=== PATIENT | male | born 1970 | race African-American/Black ===

== ENCOUNTER 2017-12-22 08:41 | Inpatient (IN) | payer MEDICARE, MEDICAID ==
[2017-12-22] MEDS: ONDANSETRON 4 MG INJ IV (09:40)
[2017-12-22 09:53] LABS: ADD MAN DIFF? NO
[2017-12-22 10:01] LABS: WHITE BLOOD COUNT 11.7 10^3/ul (4.8-10.8)
[2017-12-22 10:01] LABS: ABNORMAL IP MESSAGE 1; BASOPHILS % 0.2 % (0.0-2.0); EOSINOPHILS % 0.1 % (0.0-7.0); HEMOGLOBIN 15.7 g/dl (14.0-18.0); LYMPHOCYTES # 0.2 10^3/ul (0.8-2.9); LYMPHOCYTES % 1.6 % (15.0-51.0); MEAN CORPUSCULAR HEMOGLOBIN 27.6 pg (29.0-33.0); MEAN CORPUSCULAR HGB CONC 34.1 g/dl (32.0-37.0); MONOCYTE # 0.7 10^3/ul (0.3-0.9); MONOCYTES % 6.2 % (0.0-11.0); NEUTROPHIL # 10.7 10^3/ul (1.6-7.5); PLATELET COUNT 172 10^3/UL (140-415); POSITIVE DIFF @See below; RED BLOOD COUNT 5.68 10^6/ul (4.70-6.10); RED CELL DISTRIBUTION WIDTH 13.9 % (11.5-14.5)
[2017-12-22 10:14] LABS: ALANINE AMINOTRANSFERASE 78 IU/L (13-69); ALBUMIN 4.6 g/dl (3.3-4.9); ALBUMIN/GLOBULIN RATIO 0.97; ALKALINE PHOSPHATASE 169 IU/L (42-121); ANION GAP 23 (8-16); ASPARTATE AMINO TRANSFERASE 55 IU/L (15-46); BILIRUBIN,INDIRECT 1.4 mg/dl (0-1.1); BILIRUBIN,TOTAL 1.4 mg/dl (0.2-1.3); BLOOD UREA NITROGEN 14 mg/dl (7-20); CALCIUM 9.6 mg/dl (8.4-10.2); CARBON DIOXIDE 19 mmol/L (21-31); CHLORIDE 87 mmol/L (97-110); CREATININE 0.66 mg/dl (0.61-1.24); GLUCOSE 111 mg/dl (70-220); LIPASE 64 U/L (23-300); POTASSIUM 5.1 mmol/L (3.5-5.1); SODIUM 124 mmol/L (135-144); TOTAL PROTEIN 9.3 g/dl (6.1-8.1)
[2017-12-22 10:26] LABS: TROPONIN-I < 0.012 ng/ml (0.000-0.120)
[2017-12-22 10:35] LABS: ADD UMIC YES; UR ASCORBIC ACID 40 mg/dL (NEGATIVE); UR BACTERIA FEW /HPF (NONE SEEN); UR BILIRUBIN (Dip) NEGATIVE (NEGATIVE); UR BLOOD (Dip) 1+ mg/dL (NEGATIVE); UR CLARITY SLIGHTLY CLOUDY (CLEAR); UR COLOR AMBER (YELLOW); UR GLUCOSE (Dip) NEGATIVE (NEGATIVE); UR KETONES (Dip) NEGATIVE (NEGATIVE); UR LEUKOCYTE ESTERASE (Dip) 1+ Leu/ul (NEGATIVE); UR MUCUS FEW /HPF (NONE SEEN); UR NITRITE (Dip) NEGATIVE (NEGATIVE); UR RBC 46 /HPF (0-5); UR SPECIFIC GRAVITY (Dip) 1.029 (1.003-1.030); UR SQUAMOUS EPITHELIAL CELL FEW /HPF (FEW); UR TOTAL PROTEIN (Dip) 3+ mg/dl (NEGATIVE); UR UROBILINOGEN (Dip) 1+ mg/dL (NEGATIVE); UR WBC 142 /HPF (0-5)
[2017-12-22] MEDS: METOCLOPRAMIDE 10 MG INJ IV (10:51)
[2017-12-22] MEDS: FAMOTIDINE 20 MG INJ IV (10:51)
[2017-12-22 11:08] LABS: ANISOCYTOSIS 1+ (0-0); BAND NEUTROPHILS #M 2.8 10^3/ul (0.0-0.6); BAND NEUTROPHILS % (M) 24 % (0-4); LYMPHOCYTES #M 0.2 10^3/ul (0.8-2.9); LYMPHOCYTES % (M) 2 % (15-51); MONOCYTE #M 0.7 10^3/ul (0.3-0.9); MONOCYTES % (M) 6 % (0-11); PLATELET ESTIMATE NORMAL; POIKILOCYTOSIS 2+ (0-0); SEG NEUT #M 8.3 10^3/ul (1.6-7.5); SEGMENTED NEUTROPHILS (M) % 68 % (39-77); SMUDGE%M 3 % (0-0)
[2017-12-22] MEDS: PIPER-TAZO 3.375 GM IV (PMX) 100 ML IVPB ×2 (11:23→18:23)
[2017-12-22] MEDS: SODIUM CHLORIDE 0.9% 1L BAG IV* (11:23)
[2017-12-22] MEDS ORDERED: NEOSTIGMINE 10 MG INJ IV (12:00)
[2017-12-22] MEDS ORDERED: MAGNESIUM HYDROXIDE 30ML CUP PO (12:30)
[2017-12-22] MEDS ORDERED: DOCUSATE SODIUM 100 MG CAP PO (12:30)
[2017-12-22] MEDS ORDERED: NACL 0.9% 3 ML SYG IV (12:30)
[2017-12-22] MEDS: NEOSTIGMINE 3 MG/3 ML SYRINGE IV (12:45)
[2017-12-22] MEDS: SOD CHLORIDE 0.9% 1,000 ML IV ×3 (12:45→17:10)
[2017-12-22] MEDS ORDERED: hydrALAzine 20 MG INJ (13:17)
[2017-12-22 15:06] LABS: LACTIC ACID 3.4 mmol/L (0.5-2.0)
[2017-12-22 17:32] LABS: LACTIC ACID 2.2 mmol/L (0.5-2.0)
[2017-12-22] MEDS: DIAZEPAM 5 MG/ML SYG IV (20:22)
[2017-12-23] MEDS: DIAZEPAM 5 MG/ML SYG IV ×4 (00:28→18:40)
[2017-12-23] MEDS: PIPER-TAZO 3.375 GM IV (PMX) 100 ML IVPB ×4 (00:28→18:39)
[2017-12-23] MEDS: SOD CHLORIDE 0.9% 1,000 ML IV ×4 (00:29→21:41)
[2017-12-23 06:17] LABS: ADD MAN DIFF? NO
[2017-12-23 06:26] LABS: ABNORMAL IP MESSAGE 1; BASOPHILS % 0.2 % (0.0-2.0); EOSINOPHILS % 0.1 % (0.0-7.0); HEMATOCRIT 37.6 % (42.0-52.0); LYMPHOCYTES # 0.4 10^3/ul (0.8-2.9); MEAN CORPUSCULAR HEMOGLOBIN 27.5 pg (29.0-33.0); MEAN CORPUSCULAR HGB CONC 34.6 g/dl (32.0-37.0); MEAN CORPUSCULAR VOLUME 79.5 fl (82.0-101.0); MEAN PLATELET VOLUME 11.4 fl (7.4-10.4); MONOCYTES % 11.7 % (0.0-11.0); NEUTROPHILS % 82.3 % (39.0-77.0); PLATELET COUNT 211 10^3/UL (140-415); POSITIVE DIFF @See below; RED BLOOD COUNT 4.73 10^6/ul (4.70-6.10); RED CELL DISTRIBUTION WIDTH 14.1 % (11.5-14.5)
[2017-12-23 06:26] LABS: WHITE BLOOD COUNT 8.6 10^3/ul (4.8-10.8)
[2017-12-23 07:11] LABS: ALANINE AMINOTRANSFERASE 58 IU/L (13-69); ALBUMIN/GLOBULIN RATIO 0.88; ALKALINE PHOSPHATASE 121 IU/L (42-121); ANION GAP 18 (8-16); ASPARTATE AMINO TRANSFERASE 26 IU/L (15-46); BLOOD UREA NITROGEN 15 mg/dl (7-20); CALCIUM 8.6 mg/dl (8.4-10.2); CARBON DIOXIDE 20 mmol/L (21-31); CHLORIDE 98 mmol/L (97-110); CREATININE 0.68 mg/dl (0.61-1.24); GLUCOSE 90 mg/dl (70-220); PHOSPHORUS 3.1 mg/dl (2.5-4.9); POTASSIUM 3.7 mmol/L (3.5-5.1); SODIUM 132 mmol/L (135-144); TOTAL PROTEIN 6.4 g/dl (6.1-8.1)
[2017-12-23 08:01] LABS: HEMOGLOBIN A1C 5.4 % (0-5.9)
[2017-12-23] MEDS: hydrALAzine 20 MG INJ IV (12:05)
[2017-12-24] MEDS: DIAZEPAM 5 MG/ML SYG IV ×3 (00:37→11:35)
[2017-12-24] MEDS: hydrALAzine 20 MG INJ IV (01:14)
[2017-12-24] MEDS: PIPER-TAZO 3.375 GM IV (PMX) 100 ML IVPB ×5 (05:33→23:33)
[2017-12-24] MEDS: SOD CHLORIDE 0.9% 1,000 ML IV ×3 (05:41→23:37)
[2017-12-24 06:07] LABS: ADD MAN DIFF? NO
[2017-12-24 06:11] LABS: BASOPHILS % 0.2 % (0.0-2.0); EOSINOPHILS % 0.2 % (0.0-7.0); HEMATOCRIT 36.4 % (42.0-52.0); HEMOGLOBIN 12.6 g/dl (14.0-18.0); LYMPHOCYTES % 6.3 % (15.0-51.0); MEAN CORPUSCULAR HEMOGLOBIN 28.2 pg (29.0-33.0); MEAN CORPUSCULAR HGB CONC 34.6 g/dl (32.0-37.0); MEAN CORPUSCULAR VOLUME 81.4 fl (82.0-101.0); MEAN PLATELET VOLUME 10.6 fl (7.4-10.4); MONOCYTES % 11.1 % (0.0-11.0); PLATELET COUNT 188 10^3/UL (140-415); RED BLOOD COUNT 4.47 10^6/ul (4.70-6.10)
[2017-12-24 06:11] LABS: WHITE BLOOD COUNT 8.1 10^3/ul (4.8-10.8)
[2017-12-24 06:12] LABS: ABNORMAL IP MESSAGE 1; LYMPHOCYTES # 0.5 10^3/ul (0.8-2.9); MONOCYTE # 0.9 10^3/ul (0.3-0.9); NEUTROPHIL # 6.6 10^3/ul (1.6-7.5); POSITIVE DIFF @See below
[2017-12-24 06:34] LABS: ANION GAP 17 (8-16); BLOOD UREA NITROGEN 16 mg/dl (7-20); CALCIUM 8.2 mg/dl (8.4-10.2); CARBON DIOXIDE 21 mmol/L (21-31); CHLORIDE 105 mmol/L (97-110); CREATININE 0.57 mg/dl (0.61-1.24); GLUCOSE 73 mg/dl (70-220); MAGNESIUM 2.1 mg/dl (1.7-2.5); SODIUM 140 mmol/L (135-144)
[2017-12-24 06:42] LABS: POTASSIUM 2.9 mmol/L (3.5-5.1)
[2017-12-24] MEDS: POTASSIUM CHLORIDE 100 ML IVPB ×3 (07:32→11:35)
[2017-12-24] MEDS: BISACODYL 10 MG SUPP PR (16:17)
[2017-12-24] MEDS: KETOROLAC 30 MG INJ IV (22:15)
[2017-12-25] MEDS: hydrALAzine 20 MG INJ IV ×2 (01:29→16:08)
[2017-12-25] MEDS: morphine 2 MG INJ IV (02:35)
[2017-12-25 05:42] LABS: ADD MAN DIFF? NO
[2017-12-25 05:51] LABS: WHITE BLOOD COUNT 9.1 10^3/ul (4.8-10.8)
[2017-12-25 05:51] LABS: BASOPHILS % 0.4 % (0.0-2.0); EOSINOPHILS % 0.3 % (0.0-7.0); HEMATOCRIT 37.1 % (42.0-52.0); HEMOGLOBIN 12.3 g/dl (14.0-18.0); LYMPHOCYTES # 0.6 10^3/ul (0.8-2.9); LYMPHOCYTES % 6.9 % (15.0-51.0); MEAN CORPUSCULAR HEMOGLOBIN 27.3 pg (29.0-33.0); MEAN CORPUSCULAR HGB CONC 33.2 g/dl (32.0-37.0); MEAN CORPUSCULAR VOLUME 82.3 fl (82.0-101.0); MEAN PLATELET VOLUME 10.1 fl (7.4-10.4); MONOCYTE # 0.9 10^3/ul (0.3-0.9); MONOCYTES % 9.6 % (0.0-11.0); NEUTROPHIL # 7.2 10^3/ul (1.6-7.5); PLATELET COUNT 197 10^3/UL (140-415); RED BLOOD COUNT 4.51 10^6/ul (4.70-6.10); RED CELL DISTRIBUTION WIDTH 14.5 % (11.5-14.5)
[2017-12-25] MEDS: PIPER-TAZO 3.375 GM IV (PMX) 100 ML IVPB ×3 (06:03→16:52)
[2017-12-25 06:10] LABS: ANION GAP 16 (8-16); BLOOD UREA NITROGEN 15 mg/dl (7-20); CALCIUM 8.4 mg/dl (8.4-10.2); CARBON DIOXIDE 19 mmol/L (21-31); CHLORIDE 106 mmol/L (97-110); CREATININE 0.58 mg/dl (0.61-1.24); GLUCOSE 64 mg/dl (70-220); PHOSPHORUS 2.8 mg/dl (2.5-4.9); POTASSIUM 3.2 mmol/L (3.5-5.1); SODIUM 138 mmol/L (135-144)
[2017-12-25] MEDS: SOD CHLORIDE 0.9% 1,000 ML IV ×3 (09:32→22:22)
[2017-12-25] MEDS: POTASSIUM CHLORIDE 100 ML IVPB ×2 (09:33→11:00)
[2017-12-26] MEDS: PIPER-TAZO 3.375 GM IV (PMX) 100 ML IVPB ×5 (01:02→23:33)
[2017-12-26] MEDS: hydrALAzine 20 MG INJ IV ×3 (01:04→20:18)
[2017-12-26 07:19] LABS: ALBUMIN 3.3 g/dl (3.3-4.9); ANION GAP 15 (8-16); BLOOD UREA NITROGEN 12 mg/dl (7-20); CALCIUM 8.5 mg/dl (8.4-10.2); CARBON DIOXIDE 21 mmol/L (21-31); CHLORIDE 107 mmol/L (97-110); CREATININE 0.48 mg/dl (0.61-1.24); GLUCOSE 83 mg/dl (70-220); MAGNESIUM 1.8 mg/dl (1.7-2.5); PHOSPHORUS 2.6 mg/dl (2.5-4.9); POTASSIUM 3.3 mmol/L (3.5-5.1); SODIUM 140 mmol/L (135-144)
[2017-12-26] MEDS: BISACODYL 10 MG SUPP PR (09:11)
[2017-12-26] MEDS: SOD CHLORIDE 0.9% 1,000 ML IV ×3 (09:11→23:33)
[2017-12-26] MEDS: POTASSIUM CHLORIDE 100 ML IVPB ×2 (10:57→14:01)
[2017-12-26 11:25] LABS: AADO2 Arterial 56.6 mmHg (7.0-24.0); Allen Test ACCEPTAB; Arterial Base Excess -3.5 mmol/L (-3.0-3); Arterial Blood Gas Oxygen Sat 98.2 mmHG (95.0-98.0); Arterial COHb 0.6 % (0.0-3.0); Arterial Fraction of Oxyhgb 97.1 % (93.0-99.0); Arterial HCO3 21.7 mmol/L (22.0-26.0); Arterial MetHb 0.5 % (0.0-1.5); Arterial Total Hemglobin 14.2 g/dl (12.0-18.0); Arterial pCO2 39.8 mmhg (35-45); MODE VENT - PC; Site Left Radial
[2017-12-27] MEDS: hydrALAzine 20 MG INJ IV ×2 (04:22→11:43)
[2017-12-27] MEDS: PIPER-TAZO 3.375 GM IV (PMX) 100 ML IVPB ×4 (05:25→23:31)
[2017-12-27 06:14] LABS: ALBUMIN 3.2 g/dl (3.3-4.9); ANION GAP 16 (8-16); BLOOD UREA NITROGEN 17 mg/dl (7-20); CALCIUM 8.8 mg/dl (8.4-10.2); CARBON DIOXIDE 23 mmol/L (21-31); CHLORIDE 108 mmol/L (97-110); CREATININE 0.53 mg/dl (0.61-1.24); GLUCOSE 103 mg/dl (70-220); MAGNESIUM 1.7 mg/dl (1.7-2.5); PHOSPHORUS 2.6 mg/dl (2.5-4.9); POTASSIUM 3.4 mmol/L (3.5-5.1); SODIUM 144 mmol/L (135-144)
[2017-12-27] MEDS: SOD CHLORIDE 0.9% 1,000 ML IV (08:31)
[2017-12-27] MEDS: POTASSIUM CHLORIDE 100 ML IVPB ×2 (09:28→12:26)
[2017-12-27] MEDS: LORAZEPAM 2 MG INJ IV (14:50)
[2017-12-27] MEDS: METOCLOPRAMIDE 10 MG INJ IV ×3 (14:50→23:31)
[2017-12-27] MEDS: DEXTROSE 5%-0.45% NACL 1,000 ML IV (17:40)
[2017-12-27] MEDS: DIAZEPAM 5 MG/ML SYG IV (23:31)
[2017-12-28] MEDS: PIPER-TAZO 3.375 GM IV (PMX) 100 ML IVPB ×3 (06:11→17:48)
[2017-12-28] MEDS: METOCLOPRAMIDE 10 MG INJ IV ×3 (06:11→17:48)
[2017-12-28] MEDS: DEXTROSE 5%-0.45% NACL 1,000 ML IV ×2 (06:50→21:11)
[2017-12-28] MEDS: DIATR MEGLU/DIATRIZOATE SODIUM 120 ML BTL ×2 (08:40)
[2017-12-28] MEDS: BISACODYL 10 MG SUPP PR (08:41)
[2017-12-28] MEDS: DIAZEPAM 5 MG/ML SYG IV (08:42)
[2017-12-28 11:01] LABS: AADO2 Arterial 225.9 mmHg (7.0-24.0); Allen Test ACCEPTAB; Arterial Base Excess 2.5 mmol/L (-3.0-3); Arterial Blood Gas Oxygen Sat 96.5 mmHG (95.0-98.0); Arterial COHb 0.3 % (0.0-3.0); Arterial Fraction of Oxyhgb 95.8 % (93.0-99.0); Arterial HCO3 26.7 mmol/L (22.0-26.0); Arterial MetHb 0.4 % (0.0-1.5); Arterial pCO2 40.1 mmhg (35-45); MODE VENT - PC; Site Left Radial
[2017-12-28] MEDS: POLYETHYLENE GLYCOL 17 GM PACKET PO (16:00)
[2017-12-28] MEDS: PEG/ELECTROLYTES 4L BTL PO (17:48)
[2017-12-28] MEDS: NORepinephrine 8MG/250 ML (PMX 250 ML IV (19:30)
[2017-12-28 19:44] LABS: ABNORMAL IP MESSAGE 1; MEAN CORPUSCULAR HEMOGLOBIN 27.6 pg (29.0-33.0); MEAN CORPUSCULAR HGB CONC 32.3 g/dl (32.0-37.0); MEAN CORPUSCULAR VOLUME 85.6 fl (82.0-101.0); MEAN PLATELET VOLUME 10.1 fl (7.4-10.4); PLATELET COUNT 330 10^3/UL (140-415); POSITIVE DIFF @See below; RED BLOOD COUNT 3.62 10^6/ul (4.70-6.10); RED CELL DISTRIBUTION WIDTH 15.1 % (11.5-14.5)
[2017-12-28 19:46] LABS: ADD MAN DIFF? YES; PATH REVIEW? YES
[2017-12-28] MEDS ORDERED: VANCOMYCIN IV PER PHARMACY XX (20:00)
[2017-12-28] MEDS ORDERED: AMIKACIN IV PER PHARMACY XX (20:00)
[2017-12-28] MEDS: PANTOPRAZOLE IV 80 MG in SOD CHLORIDE 0.9% 100 ML IVPB (20:00)
[2017-12-28 20:08] LABS: ALANINE AMINOTRANSFERASE 75 IU/L (13-69); ALBUMIN 2.8 g/dl (3.3-4.9); ALBUMIN/GLOBULIN RATIO 0.93; ALKALINE PHOSPHATASE 104 IU/L (42-121); ANION GAP 12 (8-16); ASPARTATE AMINO TRANSFERASE 58 IU/L (15-46); BILIRUBIN,INDIRECT 0.4 mg/dl (0-1.1); BILIRUBIN,TOTAL 0.4 mg/dl (0.2-1.3); BLOOD UREA NITROGEN 41 mg/dl (7-20); CALCIUM 8.3 mg/dl (8.4-10.2); CARBON DIOXIDE 25 mmol/L (21-31); CHLORIDE 107 mmol/L (97-110); CREATININE 0.65 mg/dl (0.61-1.24); GLUCOSE 129 mg/dl (70-220); POTASSIUM 3.3 mmol/L (3.5-5.1); SODIUM 141 mmol/L (135-144); TOTAL PROTEIN 5.8 g/dl (6.1-8.1)
[2017-12-28 20:19] LABS: BAND NEUTROPHILS #M 2.8 10^3/ul (0.0-0.6); BAND NEUTROPHILS % (M) 8 % (0-4); LYMPHOCYTES #M 2.4 10^3/ul (0.8-2.9); LYMPHOCYTES % (M) 7 % (15-51); METAMYELOCYTES #M 0.3 10^3/ul (0.0-0.0); METAMYELOCYTES %M 1 % (0-0); MONOCYTE #M 1.4 10^3/ul (0.3-0.9); MONOCYTES % (M) 4 % (0-11); PLATELET ESTIMATE NORMAL; REACTIVE LYMPHOCYTES #M 0.3 10^3/ul (0.0-0.0); REACTIVE LYMPHOCYTES% (M) 1 % (0-0); SEG NEUT #M 28.6 10^3/ul (1.6-7.5); SEGMENTED NEUTROPHILS (M) % 79 % (39-77); SMUDGE%M 3 % (0-0)
[2017-12-28 20:25] LABS: ADD MAN DIFF? NO
[2017-12-28 20:28] LABS: WHITE BLOOD COUNT 19.6 10^3/ul (4.8-10.8)
[2017-12-28 20:28] LABS: HEMATOCRIT 21.6 % (42.0-52.0); MEAN CORPUSCULAR HEMOGLOBIN 28.2 pg (29.0-33.0); MEAN CORPUSCULAR HGB CONC 32.4 g/dl (32.0-37.0); MEAN CORPUSCULAR VOLUME 87.1 fl (82.0-101.0); MEAN PLATELET VOLUME 10.2 fl (7.4-10.4); PLATELET COUNT 202 10^3/UL (140-415); POSITIVE DIFF @See below; RED BLOOD COUNT 2.48 10^6/ul (4.70-6.10); RED CELL DISTRIBUTION WIDTH 15.1 % (11.5-14.5)
[2017-12-28 20:29] LABS: LACTIC ACID 1.9 mmol/L (0.5-2.0)
[2017-12-28 20:58] LABS: ANISOCYTOSIS 1+ (0-0); BAND NEUTROPHILS #M 3.3 10^3/ul (0.0-0.6); BAND NEUTROPHILS % (M) 17 % (0-4); LYMPHOCYTES #M 1.1 10^3/ul (0.8-2.9); LYMPHOCYTES % (M) 6 % (15-51); MICROCYTOSIS 1+ (0-0); MONOCYTE #M 0.3 10^3/ul (0.3-0.9); MONOCYTES % (M) 2 % (0-11); PLATELET ESTIMATE NORMAL; SEG NEUT #M 15.3 10^3/ul (1.6-7.5); SEGMENTED NEUTROPHILS (M) % 75 % (39-77); SMUDGE%M 6 % (0-0)
[2017-12-28] MEDS: PANTOPRAZOLE IV 80 MG in SOD CHLORIDE 0.9% 100 ML IV (21:06)
[2017-12-28] MEDS: AMIKACIN 1,000 MG in SOD CHLORIDE 0.9% 250 ML IVPB (22:02)
[2017-12-28] MEDS: VANCOMYCIN 1.75 GM in SOD CHLORIDE 0.9% 500 ML IVPB (23:12)
[2017-12-29] MEDS: METOCLOPRAMIDE 10 MG INJ IV ×4 (00:22→18:21)
[2017-12-29] MEDS: PIPER-TAZO 3.375 GM IV (PMX) 100 ML IVPB ×4 (00:22→18:21)
[2017-12-29 01:55] LABS: ADD MAN DIFF? NO
[2017-12-29 01:56] LABS: OCCULT BLOOD STOOL POSITIVE (NEGATIVE)
[2017-12-29 01:59] LABS: WHITE BLOOD COUNT 24.1 10^3/ul (4.8-10.8)
[2017-12-29 01:59] LABS: ABNORMAL IP MESSAGE 1; BASOPHIL # 0.1 10^3/ul (0.0-0.1); BASOPHILS % 0.2 % (0.0-2.0); HEMATOCRIT 22.3 % (42.0-52.0); HEMOGLOBIN 7.4 g/dl (14.0-18.0); LYMPHOCYTES # 0.9 10^3/ul (0.8-2.9); LYMPHOCYTES % 3.8 % (15.0-51.0); MEAN CORPUSCULAR HEMOGLOBIN 28.2 pg (29.0-33.0); MEAN CORPUSCULAR HGB CONC 33.2 g/dl (32.0-37.0); MEAN CORPUSCULAR VOLUME 85.1 fl (82.0-101.0); MEAN PLATELET VOLUME 10.1 fl (7.4-10.4); MONOCYTE # 0.8 10^3/ul (0.3-0.9); MONOCYTES % 3.4 % (0.0-11.0); NEUTROPHIL # 21.4 10^3/ul (1.6-7.5); NEUTROPHILS % 88.7 % (39.0-77.0); PLATELET COUNT 223 10^3/UL (140-415); POSITIVE DIFF @See below; RED BLOOD COUNT 2.62 10^6/ul (4.70-6.10); RED CELL DISTRIBUTION WIDTH 15.1 % (11.5-14.5)
[2017-12-29 02:36] LABS: ANISOCYTOSIS 1+ (0-0); BAND NEUTROPHILS % (M) 17 % (0-4); GIANT THROMBO% (M) 1 % (0-0); LYMPHOCYTES % (M) 4 % (15-51); MICROCYTOSIS 1+ (0-0); MONOCYTES % (M) 2 % (0-11); MYELOCYTES % (M) 1 % (0-0); PLATELET ESTIMATE NORMAL; SEGMENTED NEUTROPHILS (M) % 76 % (39-77); SMUDGE%M 4 % (0-0)
[2017-12-29 02:47] LABS: LYMPHOCYTES #M 0.9 10^3/ul (0.8-2.9); MONOCYTE #M 0.4 10^3/ul (0.3-0.9); MYELOCYTES #M 0.2 10^3/ul (0.0-0.0); SEG NEUT #M 19.3 10^3/ul (1.7-7.5)
[2017-12-29 04:17] LABS: Allen Test ACCEPTAB; Arterial Base Excess 0 mmol/L (-3.0-3); Arterial Blood Gas Oxygen Sat 94.2 mmHG (95.0-98.0); Arterial COHb 0.3 % (0.0-3.0); Arterial Fraction of Oxyhgb 93.5 % (93.0-99.0); Arterial HCO3 24.1 mmol/L (22.0-26.0); Arterial MetHb 0.4 % (0.0-1.5); Arterial Total Hemglobin 10.2 g/dl (12.0-18.0); Arterial pCO2 36.9 mmhg (35-45); Blood Gas Low PEEP Setting 0 cmH2O; MODE VENT - AC; Site Left Radial
[2017-12-29 06:13] LABS: ALBUMIN 2.3 g/dl (3.3-4.9); ANION GAP 8 (8-16); BLOOD UREA NITROGEN 29 mg/dl (7-20); CARBON DIOXIDE 26 mmol/L (21-31); CHLORIDE 108 mmol/L (97-110); GLUCOSE 113 mg/dl (70-220); MAGNESIUM 1.6 mg/dl (1.7-2.5); PHOSPHORUS 1.4 mg/dl (2.5-4.9); POTASSIUM 3.1 mmol/L (3.5-5.1); SODIUM 139 mmol/L (135-144)
[2017-12-29] MEDS: VANCOMYCIN 1.5 GM in SOD CHLORIDE 0.9% 250 ML IVPB ×2 (06:13→14:44)
[2017-12-29 07:26] LABS: WHITE BLOOD COUNT 18.7 10^3/ul (4.8-10.8)
[2017-12-29 07:26] LABS: HEMATOCRIT 26.7 % (42.0-52.0); HEMOGLOBIN 8.7 g/dl (14.0-18.0); MEAN CORPUSCULAR HGB CONC 32.6 g/dl (32.0-37.0); MEAN CORPUSCULAR VOLUME 85.9 fl (82.0-101.0); MEAN PLATELET VOLUME 10.9 fl (7.4-10.4); NUCLEATED RED BLOOD CELLS% 0.1 /100WBC (0.0-0.0); POSITIVE DIFF @See below; RED BLOOD COUNT 3.11 10^6/ul (4.70-6.10)
[2017-12-29 07:34] LABS: ADD MAN DIFF? YES; PLATELET COUNT 173 10^3/UL (140-415)
[2017-12-29] MEDS: ACETAMINOPHEN 1000MG/100ML IV 100 ML IVPB (08:27)
[2017-12-29] MEDS: PANTOPRAZOLE IV 80 MG in SOD CHLORIDE 0.9% 100 ML IV ×2 (08:27→18:21)
[2017-12-29 08:46] LABS: ANISOCYTOSIS 1+ (0-0); BAND NEUTROPHILS #M 0.9 10^3/ul (0.0-0.6); BAND NEUTROPHILS % (M) 5 % (0-4); BASOPHIL #M 0.1 10^3/ul (0.0-0.0); BASOPHILS % (M) 1 % (0-2); BURR CELLS 1+ (0-0); LYMPHOCYTES % (M) 11 % (15-51); MICROCYTOSIS 1+ (0-0); MONOCYTE #M 0.7 10^3/ul (0.3-0.9); MONOCYTES % (M) 4 % (0-11); PLATELET ESTIMATE NORMAL; PLATELET MORPHOLOGY COMMENT @See below; POIKILOCYTOSIS 1+ (0-0); SEG NEUT #M 14.9 10^3/ul (1.6-7.5); SEGMENTED NEUTROPHILS (M) % 79 % (39-77); SMUDGE%M 11 % (0-0)
[2017-12-29] MEDS: POLYETHYLENE GLYCOL 17 GM PACKET PO (09:00)
[2017-12-29 10:49] LABS: INR 1.24; PROTIME 15.8 Sec (11.9-14.9); PT RATIO 1.2
[2017-12-29] MEDS: LIDOCAINE 2% (MDV) 20 ML INJ INJ (11:00)
[2017-12-29] MEDS ORDERED: ACETYLCYSTEINE 20% 4 ML VIAL ×2 (11:00→11:53)
[2017-12-29] MEDS: POTASSIUM CHLORIDE 100 ML IVPB ×3 (11:16→16:20)
[2017-12-29] MEDS: ACETYLCYSTEINE 20% 4 ML VIAL NEB ×3 (12:13→19:29)
[2017-12-29] MEDS: DEXTROSE 5%-0.45% NACL 1,000 ML IV ×2 (12:56→22:50)
[2017-12-29] MEDS: MIDAZOLAM 1 MG/ML 2 ML INJ IV (12:56)
[2017-12-29] MEDS: FENTAnyl 50 MCG/ML VIAL IV (12:56)
[2017-12-29] MEDS: ALBUTEROL/IPRATROPIUM (NEB) 3 ML AMP HHN ×2 (13:48→19:29)
[2017-12-29] MEDS ORDERED: POLYETHYLENE GLYCOL 17 GM PACKET PO (15:30)
[2017-12-29] MEDS: AMIKACIN 1,000 MG in SOD CHLORIDE 0.9% 250 ML IVPB (21:30)
[2017-12-29 21:46] LABS: POTASSIUM 3.7 mmol/L (3.5-5.1)
[2017-12-29 21:46] LABS: MAGNESIUM 1.5 mg/dl (1.7-2.5)
[2017-12-29 21:55] LABS: VANCOMYCIN,TROUGH 37.4 ug/ml (10.0-20.0)
[2017-12-29 23:10] LABS: ABNORMAL IP MESSAGE 1; MEAN CORPUSCULAR HGB CONC 32.9 g/dl (32.0-37.0); MEAN CORPUSCULAR VOLUME 85.4 fl (82.0-101.0); MEAN PLATELET VOLUME 9.9 fl (7.4-10.4); PLATELET COUNT 220 10^3/UL (140-415); POSITIVE DIFF @See below; RED BLOOD COUNT 2.46 10^6/ul (4.70-6.10); RED CELL DISTRIBUTION WIDTH 15.3 % (11.5-14.5)
[2017-12-29 23:10] LABS: WHITE BLOOD COUNT 26.5 10^3/ul (4.8-10.8)
[2017-12-29 23:19] LABS: ADD MAN DIFF? YES; HEMOGLOBIN 6.9 g/dl (14.0-18.0)
[2017-12-29 23:48] LABS: ABNORMAL IP MESSAGE 1; HEMATOCRIT 23.2 % (42.0-52.0); HEMOGLOBIN 7.7 g/dl (14.0-18.0); MEAN CORPUSCULAR HEMOGLOBIN 28.3 pg (29.0-33.0); MEAN CORPUSCULAR HGB CONC 33.2 g/dl (32.0-37.0); MEAN CORPUSCULAR VOLUME 85.3 fl (82.0-101.0); MEAN PLATELET VOLUME 10.3 fl (7.4-10.4); PLATELET COUNT 223 10^3/UL (140-415); POSITIVE DIFF @See below; RED BLOOD COUNT 2.72 10^6/ul (4.70-6.10); RED CELL DISTRIBUTION WIDTH 15.4 % (11.5-14.5)
[2017-12-29 23:48] LABS: WHITE BLOOD COUNT 32.6 10^3/ul (4.8-10.8)
[2017-12-29 23:51] LABS: ADD MAN DIFF? YES
[2017-12-30 00:02] LABS: ANISOCYTOSIS 1+ (0-0); BAND NEUTROPHILS #M 3.1 10^3/ul (0.0-0.6); BAND NEUTROPHILS % (M) 12 % (0-4); LYMPHOCYTES % (M) 4 % (15-51); MICROCYTOSIS 1+ (0-0); MYELOCYTES #M 0.5 10^3/ul (0.0-0.0); MYELOCYTES % (M) 2 % (0-0); PLATELET ESTIMATE NORMAL; POLYCHROMASIA 1+ (0-0); SEG NEUT #M 22.6 10^3/ul (1.6-7.5); SEGMENTED NEUTROPHILS (M) % 82 % (39-77)
[2017-12-30] MEDS: PIPER-TAZO 3.375 GM IV (PMX) 100 ML IVPB ×4 (00:13→18:04)
[2017-12-30] MEDS: METOCLOPRAMIDE 10 MG INJ IV ×4 (00:13→18:04)
[2017-12-30] MEDS: MAGNESIUM SULFATE 3 GM in DEXTROSE 5% 100 ML IVPB (00:13)
[2017-12-30 00:16] LABS: ANISOCYTOSIS 1+ (0-0); BAND NEUTROPHILS #M 7.4 10^3/ul (0.0-0.6); BAND NEUTROPHILS % (M) 23 % (0-4); GIANT THROMBO% (M) 1 % (0-0); LYMPHOCYTES #M 1.3 10^3/ul (0.8-2.9); LYMPHOCYTES % (M) 4 % (15-51); METAMYELOCYTES #M 0.3 10^3/ul (0.0-0.0); METAMYELOCYTES %M 1 % (0-0); MONOCYTE #M 0.3 10^3/ul (0.3-0.9); MONOCYTES % (M) 1 % (0-11); PLATELET ESTIMATE NORMAL; POIKILOCYTOSIS 2+ (0-0); REACTIVE LYMPHOCYTES #M 0.3 10^3/ul (0.0-0.0); REACTIVE LYMPHOCYTES% (M) 1 % (0-0); SEG NEUT #M 25.2 10^3/ul (1.6-7.5); SEGMENTED NEUTROPHILS (M) % 70 % (39-77); SMUDGE%M 13 % (0-0)
[2017-12-30] MEDS: ACETYLCYSTEINE 20% 4 ML VIAL NEB ×4 (01:13→19:22)
[2017-12-30] MEDS: ALBUTEROL/IPRATROPIUM (NEB) 3 ML AMP HHN ×4 (01:13→19:22)
[2017-12-30] MEDS: PANTOPRAZOLE IV 80 MG in SOD CHLORIDE 0.9% 100 ML IV ×2 (02:00→04:32)
[2017-12-30 05:20] LABS: AADO2 Arterial 227.1 mmHg (7.0-24.0); Allen Test ACCEPTAB; Arterial Blood Gas Oxygen Sat 99.5 mmHG (95.0-98.0); Arterial COHb 0.4 % (0.0-3.0); Arterial Fraction of Oxyhgb 98.3 % (93.0-99.0); Arterial HCO3 20.5 mmol/L (22.0-26.0); Arterial MetHb 0.8 % (0.0-1.5); Arterial Total Hemglobin 7.4 g/dl (12.0-18.0); Arterial pCO2 29.8 mmhg (35-45); MODE VENT - AC; Site Left Radial
[2017-12-30 06:14] LABS: ABNORMAL IP MESSAGE 1; HEMATOCRIT 18.9 % (42.0-52.0); MEAN CORPUSCULAR HEMOGLOBIN 27.6 pg (29.0-33.0); MEAN CORPUSCULAR HGB CONC 32.3 g/dl (32.0-37.0); MEAN CORPUSCULAR VOLUME 85.5 fl (82.0-101.0); MEAN PLATELET VOLUME 10.5 fl (7.4-10.4); PLATELET COUNT 197 10^3/UL (140-415); POSITIVE DIFF @See below; RED BLOOD COUNT 2.21 10^6/ul (4.70-6.10); RED CELL DISTRIBUTION WIDTH 15.3 % (11.5-14.5)
[2017-12-30 06:14] LABS: WHITE BLOOD COUNT 17.7 10^3/ul (4.8-10.8)
[2017-12-30] MEDS: DEXTROSE 5%-0.45% NACL 1,000 ML IV ×2 (06:26→21:42)
[2017-12-30 06:48] LABS: ADD MAN DIFF? YES; HEMOGLOBIN 6.1 g/dl (14.0-18.0)
[2017-12-30] MEDS: ONDANSETRON 4 MG INJ IV (06:57)
[2017-12-30 07:09] LABS: ALBUMIN 2.1 g/dl (3.3-4.9); ANION GAP 12 (8-16); BLOOD UREA NITROGEN 39 mg/dl (7-20); CALCIUM 8.4 mg/dl (8.4-10.2); CARBON DIOXIDE 23 mmol/L (21-31); CHLORIDE 108 mmol/L (97-110); CREATININE 1.34 mg/dl (0.61-1.24); GLUCOSE 122 mg/dl (70-220); MAGNESIUM 2.4 mg/dl (1.7-2.5); PHOSPHORUS 1.9 mg/dl (2.5-4.9); POTASSIUM 3.2 mmol/L (3.5-5.1); SODIUM 140 mmol/L (135-144)
[2017-12-30 07:48] LABS: ADD MAN DIFF? NO
[2017-12-30 07:50] LABS: WHITE BLOOD COUNT 20.2 10^3/ul (4.8-10.8)
[2017-12-30 07:50] LABS: ABNORMAL IP MESSAGE 1; BASOPHILS % 0.1 % (0.0-2.0); EOSINOPHILS % 0.2 % (0.0-7.0); HEMATOCRIT 20.6 % (42.0-52.0); LYMPHOCYTES # 0.7 10^3/ul (0.8-2.9); LYMPHOCYTES % 3.6 % (15.0-51.0); MEAN CORPUSCULAR HEMOGLOBIN 28.7 pg (29.0-33.0); MEAN CORPUSCULAR VOLUME 89.6 fl (82.0-101.0); MEAN PLATELET VOLUME 10.7 fl (7.4-10.4); MONOCYTES % 4.9 % (0.0-11.0); NUCLEATED RED BLOOD CELLS% 0.1 /100WBC (0.0-0.0); PLATELET COUNT 192 10^3/UL (140-415); POSITIVE DIFF @See below; RED CELL DISTRIBUTION WIDTH 15.8 % (11.5-14.5)
[2017-12-30 07:54] LABS: HEMOGLOBIN 6.6 g/dl (14.0-18.0)
[2017-12-30] MEDS ORDERED: POTASSIUM PHOSPHATE 40 MEQ in SOD CHLORIDE 0.9% 250 ML IVPB (09:00)
[2017-12-30] MEDS: POTASSIUM CHLORIDE 100 ML IVPB ×3 (09:21→14:27)
[2017-12-30 10:11] LABS: BAND NEUTROPHILS #M 0.7 10^3/ul (0.0-0.6); BAND NEUTROPHILS % (M) 4 % (0-4); BURR CELLS 1+ (0-0); EOSINOPHILS % (M) 1 % (0-7); LYMPHOCYTES #M 0.7 10^3/ul (0.8-2.9); LYMPHOCYTES % (M) 4 % (15-51); MONOCYTE #M 0.7 10^3/ul (0.3-0.9); MONOCYTES % (M) 4 % (0-11); PLATELET ESTIMATE NORMAL; SEG NEUT #M 15.5 10^3/ul (1.6-7.5); SEGMENTED NEUTROPHILS (M) % 87 % (39-77); SMUDGE%M 13 % (0-0)
[2017-12-30] MEDS: SODIUM PHOSPHATE 30 MMOL in SOD CHLORIDE 0.9% 250 ML IV (10:24)
[2017-12-30] MEDS ORDERED: IOHEXOL 14.3 MG(I)/ML (ADULT) BTL PO (15:00)
[2017-12-30] MEDS ORDERED: DIPHENHYDRAMINE 50 MG INJ IV (15:30)
[2017-12-30] MEDS: NA PHOSPHATE/BIPHOS 133 ML ENEMA PR (18:05)
[2017-12-30 20:48] LABS: ADD MAN DIFF? NO
[2017-12-30 20:57] LABS: WHITE BLOOD COUNT 19.4 10^3/ul (4.8-10.8)
[2017-12-30 20:57] LABS: ABNORMAL IP MESSAGE 1; BASOPHILS % 0.2 % (0.0-2.0); EOSINOPHILS # 0.1 10^3/ul (0.0-0.5); EOSINOPHILS % 0.3 % (0.0-7.0); HEMATOCRIT 23.2 % (42.0-52.0); HEMOGLOBIN 7.8 g/dl (14.0-18.0); LYMPHOCYTES # 0.6 10^3/ul (0.8-2.9); LYMPHOCYTES % 2.8 % (15.0-51.0); MEAN CORPUSCULAR HEMOGLOBIN 28.6 pg (29.0-33.0); MEAN CORPUSCULAR HGB CONC 33.6 g/dl (32.0-37.0); MEAN PLATELET VOLUME 10.2 fl (7.4-10.4); MONOCYTE # 0.8 10^3/ul (0.3-0.9); MONOCYTES % 3.9 % (0.0-11.0); NEUTROPHIL # 17.5 10^3/ul (1.6-7.5); NEUTROPHILS % 90.3 % (39.0-77.0); PLATELET COUNT 167 10^3/UL (140-415); POSITIVE DIFF @See below; RED BLOOD COUNT 2.73 10^6/ul (4.70-6.10); RED CELL DISTRIBUTION WIDTH 14.7 % (11.5-14.5)
[2017-12-30 21:17] LABS: INR 1.23; PROTIME 15.7 Sec (11.9-14.9); PT RATIO 1.2
[2017-12-30] MEDS: SOD CHLORIDE 0.9% 250 ML IV* (21:36)
[2017-12-30 22:17] LABS: IMMEDIATE SPIN CROSSMATCH 1 8
[2017-12-31] MEDS: METOCLOPRAMIDE 10 MG INJ IV ×4 (00:27→17:56)
[2017-12-31] MEDS: PANTOPRAZOLE IV 80 MG in SOD CHLORIDE 0.9% 100 ML IV ×3 (00:28→18:33)
[2017-12-31] MEDS: PIPER-TAZO 3.375 GM IV (PMX) 100 ML IVPB ×3 (00:28→12:33)
[2017-12-31] MEDS: ACETYLCYSTEINE 20% 4 ML VIAL NEB ×4 (01:24→19:32)
[2017-12-31] MEDS: ALBUTEROL/IPRATROPIUM (NEB) 3 ML AMP HHN ×4 (01:24→19:32)
[2017-12-31] MEDS: ONDANSETRON 4 MG INJ IV (03:59)
[2017-12-31 05:18] LABS: AADO2 Arterial 20.6 mmHg (7.0-24.0); Allen Test ACCEPTAB; Arterial Base Excess -3.3 mmol/L (-3.0-3); Arterial Blood Gas Oxygen Sat 99.1 mmHG (95.0-98.0); Arterial COHb 0.9 % (0.0-3.0); Arterial Fraction of Oxyhgb 97.9 % (93.0-99.0); Arterial HCO3 20.3 mmol/L (22.0-26.0); Arterial MetHb 0.3 % (0.0-1.5); Arterial Total Hemglobin 8.9 g/dl (12.0-18.0); Arterial pCO2 30.9 mmhg (35-45); MODE VENT - AC; Site Left Radial
[2017-12-31 05:47] LABS: ABNORMAL IP MESSAGE 1; BASOPHILS % 0.1 % (0.0-2.0); EOSINOPHILS # 0.1 10^3/ul (0.0-0.5); EOSINOPHILS % 0.3 % (0.0-7.0); HEMATOCRIT 24.5 % (42.0-52.0); HEMOGLOBIN 8.4 g/dl (14.0-18.0); LYMPHOCYTES # 0.6 10^3/ul (0.8-2.9); LYMPHOCYTES % 3.2 % (15.0-51.0); MEAN CORPUSCULAR HEMOGLOBIN 28.5 pg (29.0-33.0); MEAN CORPUSCULAR HGB CONC 34.3 g/dl (32.0-37.0); MEAN CORPUSCULAR VOLUME 83.1 fl (82.0-101.0); MEAN PLATELET VOLUME 10.8 fl (7.4-10.4); MONOCYTE # 0.7 10^3/ul (0.3-0.9); MONOCYTES % 3.8 % (0.0-11.0); NEUTROPHIL # 16.4 10^3/ul (1.6-7.5); NEUTROPHILS % 91.2 % (39.0-77.0); PLATELET COUNT 169 10^3/UL (140-415); POSITIVE DIFF @See below; RED BLOOD COUNT 2.95 10^6/ul (4.70-6.10); RED CELL DISTRIBUTION WIDTH 14.9 % (11.5-14.5)
[2017-12-31 05:48] LABS: ADD MAN DIFF? NO
[2017-12-31 06:20] LABS: VANCOMYCIN,RANDOM 16.4 ug/ml
[2017-12-31 06:23] LABS: ALBUMIN 2.5 g/dl (3.3-4.9); ANION GAP 11 (8-16); BLOOD UREA NITROGEN 41 mg/dl (7-20); CALCIUM 8.2 mg/dl (8.4-10.2); CARBON DIOXIDE 21 mmol/L (21-31); CHLORIDE 112 mmol/L (97-110); CREATININE 1.58 mg/dl (0.61-1.24); GLUCOSE 115 mg/dl (70-220); MAGNESIUM 2.2 mg/dl (1.7-2.5); PHOSPHORUS 3.8 mg/dl (2.5-4.9); POTASSIUM 3.3 mmol/L (3.5-5.1); SODIUM 141 mmol/L (135-144)
[2017-12-31 06:24] LABS: LACTIC ACID 1.5 mmol/L (0.5-2.0)
[2017-12-31] MEDS: AMIKACIN 1,000 MG in SOD CHLORIDE 0.9% 250 ML IVPB (11:37)
[2017-12-31] MEDS: BISACODYL 10 MG SUPP PR (11:37)
[2017-12-31] MEDS: DEXTROSE 5%-0.45% NACL 1,000 ML IV (15:04)
[2017-12-31] MEDS: VANCOMYCIN 1.5 GM in SOD CHLORIDE 0.9% 250 ML IVPB (15:04)
[2017-12-31 18:12] LABS: HEMATOCRIT 22.5 % (42.0-52.0); HEMOGLOBIN 7.6 g/dl (14.0-18.0)
[2017-12-31] MEDS: POTASSIUM CHLORIDE 100 ML IVPB ×2 (18:31→20:37)
[2017-12-31] MEDS: SOD CHLORIDE 0.9% 250 ML IV* (19:07)
[2017-12-31] MEDS: PROPOFOL 20 ML (19:31)
[2017-12-31 19:55] LABS: RETICULOCYTE RBC 2.78
[2017-12-31 19:55] LABS: RETICULOCYTE COUNT # 0.038 X10^6 (0.020-0.110); RETICULOCYTE COUNT % 1.4 % (0.5-1.5)
[2017-12-31 20:12] LABS: ALANINE AMINOTRANSFERASE 42 IU/L (13-69); ALBUMIN 2.5 g/dl (3.3-4.9); ALKALINE PHOSPHATASE 83 IU/L (42-121); ASPARTATE AMINO TRANSFERASE 19 IU/L (15-46); BILIRUBIN,INDIRECT 0.6 mg/dl (0-1.1); BILIRUBIN,TOTAL 0.6 mg/dl (0.2-1.3); TOTAL PROTEIN 5.3 g/dl (6.1-8.1)
[2017-12-31 20:13] LABS: IRON 49 ug/dl (35-150)
[2017-12-31 20:19] LABS: LACTATE DEHYDROGENASE 462 IU/L (313-618)
[2017-12-31 20:22] LABS: % IRON SATURATION 27 % SAT (22-52); TOTAL IRON BINDING CAPACITY 183 ug/dl (241-421)
[2017-12-31 21:40] LABS: IMMEDIATE SPIN CROSSMATCH 1 1
[2018-01-01] MEDS: METOCLOPRAMIDE 10 MG INJ IV ×4 (00:09→18:48)
[2018-01-01] MEDS: ALBUTEROL/IPRATROPIUM (NEB) 3 ML AMP HHN ×4 (02:23→20:08)
[2018-01-01] MEDS: ACETYLCYSTEINE 20% 4 ML VIAL NEB ×4 (02:23→20:08)
[2018-01-01 05:34] LABS: ADD MAN DIFF? NO
[2018-01-01] MEDS: PANTOPRAZOLE IV 80 MG in SOD CHLORIDE 0.9% 100 ML IV ×2 (05:37→20:36)
[2018-01-01 05:47] LABS: ABNORMAL IP MESSAGE 1; BASOPHILS % 0.1 % (0.0-2.0); EOSINOPHILS # 0.1 10^3/ul (0.0-0.5); EOSINOPHILS % 0.4 % (0.0-7.0); HEMATOCRIT 26.6 % (42.0-52.0); HEMOGLOBIN 9.1 g/dl (14.0-18.0); LYMPHOCYTES # 0.5 10^3/ul (0.8-2.9); LYMPHOCYTES % 3.2 % (15.0-51.0); MEAN CORPUSCULAR HEMOGLOBIN 28.4 pg (29.0-33.0); MEAN CORPUSCULAR HGB CONC 34.2 g/dl (32.0-37.0); MEAN CORPUSCULAR VOLUME 83.1 fl (82.0-101.0); MEAN PLATELET VOLUME 10.6 fl (7.4-10.4); MONOCYTE # 0.8 10^3/ul (0.3-0.9); MONOCYTES % 5.3 % (0.0-11.0); NEUTROPHIL # 13.2 10^3/ul (1.6-7.5); PLATELET COUNT 165 10^3/UL (140-415); POSITIVE DIFF @See below; RED CELL DISTRIBUTION WIDTH 15.2 % (11.5-14.5)
[2018-01-01 05:47] LABS: WHITE BLOOD COUNT 14.8 10^3/ul (4.8-10.8)
[2018-01-01 06:10] LABS: ANION GAP 10 (8-16); BLOOD UREA NITROGEN 36 mg/dl (7-20); CALCIUM 8.5 mg/dl (8.4-10.2); CARBON DIOXIDE 20 mmol/L (21-31); CHLORIDE 115 mmol/L (97-110); CREATININE 1.78 mg/dl (0.61-1.24); GLUCOSE 96 mg/dl (70-220); MAGNESIUM 2.1 mg/dl (1.7-2.5); PHOSPHORUS 3.5 mg/dl (2.5-4.9); POTASSIUM 3.3 mmol/L (3.5-5.1); SODIUM 142 mmol/L (135-144)
[2018-01-01] MEDS: DEXTROSE 5%-0.45% NACL 1,000 ML IV (06:28)
[2018-01-01 06:53] LABS: ADD UMIC YES; UR ASCORBIC ACID NEGATIVE (NEGATIVE); UR BACTERIA FEW /HPF (NONE SEEN); UR BILIRUBIN (Dip) NEGATIVE (NEGATIVE); UR BLOOD (Dip) 1+ mg/dL (NEGATIVE); UR BUDDING YEAST FEW /HPF (NONE SEEN); UR CLARITY CLOUDY (CLEAR); UR COLOR YELLOW (YELLOW); UR GLUCOSE (Dip) NEGATIVE (NEGATIVE); UR KETONES (Dip) NEGATIVE (NEGATIVE); UR LEUKOCYTE ESTERASE (Dip) NEGATIVE Leu/ul (NEGATIVE); UR NITRITE (Dip) NEGATIVE (NEGATIVE); UR RBC 1 /HPF (0-5); UR SPECIFIC GRAVITY (Dip) 1.017 (1.003-1.030); UR TOTAL PROTEIN (Dip) 1+ mg/dl (NEGATIVE); UR UROBILINOGEN (Dip) NEGATIVE (NEGATIVE); UR WBC 5 /HPF (0-5)
[2018-01-01 08:56] LABS: CREATININE,URINE RANDOM 51.06 mg/dl (20-370)
[2018-01-01 08:56] LABS: SODIUM,URINE RANDOM 33 mmol/L (30-90)
[2018-01-01] MEDS: POTASSIUM CHLORIDE 100 ML IVPB (09:44)
[2018-01-01] MEDS: BISACODYL 10 MG SUPP PR (09:44)
[2018-01-01 12:23] LABS: HEMATOCRIT 27.3 % (42.0-52.0); HEMOGLOBIN 9.3 g/dl (14.0-18.0)
[2018-01-01 12:40] LABS: ALANINE AMINOTRANSFERASE 29 IU/L (13-69); ALBUMIN 2.8 g/dl (3.3-4.9); ALBUMIN/GLOBULIN RATIO 0.96; ALKALINE PHOSPHATASE 91 IU/L (42-121); ANION GAP 11 (8-16); ASPARTATE AMINO TRANSFERASE 19 IU/L (15-46); BILIRUBIN,INDIRECT 0.8 mg/dl (0-1.1); BLOOD UREA NITROGEN 34 mg/dl (7-20); CALCIUM 8.4 mg/dl (8.4-10.2); CARBON DIOXIDE 20 mmol/L (21-31); CHLORIDE 115 mmol/L (97-110); CREATININE 1.78 mg/dl (0.61-1.24); GLUCOSE 89 mg/dl (70-220); POTASSIUM 3.7 mmol/L (3.5-5.1); SODIUM 142 mmol/L (135-144); TOTAL PROTEIN 5.7 g/dl (6.1-8.1); TRIGLYCERIDES 94 mg/dl (0-149)
[2018-01-01] MEDS: ACCU-CHEK XX ×3 (13:00→20:33)
[2018-01-01 13:03] LABS: PREALBUMIN 11.7 mg/dl (17.6-36.0)
[2018-01-01] MEDS: MEROPENEM 500MG/50 ML (PMX) 50 ML IVPB ×2 (13:04→20:33)
[2018-01-01] MEDS: LIDOCAINE 1% (MPF) 5 ML VIAL SC (14:30)
[2018-01-01 17:26] LABS: HEMATOCRIT 27.6 % (42.0-52.0); HEMOGLOBIN 9.3 g/dl (14.0-18.0)
[2018-01-01] MEDS: TPN 1,000 ML IV (20:34)
[2018-01-02] MEDS: ACCU-CHEK XX ×6 (00:38→20:52)
[2018-01-02] MEDS: METOCLOPRAMIDE 10 MG INJ IV ×4 (00:41→17:14)
[2018-01-02] MEDS: PANTOPRAZOLE IV 80 MG in SOD CHLORIDE 0.9% 100 ML IV ×3 (00:42→17:14)
[2018-01-02 01:02] LABS: HEMATOCRIT 25.5 % (42.0-52.0); HEMOGLOBIN 8.7 g/dl (14.0-18.0)
[2018-01-02] MEDS: ACETYLCYSTEINE 20% 4 ML VIAL NEB ×4 (01:34→19:35)
[2018-01-02] MEDS: ALBUTEROL/IPRATROPIUM (NEB) 3 ML AMP HHN ×4 (01:34→19:34)
[2018-01-02 05:17] LABS: ADD MAN DIFF? NO
[2018-01-02 05:18] LABS: ABNORMAL IP MESSAGE 1; BASOPHILS % 0.2 % (0.0-2.0); EOSINOPHILS % 0.2 % (0.0-7.0); HEMATOCRIT 25.7 % (42.0-52.0); HEMOGLOBIN 8.6 g/dl (14.0-18.0); LYMPHOCYTES # 0.5 10^3/ul (0.8-2.9); LYMPHOCYTES % 3.9 % (15.0-51.0); MEAN CORPUSCULAR HEMOGLOBIN 28.6 pg (29.0-33.0); MEAN CORPUSCULAR HGB CONC 33.5 g/dl (32.0-37.0); MEAN CORPUSCULAR VOLUME 85.4 fl (82.0-101.0); MEAN PLATELET VOLUME 10.8 fl (7.4-10.4); MONOCYTE # 0.9 10^3/ul (0.3-0.9); MONOCYTES % 7.5 % (0.0-11.0); NEUTROPHILS % 85.9 % (39.0-77.0); PLATELET COUNT 188 10^3/UL (140-415); POSITIVE DIFF @See below; RED BLOOD COUNT 3.01 10^6/ul (4.70-6.10); RED CELL DISTRIBUTION WIDTH 15.6 % (11.5-14.5)
[2018-01-02 05:18] LABS: WHITE BLOOD COUNT 11.6 10^3/ul (4.8-10.8)
[2018-01-02 06:13] LABS: ANION GAP 9 (8-16); BLOOD UREA NITROGEN 32 mg/dl (7-20); CALCIUM 8.2 mg/dl (8.4-10.2); CARBON DIOXIDE 23 mmol/L (21-31); CHLORIDE 113 mmol/L (97-110); CREATININE 1.76 mg/dl (0.61-1.24); GLUCOSE 100 mg/dl (70-220); PHOSPHORUS 2.8 mg/dl (2.5-4.9); POTASSIUM 3.1 mmol/L (3.5-5.1); SODIUM 142 mmol/L (135-144)
[2018-01-02] MEDS: TPN 1,000 ML IV (08:51)
[2018-01-02] MEDS: MEROPENEM 500MG/50 ML (PMX) 50 ML IVPB ×2 (08:51→20:48)
[2018-01-02] MEDS: POTASSIUM CHLORIDE 100 ML IVPB (09:44)
[2018-01-02 10:31] LABS: AADO2 Arterial 626.3 mmHg (7.0-24.0); Allen Test ACCEPTAB; Arterial Base Excess 2.6 mmol/L (-3.0-3); Arterial Blood Gas Oxygen Sat 76.5 mmHG (95.0-98.0); Arterial COHb 0.3 % (0.0-3.0); Arterial Fraction of Oxyhgb 75.8 % (93.0-99.0); Arterial HCO3 27.9 mmol/L (22.0-26.0); Arterial MetHb 0.6 % (0.0-1.5); Arterial pCO2 46.1 mmhg (35-45); Blood Gas PS 15; MODE SIMV NIV; Site Left Radial
[2018-01-02 12:18] LABS: HEMATOCRIT 26.1 % (42.0-52.0); HEMOGLOBIN 8.8 g/dl (14.0-18.0)
[2018-01-02 14:33] LABS: CREATININE, RANDOM URINE 57 mg/dL (20-320); MICROALBUMIN 7.9 mg/dL; MICROALBUMIN/CREATININE RATIO 139 (<30)
[2018-01-02 16:47] LABS: HAPTOGLOBIN 309 mg/dL (43-212)
[2018-01-02 18:19] LABS: HEMATOCRIT 26.2 % (42.0-52.0); HEMOGLOBIN 8.8 g/dl (14.0-18.0)
[2018-01-02] MEDS: ACETAMINOPHEN 1000MG/100ML IV 100 ML IVPB (22:39)
[2018-01-03] MEDS: METOCLOPRAMIDE 10 MG INJ IV ×4 (00:08→17:16)
[2018-01-03] MEDS: ACCU-CHEK XX ×6 (01:00→21:09)
[2018-01-03 01:01] LABS: HEMATOCRIT 25.1 % (42.0-52.0); HEMOGLOBIN 8.4 g/dl (14.0-18.0)
[2018-01-03] MEDS: ALBUTEROL/IPRATROPIUM (NEB) 3 ML AMP HHN ×4 (01:12→19:41)
[2018-01-03] MEDS: ACETYLCYSTEINE 20% 4 ML VIAL NEB ×4 (01:12→19:41)
[2018-01-03] MEDS: TPN 1,000 ML IV ×2 (01:31→17:16)
[2018-01-03 05:28] LABS: ADD MAN DIFF? NO
[2018-01-03 05:30] LABS: WHITE BLOOD COUNT 14.7 10^3/ul (4.8-10.8)
[2018-01-03 05:30] LABS: ABNORMAL IP MESSAGE 1; BASOPHILS % 0.2 % (0.0-2.0); EOSINOPHILS % 0.1 % (0.0-7.0); HEMATOCRIT 25.8 % (42.0-52.0); HEMOGLOBIN 8.5 g/dl (14.0-18.0); LYMPHOCYTES # 0.5 10^3/ul (0.8-2.9); LYMPHOCYTES % 3.3 % (15.0-51.0); MEAN CORPUSCULAR HEMOGLOBIN 28.5 pg (29.0-33.0); MEAN CORPUSCULAR HGB CONC 32.9 g/dl (32.0-37.0); MEAN CORPUSCULAR VOLUME 86.6 fl (82.0-101.0); MEAN PLATELET VOLUME 10.5 fl (7.4-10.4); MONOCYTE # 1.5 10^3/ul (0.3-0.9); MONOCYTES % 10.3 % (0.0-11.0); NEUTROPHILS % 81.3 % (39.0-77.0); PLATELET COUNT 238 10^3/UL (140-415); POSITIVE DIFF @See below; RED BLOOD COUNT 2.98 10^6/ul (4.70-6.10); RED CELL DISTRIBUTION WIDTH 15.9 % (11.5-14.5)
[2018-01-03] MEDS: PANTOPRAZOLE 40 MG INJ IV ×2 (05:37→17:16)
[2018-01-03 06:04] LABS: ANION GAP 11 (8-16); BLOOD UREA NITROGEN 34 mg/dl (7-20); CALCIUM 8.3 mg/dl (8.4-10.2); CARBON DIOXIDE 27 mmol/L (21-31); CHLORIDE 111 mmol/L (97-110); CREATININE 1.57 mg/dl (0.61-1.24); GLUCOSE 98 mg/dl (70-220); MAGNESIUM 2.1 mg/dl (1.7-2.5); PHOSPHORUS 2.4 mg/dl (2.5-4.9); POTASSIUM 3.4 mmol/L (3.5-5.1); SODIUM 146 mmol/L (135-144)
[2018-01-03] MEDS: MEROPENEM 500MG/50 ML (PMX) 50 ML IVPB ×2 (09:15→21:08)
[2018-01-03] MEDS: POTASSIUM PHOSPHATE 30 MM in SOD CHLORIDE 0.9% 250 ML IVPB (11:57)
[2018-01-03] MEDS: hydrALAzine 20 MG INJ IV (12:05)
[2018-01-03] MEDS: LABETALOL HCL 20MG INJ IV (14:00)
[2018-01-03] MEDS: morphine 2 MG INJ IV ×2 (14:10→21:09)
[2018-01-03] MEDS ORDERED: DEXTROSE 50% 50 ML SYRINGE IV ×2 (20:00)
[2018-01-03] MEDS ORDERED: GLUCAGON 1 MG INJ IM (20:00)
[2018-01-03] MEDS ORDERED: GLUCOSE GEL 15 GRAM TUBE PO ×2 (20:00)
[2018-01-03] MEDS ORDERED: GLUCOSE GEL 15 GRAM TUBE BUCCAL (20:00)
[2018-01-04] MEDS: METOCLOPRAMIDE 10 MG INJ IV ×2 (00:38→06:11)
[2018-01-04] MEDS: ACCU-CHEK XX ×4 (00:39→17:43)
[2018-01-04] MEDS: ALBUTEROL/IPRATROPIUM (NEB) 3 ML AMP HHN ×4 (01:33→19:29)
[2018-01-04] MEDS: ACETYLCYSTEINE 20% 4 ML VIAL NEB ×2 (01:33→07:50)
[2018-01-04] MEDS: LORAZEPAM 2 MG INJ IV (04:26)
[2018-01-04 05:22] LABS: ADD MAN DIFF? NO
[2018-01-04 05:24] LABS: WHITE BLOOD COUNT 14.8 10^3/ul (4.8-10.8)
[2018-01-04 05:24] LABS: ABNORMAL IP MESSAGE 1; BASOPHILS % 0.2 % (0.0-2.0); EOSINOPHILS % 0.2 % (0.0-7.0); HEMATOCRIT 27.5 % (42.0-52.0); HEMOGLOBIN 8.9 g/dl (14.0-18.0); LYMPHOCYTES # 0.6 10^3/ul (0.8-2.9); LYMPHOCYTES % 4.1 % (15.0-51.0); MEAN CORPUSCULAR HEMOGLOBIN 28.3 pg (29.0-33.0); MEAN CORPUSCULAR HGB CONC 32.4 g/dl (32.0-37.0); MEAN CORPUSCULAR VOLUME 87.6 fl (82.0-101.0); MEAN PLATELET VOLUME 10.6 fl (7.4-10.4); MONOCYTE # 1.6 10^3/ul (0.3-0.9); NEUTROPHIL # 11.8 10^3/ul (1.6-7.5); NEUTROPHILS % 79.3 % (39.0-77.0); PLATELET COUNT 282 10^3/UL (140-415); POSITIVE DIFF @See below; RED BLOOD COUNT 3.14 10^6/ul (4.70-6.10); RED CELL DISTRIBUTION WIDTH 16.9 % (11.5-14.5)
[2018-01-04 05:57] LABS: ANION GAP 12 (8-16); BLOOD UREA NITROGEN 39 mg/dl (7-20); CALCIUM 8.3 mg/dl (8.4-10.2); CARBON DIOXIDE 29 mmol/L (21-31); CHLORIDE 110 mmol/L (97-110); CREATININE 1.46 mg/dl (0.61-1.24); GLUCOSE 92 mg/dl (70-220); MAGNESIUM 2.1 mg/dl (1.7-2.5); PHOSPHORUS 3.7 mg/dl (2.5-4.9); POTASSIUM 4.1 mmol/L (3.5-5.1); SODIUM 147 mmol/L (135-144)
[2018-01-04] MEDS: PANTOPRAZOLE 40 MG INJ IV ×2 (06:11→17:27)
[2018-01-04] MEDS: hydrALAzine 20 MG INJ IV (10:15)
[2018-01-04] MEDS: MEROPENEM 500MG/50 ML (PMX) 50 ML IVPB ×2 (10:16→20:38)
[2018-01-04] MEDS: FUROSEMIDE 20 MG INJ IV (10:16)
[2018-01-04] MEDS: ENOXAPARIN 30 MG/0.3 ML SYG SC (10:18)
[2018-01-04] MEDS: TPN 1,000 ML IV (10:19)
[2018-01-04] MEDS: morphine 2 MG INJ IV (15:14)
[2018-01-04] MEDS ORDERED: BISACODYL 10 MG SUPP PR (15:30)
[2018-01-04] MEDS: FAT EMULSION 20% 250 ML IV (17:27)
[2018-01-04] MEDS: BISACODYL 10 MG SUPP PR (20:39)
[2018-01-04] MEDS: ONDANSETRON 4 MG INJ IV (20:50)
[2018-01-05] MEDS: ACCU-CHEK XX ×4 (00:30→18:40)
[2018-01-05] MEDS: ALBUTEROL/IPRATROPIUM (NEB) 3 ML AMP HHN ×4 (02:05→19:31)
[2018-01-05] MEDS: TPN 1,000 ML IV ×2 (02:20→19:56)
[2018-01-05 05:39] LABS: ABNORMAL IP MESSAGE 1; HEMATOCRIT 27.8 % (42.0-52.0); HEMOGLOBIN 8.8 g/dl (14.0-18.0); MEAN CORPUSCULAR HEMOGLOBIN 28.5 pg (29.0-33.0); MEAN CORPUSCULAR HGB CONC 31.7 g/dl (32.0-37.0); MEAN PLATELET VOLUME 10.8 fl (7.4-10.4); PLATELET COUNT 331 10^3/UL (140-415); POSITIVE DIFF @See below; RED BLOOD COUNT 3.09 10^6/ul (4.70-6.10); RED CELL DISTRIBUTION WIDTH 16.8 % (11.5-14.5)
[2018-01-05 05:39] LABS: WHITE BLOOD COUNT 9.1 10^3/ul (4.8-10.8)
[2018-01-05 05:53] LABS: ADD MAN DIFF? YES
[2018-01-05 06:03] LABS: ANION GAP 10 (8-16); BLOOD UREA NITROGEN 44 mg/dl (7-20); CALCIUM 8.3 mg/dl (8.4-10.2); CARBON DIOXIDE 31 mmol/L (21-31); CHLORIDE 109 mmol/L (97-110); CREATININE 1.57 mg/dl (0.61-1.24); GLUCOSE 101 mg/dl (70-220); MAGNESIUM 2.1 mg/dl (1.7-2.5); PHOSPHORUS 3.3 mg/dl (2.5-4.9); POTASSIUM 3.9 mmol/L (3.5-5.1); SODIUM 146 mmol/L (135-144)
[2018-01-05] MEDS: PANTOPRAZOLE 40 MG INJ IV ×2 (06:22→18:39)
[2018-01-05] MEDS: MEROPENEM 500MG/50 ML (PMX) 50 ML IVPB ×2 (09:10→20:55)
[2018-01-05] MEDS: ENOXAPARIN 30 MG/0.3 ML SYG SC (09:12)
[2018-01-05 10:11] LABS: ANISOCYTOSIS 1+ (0-0); BAND NEUTROPHILS #M 1.2 10^3/ul (0.0-0.6); BAND NEUTROPHILS % (M) 14 % (0-4); LYMPHOCYTES #M 0.6 10^3/ul (0.8-2.9); LYMPHOCYTES % (M) 7 % (15-51); MONOCYTE #M 0.9 10^3/ul (0.3-0.9); MONOCYTES % (M) 10 % (0-11); MYELOCYTES #M 0.1 10^3/ul (0.0-0.0); MYELOCYTES % (M) 2 % (0-0); PLATELET ESTIMATE NORMAL; POIKILOCYTOSIS 1+ (0-0); REACTIVE LYMPHOCYTES #M 0.1 10^3/ul (0.0-0.0); REACTIVE LYMPHOCYTES% (M) 2 % (0-0); SEGMENTED NEUTROPHILS (M) % 65 % (39-77); SMUDGE%M 22 % (0-0)
[2018-01-05] MEDS: hydrALAzine 20 MG INJ IV (14:25)
[2018-01-05] MEDS: ALTEPLASE (CATHFLO) 2 MG INJ CATHETER (14:57)
[2018-01-05] MEDS: BISACODYL 10 MG SUPP PR (19:56)
[2018-01-06] MEDS: ALBUTEROL/IPRATROPIUM (NEB) 3 ML AMP HHN ×4 (01:53→20:07)
[2018-01-06] MEDS: ONDANSETRON 4 MG INJ IV ×3 (04:53→20:53)
[2018-01-06 05:10] LABS: ADD MAN DIFF? NO
[2018-01-06 05:15] LABS: WHITE BLOOD COUNT 9.3 10^3/ul (4.8-10.8)
[2018-01-06 05:15] LABS: ABNORMAL IP MESSAGE 1; BASOPHILS % 0.2 % (0.0-2.0); EOSINOPHILS % 0.3 % (0.0-7.0); HEMATOCRIT 27.5 % (42.0-52.0); HEMOGLOBIN 8.8 g/dl (14.0-18.0); LYMPHOCYTES # 0.6 10^3/ul (0.8-2.9); LYMPHOCYTES % 6.1 % (15.0-51.0); MEAN CORPUSCULAR HEMOGLOBIN 28.6 pg (29.0-33.0); MEAN CORPUSCULAR VOLUME 89.3 fl (82.0-101.0); MEAN PLATELET VOLUME 10.8 fl (7.4-10.4); MONOCYTE # 1.3 10^3/ul (0.3-0.9); MONOCYTES % 13.9 % (0.0-11.0); NEUTROPHILS % 74.9 % (39.0-77.0); PLATELET COUNT 372 10^3/UL (140-415); POSITIVE DIFF @See below; RED BLOOD COUNT 3.08 10^6/ul (4.70-6.10)
[2018-01-06 05:42] LABS: ANION GAP 10 (8-16); BLOOD UREA NITROGEN 47 mg/dl (7-20); CALCIUM 8.7 mg/dl (8.4-10.2); CARBON DIOXIDE 29 mmol/L (21-31); CHLORIDE 109 mmol/L (97-110); CREATININE 1.62 mg/dl (0.61-1.24); GLUCOSE 93 mg/dl (70-220); MAGNESIUM 2.2 mg/dl (1.7-2.5); PHOSPHORUS 3.4 mg/dl (2.5-4.9); POTASSIUM 4.2 mmol/L (3.5-5.1); SODIUM 144 mmol/L (135-144)
[2018-01-06] MEDS: PANTOPRAZOLE 40 MG INJ IV ×2 (06:07→17:36)
[2018-01-06] MEDS: ACCU-CHEK XX ×4 (06:16→18:00)
[2018-01-06 07:58] LABS: ANISOCYTOSIS 1+ (0-0); BAND NEUTROPHILS #M 1.7 10^3/ul (0.0-0.6); BAND NEUTROPHILS % (M) 19 % (0-4); BURR CELLS 1+ (0-0); GIANT THROMBO% (M) 2 % (0-0); LYMPHOCYTES #M 0.4 10^3/ul (0.8-2.9); LYMPHOCYTES % (M) 5 % (15-51); MICROCYTOSIS 1+ (0-0); MONOCYTE #M 1.1 10^3/ul (0.3-0.9); MONOCYTES % (M) 12 % (0-11); MYELOCYTES % (M) 1 % (0-0); PLATELET ESTIMATE NORMAL; POLYCHROMASIA 2+ (0-0); REACTIVE LYMPHOCYTES% (M) 1 % (0-0); SEG NEUT #M 5.9 10^3/ul (1.6-7.5); SEGMENTED NEUTROPHILS (M) % 62 % (39-77); SMUDGE%M 5 % (0-0)
[2018-01-06] MEDS: MEROPENEM 500MG/50 ML (PMX) 50 ML IVPB ×2 (09:31→20:47)
[2018-01-06] MEDS: ENOXAPARIN 30 MG/0.3 ML SYG SC (10:21)
[2018-01-06] MEDS: TPN 1,000 ML IV (11:59)
[2018-01-06] MEDS: FAT EMULSION 20% 250 ML IV (17:36)
[2018-01-06] MEDS: CASPOFUNGIN 70 MG in SOD CHLORIDE 0.9% 250 ML IVPB (17:36)
[2018-01-07] MEDS: ALBUTEROL/IPRATROPIUM (NEB) 3 ML AMP HHN ×5 (01:13→20:21)
[2018-01-07] MEDS: ONDANSETRON 4 MG INJ IV (02:38)
[2018-01-07] MEDS: LORAZEPAM 2 MG INJ IV (03:52)
[2018-01-07] MEDS: TPN 1,000 ML IV ×2 (03:59→20:10)
[2018-01-07 05:23] LABS: ABNORMAL IP MESSAGE 1; HEMATOCRIT 27.2 % (42.0-52.0); HEMOGLOBIN 8.7 g/dl (14.0-18.0); MEAN CORPUSCULAR HEMOGLOBIN 28.9 pg (29.0-33.0); MEAN CORPUSCULAR VOLUME 90.4 fl (82.0-101.0); MEAN PLATELET VOLUME 10.9 fl (7.4-10.4); PLATELET COUNT 362 10^3/UL (140-415); POSITIVE DIFF @See below; RED BLOOD COUNT 3.01 10^6/ul (4.70-6.10); RED CELL DISTRIBUTION WIDTH 17.1 % (11.5-14.5)
[2018-01-07 05:23] LABS: WHITE BLOOD COUNT 12.6 10^3/ul (4.8-10.8)
[2018-01-07 05:34] LABS: ADD MAN DIFF? YES
[2018-01-07 05:47] LABS: ANION GAP 9 (8-16); BLOOD UREA NITROGEN 46 mg/dl (7-20); CALCIUM 8.3 mg/dl (8.4-10.2); CARBON DIOXIDE 29 mmol/L (21-31); CHLORIDE 109 mmol/L (97-110); CREATININE 1.46 mg/dl (0.61-1.24); GLUCOSE 101 mg/dl (70-220); MAGNESIUM 2.2 mg/dl (1.7-2.5); PHOSPHORUS 3.2 mg/dl (2.5-4.9); POTASSIUM 4.2 mmol/L (3.5-5.1); SODIUM 143 mmol/L (135-144)
[2018-01-07] MEDS: ACCU-CHEK XX ×4 (06:00→18:00)
[2018-01-07] MEDS: PANTOPRAZOLE 40 MG INJ IV ×2 (06:18→17:45)
[2018-01-07 07:08] LABS: ANISOCYTOSIS 1+ (0-0); BAND NEUTROPHILS #M 2.1 10^3/ul (0.0-0.6); BAND NEUTROPHILS % (M) 17 % (0-4); GIANT THROMBO% (M) 3 % (0-0); LYMPHOCYTES #M 0.2 10^3/ul (0.8-2.9); LYMPHOCYTES % (M) 2 % (15-51); MONOCYTE #M 0.7 10^3/ul (0.3-0.9); MONOCYTES % (M) 6 % (0-11); PLATELET ESTIMATE NORMAL; POIKILOCYTOSIS 1+ (0-0); SEG NEUT #M 9.7 10^3/ul (1.6-7.5); SEGMENTED NEUTROPHILS (M) % 75 % (39-77); SMUDGE%M 9 % (0-0)
[2018-01-07] MEDS: MEROPENEM 500MG/50 ML (PMX) 50 ML IVPB ×2 (08:39→20:51)
[2018-01-07] MEDS: ENOXAPARIN 30 MG/0.3 ML SYG SC (08:50)
[2018-01-07] MEDS: CASPOFUNGIN 50 MG in SOD CHLORIDE 0.9% 250 ML IVPB (17:45)
[2018-01-08] MEDS: ALBUTEROL/IPRATROPIUM (NEB) 3 ML AMP HHN ×2 (02:39→08:37)
[2018-01-08 04:16] LABS: ADD MAN DIFF? NO
[2018-01-08 04:31] LABS: BASOPHILS % 0.1 % (0.0-2.0); EOSINOPHILS % 0.1 % (0.0-7.0); HEMATOCRIT 26.5 % (42.0-52.0); HEMOGLOBIN 8.3 g/dl (14.0-18.0); LYMPHOCYTES # 0.7 10^3/ul (0.8-2.9); LYMPHOCYTES % 4.9 % (15.0-51.0); MEAN CORPUSCULAR HEMOGLOBIN 28.3 pg (29.0-33.0); MEAN CORPUSCULAR HGB CONC 31.3 g/dl (32.0-37.0); MEAN CORPUSCULAR VOLUME 90.4 fl (82.0-101.0); MEAN PLATELET VOLUME 10.9 fl (7.4-10.4); MONOCYTE # 0.8 10^3/ul (0.3-0.9); MONOCYTES % 5.9 % (0.0-11.0); NEUTROPHIL # 12.2 10^3/ul (1.6-7.5); NEUTROPHILS % 87.3 % (39.0-77.0); PLATELET COUNT 338 10^3/UL (140-415); RED BLOOD COUNT 2.93 10^6/ul (4.70-6.10); RED CELL DISTRIBUTION WIDTH 17.2 % (11.5-14.5)
[2018-01-08 04:59] LABS: ALANINE AMINOTRANSFERASE 49 IU/L (13-69); ALBUMIN 2.6 g/dl (3.3-4.9); ALBUMIN/GLOBULIN RATIO 0.96; ALKALINE PHOSPHATASE 229 IU/L (42-121); ANION GAP 9 (8-16); ASPARTATE AMINO TRANSFERASE 35 IU/L (15-46); BILIRUBIN,INDIRECT 0.4 mg/dl (0-1.1); BILIRUBIN,TOTAL 0.4 mg/dl (0.2-1.3); BLOOD UREA NITROGEN 42 mg/dl (7-20); CALCIUM 8.4 mg/dl (8.4-10.2); CARBON DIOXIDE 28 mmol/L (21-31); CHLORIDE 110 mmol/L (97-110); CREATININE 1.41 mg/dl (0.61-1.24); GLUCOSE 86 mg/dl (70-220); POTASSIUM 4.8 mmol/L (3.5-5.1); SODIUM 142 mmol/L (135-144); TOTAL PROTEIN 5.3 g/dl (6.1-8.1)
[2018-01-08 05:00] LABS: MAGNESIUM 2.2 mg/dl (1.7-2.5)
[2018-01-08 05:00] LABS: PHOSPHORUS 3.6 mg/dl (2.5-4.9)
[2018-01-08 05:02] LABS: PREALBUMIN 18.5 mg/dl (17.6-36.0)
[2018-01-08] MEDS: PANTOPRAZOLE 40 MG INJ IV ×2 (05:57→17:06)
[2018-01-08] MEDS: ACCU-CHEK XX ×4 (06:00→17:09)
[2018-01-08] MEDS: morphine 2 MG INJ IV (07:54)
[2018-01-08] MEDS: MEROPENEM 500MG/50 ML (PMX) 50 ML IVPB ×2 (09:55→20:33)
[2018-01-08] MEDS: ENOXAPARIN 30 MG/0.3 ML SYG SC (09:56)
[2018-01-08] MEDS: TPN 1,000 ML IV (15:04)
[2018-01-08] MEDS: CASPOFUNGIN 50 MG in SOD CHLORIDE 0.9% 250 ML IVPB (17:06)
[2018-01-08] MEDS: FAT EMULSION 20% 250 ML IV (17:06)
[2018-01-08] MEDS: ALBUTEROL HFA 8 GM INHALER INH (19:49)
[2018-01-08] MEDS: ONDANSETRON 4 MG INJ IV (21:58)
[2018-01-09] MEDS: ALBUTEROL HFA 8 GM INHALER INH ×4 (01:36→20:00)
[2018-01-09] MEDS: PANTOPRAZOLE 40 MG INJ IV ×2 (05:59→19:35)
[2018-01-09] MEDS: ACCU-CHEK XX ×5 (05:59→23:31)
[2018-01-09] MEDS: TPN 1,000 ML IV ×3 (06:31→23:27)
[2018-01-09 07:15] LABS: ADD MAN DIFF? NO
[2018-01-09 07:19] LABS: BASOPHILS % 0.1 % (0.0-2.0); EOSINOPHILS % 0.1 % (0.0-7.0); HEMATOCRIT 26.4 % (42.0-52.0); HEMOGLOBIN 8.2 g/dl (14.0-18.0); LYMPHOCYTES # 0.7 10^3/ul (0.8-2.9); LYMPHOCYTES % 5.2 % (15.0-51.0); MEAN CORPUSCULAR HEMOGLOBIN 28.4 pg (29.0-33.0); MEAN CORPUSCULAR HGB CONC 31.1 g/dl (32.0-37.0); MEAN CORPUSCULAR VOLUME 91.3 fl (82.0-101.0); MEAN PLATELET VOLUME 10.9 fl (7.4-10.4); MONOCYTE # 0.8 10^3/ul (0.3-0.9); MONOCYTES % 6.3 % (0.0-11.0); NEUTROPHIL # 11.2 10^3/ul (1.6-7.5); NEUTROPHILS % 86.4 % (39.0-77.0); PLATELET COUNT 327 10^3/UL (140-415); RED BLOOD COUNT 2.89 10^6/ul (4.70-6.10); RED CELL DISTRIBUTION WIDTH 17.2 % (11.5-14.5)
[2018-01-09 07:19] LABS: WHITE BLOOD COUNT 12.9 10^3/ul (4.8-10.8)
[2018-01-09 07:58] LABS: BLOOD UREA NITROGEN 41 mg/dl (7-20); CALCIUM 8.7 mg/dl (8.4-10.2); CARBON DIOXIDE 27 mmol/L (21-31); CREATININE 1.36 mg/dl (0.61-1.24); GLUCOSE 92 mg/dl (70-220); MAGNESIUM 2.1 mg/dl (1.7-2.5); PHOSPHORUS 3.8 mg/dl (2.5-4.9)
[2018-01-09 08:09] LABS: ANION GAP 11 (8-16); CHLORIDE 106 mmol/L (97-110); POTASSIUM 4.6 mmol/L (3.5-5.1); SODIUM 139 mmol/L (135-144)
[2018-01-09] MEDS: MEROPENEM 500MG/50 ML (PMX) 50 ML IVPB (09:27)
[2018-01-09] MEDS: ENOXAPARIN 30 MG/0.3 ML SYG SC (09:39)
[2018-01-09] MEDS: BISACODYL 10 MG SUPP PR (18:55)
[2018-01-10] MEDS: ALBUTEROL HFA 8 GM INHALER INH ×4 (01:53→20:00)
[2018-01-10] MEDS: ONDANSETRON 4 MG INJ IV ×2 (03:19→16:09)
[2018-01-10] MEDS: PANTOPRAZOLE 40 MG INJ IV ×2 (05:54→18:16)
[2018-01-10] MEDS: ACCU-CHEK XX ×4 (05:54→23:46)
[2018-01-10] MEDS: hydrALAzine 20 MG INJ IV (08:57)
[2018-01-10] MEDS: BALSAM PERU/CASTOR OIL 60 GM TUBE TOP (09:00)
[2018-01-10] MEDS: ENOXAPARIN 30 MG/0.3 ML SYG SC (09:01)
[2018-01-10 09:21] LABS: ADD MAN DIFF? NO
[2018-01-10 09:37] LABS: WHITE BLOOD COUNT 11.1 10^3/ul (4.8-10.8)
[2018-01-10 09:37] LABS: BASOPHILS % 0.1 % (0.0-2.0); EOSINOPHILS % 0.2 % (0.0-7.0); HEMATOCRIT 27.7 % (42.0-52.0); HEMOGLOBIN 8.6 g/dl (14.0-18.0); LYMPHOCYTES # 0.8 10^3/ul (0.8-2.9); LYMPHOCYTES % 6.8 % (15.0-51.0); MEAN CORPUSCULAR VOLUME 90.2 fl (82.0-101.0); MEAN PLATELET VOLUME 11.4 fl (7.4-10.4); MONOCYTE # 0.8 10^3/ul (0.3-0.9); MONOCYTES % 7.1 % (0.0-11.0); NEUTROPHIL # 9.3 10^3/ul (1.6-7.5); NEUTROPHILS % 84.4 % (39.0-77.0); PLATELET COUNT 297 10^3/UL (140-415); RED BLOOD COUNT 3.07 10^6/ul (4.70-6.10); RED CELL DISTRIBUTION WIDTH 16.7 % (11.5-14.5)
[2018-01-10 10:34] LABS: ANION GAP 11 (8-16); BLOOD UREA NITROGEN 37 mg/dl (7-20); CALCIUM 8.4 mg/dl (8.4-10.2); CARBON DIOXIDE 26 mmol/L (21-31); CHLORIDE 105 mmol/L (97-110); CREATININE 1.31 mg/dl (0.61-1.24); GLUCOSE 81 mg/dl (70-220); PHOSPHORUS 3.6 mg/dl (2.5-4.9); POTASSIUM 4.7 mmol/L (3.5-5.1); SODIUM 137 mmol/L (135-144)
[2018-01-10] MEDS: TPN 1,000 ML IV (16:35)
[2018-01-10] MEDS: FAT EMULSION 20% 250 ML IV (18:11)
[2018-01-10] MEDS: SOD CHLORIDE 0.9% 1,000 ML IV (21:10)
[2018-01-10 21:16] LABS: ABNORMAL IP MESSAGE 1; MEAN CORPUSCULAR HEMOGLOBIN 28.8 pg (29.0-33.0); MEAN CORPUSCULAR HGB CONC 31.2 g/dl (32.0-37.0); MEAN CORPUSCULAR VOLUME 92.4 fl (82.0-101.0); MEAN PLATELET VOLUME 10.7 fl (7.4-10.4); PLATELET COUNT 300 10^3/UL (140-415); POSITIVE DIFF @See below; RED BLOOD COUNT 1.84 10^6/ul (4.70-6.10); RED CELL DISTRIBUTION WIDTH 16.7 % (11.5-14.5)
[2018-01-10 21:27] LABS: ADD MAN DIFF? YES; HEMOGLOBIN 5.3 g/dl (14.0-18.0)
[2018-01-10 21:34] LABS: ANION GAP 11 (8-16)
[2018-01-10 21:36] LABS: BLOOD UREA NITROGEN 62 mg/dl (7-20); CALCIUM 7.6 mg/dl (8.4-10.2); CARBON DIOXIDE 22 mmol/L (21-31); CHLORIDE 110 mmol/L (97-110); CREATININE 1.57 mg/dl (0.61-1.24); GLUCOSE 91 mg/dl (70-220); POTASSIUM 5.2 mmol/L (3.5-5.1); SODIUM 138 mmol/L (135-144)
[2018-01-10 22:17] LABS: ANISOCYTOSIS 1+ (0-0); BAND NEUTROPHILS #M 0.4 10^3/ul (0.0-0.6); BAND NEUTROPHILS % (M) 3 % (0-4); GIANT THROMBO% (M) 1 % (0-0); HYPOCHROMASIA 2+ (0-0); LYMPHOCYTES #M 0.5 10^3/ul (0.8-2.9); LYMPHOCYTES % (M) 4 % (15-51); MONOCYTE #M 0.1 10^3/ul (0.3-0.9); MONOCYTES % (M) 1 % (0-11); PLATELET ESTIMATE NORMAL; POLYCHROMASIA 3+ (0-0); SEG NEUT #M 12.9 10^3/ul (1.6-7.5); SEGMENTED NEUTROPHILS (M) % 92 % (39-77); SMUDGE%M 1 % (0-0)
[2018-01-10] MEDS: NORepinephrine 8MG/250 ML (PMX 250 ML IV (22:37)
[2018-01-11] MEDS: PANTOPRAZOLE IV 80 MG in SOD CHLORIDE 0.9% 100 ML IV ×2 (00:27→09:58)
[2018-01-11] MEDS: PANTOPRAZOLE IV 80 MG in SOD CHLORIDE 0.9% 100 ML IVPB (00:27)
[2018-01-11] MEDS: ONDANSETRON 4 MG INJ IV (00:32)
[2018-01-11 00:47] LABS: IMMEDIATE SPIN CROSSMATCH 1 4
[2018-01-11] MEDS: ALBUTEROL HFA 8 GM INHALER INH ×4 (01:29→19:42)
[2018-01-11] MEDS: morphine 2 MG INJ IV (02:52)
[2018-01-11 05:50] LABS: ADD MAN DIFF? NO
[2018-01-11] MEDS: ACCU-CHEK XX ×3 (05:56→18:00)
[2018-01-11 06:01] LABS: WHITE BLOOD COUNT 16.1 10^3/ul (4.8-10.8)
[2018-01-11 06:01] LABS: BASOPHILS % 0.2 % (0.0-2.0); EOSINOPHILS % 0.1 % (0.0-7.0); HEMATOCRIT 22.7 % (42.0-52.0); HEMOGLOBIN 7.6 g/dl (14.0-18.0); MEAN CORPUSCULAR HGB CONC 33.5 g/dl (32.0-37.0); MEAN CORPUSCULAR VOLUME 89.7 fl (82.0-101.0); MEAN PLATELET VOLUME 11.6 fl (7.4-10.4); MONOCYTE # 1.2 10^3/ul (0.3-0.9); MONOCYTES % 7.6 % (0.0-11.0); NEUTROPHIL # 13.3 10^3/ul (1.6-7.5); NEUTROPHILS % 82.4 % (39.0-77.0); PLATELET COUNT 341 10^3/UL (140-415); RED BLOOD COUNT 2.53 10^6/ul (4.70-6.10); RED CELL DISTRIBUTION WIDTH 15.6 % (11.5-14.5)
[2018-01-11 06:25] LABS: ANION GAP 11 (8-16); BLOOD UREA NITROGEN 67 mg/dl (7-20); CALCIUM 7.7 mg/dl (8.4-10.2); CARBON DIOXIDE 23 mmol/L (21-31); CHLORIDE 111 mmol/L (97-110); CREATININE 1.47 mg/dl (0.61-1.24); GLUCOSE 100 mg/dl (70-220); MAGNESIUM 1.9 mg/dl (1.7-2.5); PHOSPHORUS 3.6 mg/dl (2.5-4.9); POTASSIUM 4.7 mmol/L (3.5-5.1); SODIUM 140 mmol/L (135-144)
[2018-01-11] MEDS: BISACODYL 10 MG SUPP PR (09:00)
[2018-01-11] MEDS: ENOXAPARIN 30 MG/0.3 ML SYG SC (09:00)
[2018-01-11] MEDS: TPN 1,000 ML IV (09:03)
[2018-01-11] MEDS: BALSAM PERU/CASTOR OIL 60 GM TUBE TOP (09:58)
[2018-01-11] MEDS: PANTOPRAZOLE 40 MG INJ IV (18:51)
[2018-01-11 22:25] LABS: HEMATOCRIT 21.3 % (42.0-52.0)
[2018-01-11 22:30] LABS: HEMOGLOBIN 6.9 g/dl (14.0-18.0)
[2018-01-12] MEDS: ACCU-CHEK XX ×4 (00:34→17:39)
[2018-01-12] MEDS: ALBUTEROL HFA 8 GM INHALER INH ×4 (01:32→19:21)
[2018-01-12] MEDS: TPN 1,000 ML IV ×2 (01:56→17:32)
[2018-01-12 05:28] LABS: ADD MAN DIFF? NO
[2018-01-12 05:34] LABS: BASOPHILS % 0.3 % (0.0-2.0); EOSINOPHILS # 0.1 10^3/ul (0.0-0.5); EOSINOPHILS % 0.7 % (0.0-7.0); HEMATOCRIT 25.1 % (42.0-52.0); HEMOGLOBIN 8.3 g/dl (14.0-18.0); LYMPHOCYTES # 1.1 10^3/ul (0.8-2.9); LYMPHOCYTES % 9.3 % (15.0-51.0); MEAN CORPUSCULAR HGB CONC 33.1 g/dl (32.0-37.0); MEAN CORPUSCULAR VOLUME 90.6 fl (82.0-101.0); MEAN PLATELET VOLUME 11.2 fl (7.4-10.4); MONOCYTES % 9.1 % (0.0-11.0); NEUTROPHIL # 8.9 10^3/ul (1.6-7.5); NEUTROPHILS % 77.6 % (39.0-77.0); PLATELET COUNT 242 10^3/UL (140-415); RED BLOOD COUNT 2.77 10^6/ul (4.70-6.10); RED CELL DISTRIBUTION WIDTH 15.5 % (11.5-14.5)
[2018-01-12 05:34] LABS: WHITE BLOOD COUNT 11.5 10^3/ul (4.8-10.8)
[2018-01-12 06:03] LABS: TRIGLYCERIDES 224 mg/dl (0-149)
[2018-01-12 06:04] LABS: ANION GAP 12 (8-16); BLOOD UREA NITROGEN 59 mg/dl (7-20); CALCIUM 8.2 mg/dl (8.4-10.2); CARBON DIOXIDE 24 mmol/L (21-31); CHLORIDE 110 mmol/L (97-110); CREATININE 1.33 mg/dl (0.61-1.24); GLUCOSE 101 mg/dl (70-220); MAGNESIUM 1.9 mg/dl (1.7-2.5); PHOSPHORUS 4.2 mg/dl (2.5-4.9); POTASSIUM 4.5 mmol/L (3.5-5.1); SODIUM 141 mmol/L (135-144)
[2018-01-12 06:05] LABS: ALANINE AMINOTRANSFERASE 53 IU/L (13-69); ALBUMIN 2.5 g/dl (3.3-4.9); ALBUMIN/GLOBULIN RATIO 0.83; ALKALINE PHOSPHATASE 228 IU/L (42-121); ANION GAP 13 (8-16); ASPARTATE AMINO TRANSFERASE 41 IU/L (15-46); BILIRUBIN,INDIRECT 0.4 mg/dl (0-1.1); BILIRUBIN,TOTAL 0.4 mg/dl (0.2-1.3); BLOOD UREA NITROGEN 58 mg/dl (7-20); CALCIUM 8.3 mg/dl (8.4-10.2); CARBON DIOXIDE 24 mmol/L (21-31); CHLORIDE 110 mmol/L (97-110); CREATININE 1.38 mg/dl (0.61-1.24); GLUCOSE 99 mg/dl (70-220); POTASSIUM 4.6 mmol/L (3.5-5.1); SODIUM 142 mmol/L (135-144); TOTAL PROTEIN 5.5 g/dl (6.1-8.1)
[2018-01-12] MEDS: PANTOPRAZOLE 40 MG INJ IV ×2 (06:28→17:32)
[2018-01-12] MEDS: BALSAM PERU/CASTOR OIL 60 GM TUBE TOP (09:19)
[2018-01-12] MEDS: FAT EMULSION 20% 250 ML IV (17:39)
[2018-01-13] MEDS: ALBUTEROL HFA 8 GM INHALER INH ×4 (01:15→19:40)
[2018-01-13] MEDS: ONDANSETRON 4 MG INJ IV ×2 (03:21→21:59)
[2018-01-13 05:17] LABS: ADD MAN DIFF? NO
[2018-01-13 05:18] LABS: BASOPHILS % 0.2 % (0.0-2.0); EOSINOPHILS # 0.1 10^3/ul (0.0-0.5); EOSINOPHILS % 0.6 % (0.0-7.0); HEMATOCRIT 23.4 % (42.0-52.0); HEMOGLOBIN 7.7 g/dl (14.0-18.0); LYMPHOCYTES # 0.9 10^3/ul (0.8-2.9); LYMPHOCYTES % 7.8 % (15.0-51.0); MEAN CORPUSCULAR HGB CONC 32.9 g/dl (32.0-37.0); MEAN CORPUSCULAR VOLUME 91.1 fl (82.0-101.0); MEAN PLATELET VOLUME 11.3 fl (7.4-10.4); MONOCYTE # 1.1 10^3/ul (0.3-0.9); MONOCYTES % 9.3 % (0.0-11.0); NEUTROPHIL # 9.6 10^3/ul (1.6-7.5); NEUTROPHILS % 79.9 % (39.0-77.0); PLATELET COUNT 244 10^3/UL (140-415); RED BLOOD COUNT 2.57 10^6/ul (4.70-6.10); RED CELL DISTRIBUTION WIDTH 15.8 % (11.5-14.5)
[2018-01-13 05:18] LABS: WHITE BLOOD COUNT 12.1 10^3/ul (4.8-10.8)
[2018-01-13] MEDS: PANTOPRAZOLE 40 MG INJ IV ×2 (05:38→18:29)
[2018-01-13 05:43] LABS: ANION GAP 10 (8-16); BLOOD UREA NITROGEN 48 mg/dl (7-20); CALCIUM 8.2 mg/dl (8.4-10.2); CARBON DIOXIDE 27 mmol/L (21-31); CHLORIDE 109 mmol/L (97-110); CREATININE 1.13 mg/dl (0.61-1.24); GLUCOSE 104 mg/dl (70-220); PHOSPHORUS 4.2 mg/dl (2.5-4.9); POTASSIUM 4.1 mmol/L (3.5-5.1); SODIUM 142 mmol/L (135-144)
[2018-01-13 05:51] LABS: TRIGLYCERIDES 278 mg/dl (0-149)
[2018-01-13] MEDS: ACCU-CHEK XX ×4 (07:47→18:07)
[2018-01-13] MEDS: TPN 1,000 ML IV (09:28)
[2018-01-13] MEDS: BALSAM PERU/CASTOR OIL 60 GM TUBE TOP (09:28)
[2018-01-14] MEDS: ALBUTEROL HFA 8 GM INHALER INH ×4 (01:03→19:38)
[2018-01-14] MEDS: TPN 1,000 ML IV ×2 (02:47→18:03)
[2018-01-14 05:12] LABS: ADD MAN DIFF? NO
[2018-01-14 05:24] LABS: WHITE BLOOD COUNT 11.9 10^3/ul (4.8-10.8)
[2018-01-14 05:24] LABS: BASOPHILS % 0.3 % (0.0-2.0); EOSINOPHILS % 0.3 % (0.0-7.0); HEMOGLOBIN 7.6 g/dl (14.0-18.0); LYMPHOCYTES # 0.9 10^3/ul (0.8-2.9); LYMPHOCYTES % 7.2 % (15.0-51.0); MEAN CORPUSCULAR HEMOGLOBIN 29.2 pg (29.0-33.0); MEAN CORPUSCULAR HGB CONC 31.7 g/dl (32.0-37.0); MEAN CORPUSCULAR VOLUME 92.3 fl (82.0-101.0); MEAN PLATELET VOLUME 11.7 fl (7.4-10.4); MONOCYTE # 1.2 10^3/ul (0.3-0.9); MONOCYTES % 9.7 % (0.0-11.0); NEUTROPHIL # 9.6 10^3/ul (1.6-7.5); NEUTROPHILS % 80.9 % (39.0-77.0); PLATELET COUNT 222 10^3/UL (140-415); RED CELL DISTRIBUTION WIDTH 15.9 % (11.5-14.5)
[2018-01-14 05:49] LABS: INR 0.97
[2018-01-14] MEDS: ACCU-CHEK XX ×4 (06:00→17:50)
[2018-01-14] MEDS: PANTOPRAZOLE 40 MG INJ IV ×2 (06:00→17:50)
[2018-01-14 06:14] LABS: PHOSPHORUS 4.3 mg/dl (2.5-4.9)
[2018-01-14 06:14] LABS: MAGNESIUM 1.9 mg/dl (1.7-2.5)
[2018-01-14 07:28] LABS: ALANINE AMINOTRANSFERASE 73 IU/L (13-69); ALBUMIN 2.7 g/dl (3.3-4.9); ALBUMIN/GLOBULIN RATIO 0.84; ALKALINE PHOSPHATASE 281 IU/L (42-121); ANION GAP 11 (8-16); ASPARTATE AMINO TRANSFERASE 52 IU/L (15-46); BILIRUBIN,INDIRECT 0.6 mg/dl (0-1.1); BILIRUBIN,TOTAL 0.6 mg/dl (0.2-1.3); BLOOD UREA NITROGEN 42 mg/dl (7-20); CALCIUM 8.4 mg/dl (8.4-10.2); CARBON DIOXIDE 29 mmol/L (21-31); CHLORIDE 106 mmol/L (97-110); CREATININE 1.19 mg/dl (0.61-1.24); GLUCOSE 95 mg/dl (70-220); SODIUM 142 mmol/L (135-144); TOTAL PROTEIN 5.9 g/dl (6.1-8.1)
[2018-01-14] MEDS: BALSAM PERU/CASTOR OIL 60 GM TUBE TOP (08:34)
[2018-01-14] MEDS: BISACODYL 10 MG SUPP PR (09:00)
[2018-01-14] MEDS: DIATR MEGLU/DIATRIZOATE SODIUM 120 ML BTL (13:35)
[2018-01-14 14:06] LABS: HEMATOCRIT 24.3 % (42.0-52.0); HEMOGLOBIN 7.8 g/dl (14.0-18.0)
[2018-01-15] MEDS: ALBUTEROL HFA 8 GM INHALER INH ×4 (01:55→19:18)
[2018-01-15 05:43] LABS: ADD MAN DIFF? NO
[2018-01-15 05:55] LABS: BASOPHILS % 0.2 % (0.0-2.0); EOSINOPHILS % 0.3 % (0.0-7.0); HEMATOCRIT 24.8 % (42.0-52.0); HEMOGLOBIN 7.8 g/dl (14.0-18.0); LYMPHOCYTES # 0.8 10^3/ul (0.8-2.9); LYMPHOCYTES % 8.2 % (15.0-51.0); MEAN CORPUSCULAR HEMOGLOBIN 29.3 pg (29.0-33.0); MEAN CORPUSCULAR HGB CONC 31.5 g/dl (32.0-37.0); MEAN CORPUSCULAR VOLUME 93.2 fl (82.0-101.0); MEAN PLATELET VOLUME 11.7 fl (7.4-10.4); MONOCYTE # 0.8 10^3/ul (0.3-0.9); MONOCYTES % 8.3 % (0.0-11.0); NEUTROPHILS % 81.6 % (39.0-77.0); PLATELET COUNT 237 10^3/UL (140-415); RED BLOOD COUNT 2.66 10^6/ul (4.70-6.10); RED CELL DISTRIBUTION WIDTH 16.2 % (11.5-14.5)
[2018-01-15 05:55] LABS: WHITE BLOOD COUNT 9.8 10^3/ul (4.8-10.8)
[2018-01-15] MEDS: PANTOPRAZOLE 40 MG INJ IV ×2 (06:00→18:08)
[2018-01-15] MEDS: ACCU-CHEK XX ×4 (06:00→18:00)
[2018-01-15 06:48] LABS: ANION GAP 10 (8-16); BLOOD UREA NITROGEN 40 mg/dl (7-20); CALCIUM 8.6 mg/dl (8.4-10.2); CARBON DIOXIDE 31 mmol/L (21-31); CHLORIDE 109 mmol/L (97-110); CREATININE 1.31 mg/dl (0.61-1.24); GLUCOSE 106 mg/dl (70-220); MAGNESIUM 2.1 mg/dl (1.7-2.5); PHOSPHORUS 4.1 mg/dl (2.5-4.9); POTASSIUM 3.4 mmol/L (3.5-5.1); SODIUM 147 mmol/L (135-144)
[2018-01-15] MEDS: BALSAM PERU/CASTOR OIL 60 GM TUBE TOP (07:54)
[2018-01-15] MEDS: POTASSIUM CHLORIDE 50 ML IVPB ×3 (09:09→11:21)
[2018-01-15] MEDS: TPN 1,000 ML IV ×2 (10:04→18:07)
[2018-01-16] MEDS: ALBUTEROL HFA 8 GM INHALER INH ×4 (01:45→20:18)
[2018-01-16] MEDS: ACCU-CHEK XX ×4 (05:58→17:44)
[2018-01-16] MEDS: PANTOPRAZOLE 40 MG INJ IV ×2 (05:58→17:43)
[2018-01-16 06:47] LABS: ADD MAN DIFF? NO
[2018-01-16 06:48] LABS: BASOPHILS % 0.2 % (0.0-2.0); EOSINOPHILS # 0.1 10^3/ul (0.0-0.5); EOSINOPHILS % 0.8 % (0.0-7.0); HEMATOCRIT 25.5 % (42.0-52.0); HEMOGLOBIN 7.9 g/dl (14.0-18.0); LYMPHOCYTES # 0.8 10^3/ul (0.8-2.9); LYMPHOCYTES % 7.4 % (15.0-51.0); MEAN CORPUSCULAR HEMOGLOBIN 29.4 pg (29.0-33.0); MEAN CORPUSCULAR VOLUME 94.8 fl (82.0-101.0); MEAN PLATELET VOLUME 11.5 fl (7.4-10.4); MONOCYTE # 0.9 10^3/ul (0.3-0.9); MONOCYTES % 8.6 % (0.0-11.0); NEUTROPHILS % 81.9 % (39.0-77.0); PLATELET COUNT 227 10^3/UL (140-415); RED BLOOD COUNT 2.69 10^6/ul (4.70-6.10); RED CELL DISTRIBUTION WIDTH 15.7 % (11.5-14.5)
[2018-01-16 07:15] LABS: ANION GAP 11 (8-16); BLOOD UREA NITROGEN 36 mg/dl (7-20); CALCIUM 8.6 mg/dl (8.4-10.2); CARBON DIOXIDE 28 mmol/L (21-31); CHLORIDE 107 mmol/L (97-110); GLUCOSE 86 mg/dl (70-220); PHOSPHORUS 3.4 mg/dl (2.5-4.9); POTASSIUM 4.1 mmol/L (3.5-5.1); SODIUM 142 mmol/L (135-144)
[2018-01-16] MEDS: BISACODYL 10 MG SUPP PR (07:49)
[2018-01-16] MEDS: BALSAM PERU/CASTOR OIL 60 GM TUBE TOP (09:50)
[2018-01-16] MEDS: TPN 1,000 ML IV ×2 (10:40→13:28)
[2018-01-17] MEDS: ALBUTEROL HFA 8 GM INHALER INH ×4 (02:00→15:10)
[2018-01-17] MEDS: ACCU-CHEK XX ×4 (06:00→17:55)
[2018-01-17] MEDS: TPN 1,000 ML IV (06:12)
[2018-01-17] MEDS: PANTOPRAZOLE 40 MG INJ IV ×2 (06:12→17:55)
[2018-01-17 07:05] LABS: ADD MAN DIFF? NO
[2018-01-17 07:08] LABS: BASOPHILS % 0.2 % (0.0-2.0); EOSINOPHILS # 0.1 10^3/ul (0.0-0.5); EOSINOPHILS % 1.3 % (0.0-7.0); HEMATOCRIT 23.4 % (42.0-52.0); HEMOGLOBIN 7.3 g/dl (14.0-18.0); LYMPHOCYTES # 0.8 10^3/ul (0.8-2.9); LYMPHOCYTES % 8.7 % (15.0-51.0); MEAN CORPUSCULAR HEMOGLOBIN 29.1 pg (29.0-33.0); MEAN CORPUSCULAR HGB CONC 31.2 g/dl (32.0-37.0); MEAN CORPUSCULAR VOLUME 93.2 fl (82.0-101.0); MEAN PLATELET VOLUME 12.2 fl (7.4-10.4); MONOCYTE # 0.7 10^3/ul (0.3-0.9); MONOCYTES % 7.7 % (0.0-11.0); NEUTROPHIL # 7.7 10^3/ul (1.6-7.5); NEUTROPHILS % 81.3 % (39.0-77.0); PLATELET COUNT 211 10^3/UL (140-415); RED BLOOD COUNT 2.51 10^6/ul (4.70-6.10); RED CELL DISTRIBUTION WIDTH 15.2 % (11.5-14.5)
[2018-01-17 07:08] LABS: WHITE BLOOD COUNT 9.4 10^3/ul (4.8-10.8)
[2018-01-17 07:32] LABS: ALANINE AMINOTRANSFERASE 60 IU/L (13-69); ALBUMIN 2.8 g/dl (3.3-4.9); ALKALINE PHOSPHATASE 245 IU/L (42-121); ASPARTATE AMINO TRANSFERASE 39 IU/L (15-46); BILIRUBIN,INDIRECT 0.4 mg/dl (0-1.1); BILIRUBIN,TOTAL 0.4 mg/dl (0.2-1.3); TOTAL PROTEIN 5.9 g/dl (6.1-8.1)
[2018-01-17 08:08] LABS: ANION GAP 11 (8-16); BLOOD UREA NITROGEN 41 mg/dl (7-20); CALCIUM 7.9 mg/dl (8.4-10.2); CARBON DIOXIDE 24 mmol/L (21-31); CHLORIDE 104 mmol/L (97-110); CREATININE 1.01 mg/dl (0.61-1.24); GLUCOSE 88 mg/dl (70-220); PHOSPHORUS 3.6 mg/dl (2.5-4.9); POTASSIUM 4.4 mmol/L (3.5-5.1); SODIUM 135 mmol/L (135-144)
[2018-01-17 08:34] LABS: PREALBUMIN 26.8 mg/dl (17.6-36.0)
[2018-01-17] MEDS: BALSAM PERU/CASTOR OIL 60 GM TUBE TOP (11:23)
[2018-01-17 12:53] LABS: IMMEDIATE SPIN CROSSMATCH 1 2
[2018-01-18] MEDS: ACCU-CHEK XX
[2018-01-18] MEDS: ALBUTEROL HFA 8 GM INHALER INH (01:28)
[2018-01-20 00:51] LABS: ALKALINE PHOSPHATASE 231 U/L (40-115); BONE ISOENZYMES 38 % (28-66); INTESTINAL ISOENZYMES 0 % (1-24); LIVER ISOENZYMES 62 % (25-69); PLACENTAL ISOENZYMES 0 % (0)
== END 2018-01-18 02:10 | DRG 981 ==
LOC: ICU 01-10 20:45 → TEL 01-15 11:35 → E/R 08:41 → ICU 12-28 19:38 → TEL 01-08 11:45 → 6WM 11:29
PROC: 0DBA8ZX Excision of Jejunum, Via Natural or Artificial Opening Endoscopic, Diagnostic (ICD-10-PCS; principal; 2017-12-31 14:40)
PROC: 0B9G8ZZ Drainage of Left Upper Lung Lobe, Via Natural or Artificial Opening Endoscopic (ICD-10-PCS; 2017-12-31 14:40)
PROC: 02HV33Z Insertion of Infusion Device into Superior Vena Cava, Percutaneous Approach (ICD-10-PCS; 2017-12-31 14:40)
PROC: 5A1955Z Respiratory Ventilation, Greater than 96 Consecutive Hours (ICD-10-PCS; 2017-12-31 14:40)
PROC: 06HY33Z Insertion of Infusion Device into Lower Vein, Percutaneous Approach (ICD-10-PCS; 2017-12-31 14:40)
PROC: 0T2BX0Z Change Drainage Device in Bladder, External Approach (ICD-10-PCS; 2017-12-31 14:40)
PROC: 30233N1 Transfusion of Nonautologous Red Blood Cells into Peripheral Vein, Percutaneous Approach (ICD-10-PCS; 2017-12-31 14:40)
DX: K56.690 Other partial intestinal obstruction (principal); G82.50 Quadriplegia, unspecified; A41.9 Sepsis, unspecified organism; R57.1 Hypovolemic shock; N17.0 Acute kidney failure with tubular necrosis; J96.21 Acute and chronic respiratory failure with hypoxia; R65.20 Severe sepsis without septic shock; E87.1 Hypo-osmolality and hyponatremia; N39.0 Urinary tract infection, site not specified; D62 Acute posthemorrhagic anemia; J95.851 Ventilator associated pneumonia; Z99.11 Dependence on respirator [ventilator] status; K92.1 Melena; J98.11 Atelectasis; R25.1 Tremor, unspecified; I10 Essential (primary) hypertension; T17.990A Other foreign object in respiratory tract, part unspecified in causing asphyxiation, initial encounter; X58.XXXA Exposure to other specified factors, initial encounter; Y92.230 Patient room in hospital as the place of occurrence of the external cause; E87.6 Hypokalemia; B96.4 Proteus (mirabilis) (morganii) as the cause of diseases classified elsewhere; B96.20 Unspecified Escherichia coli [E. coli] as the cause of diseases classified elsewhere; Z43.5 Encounter for attention to cystostomy; Z93.0 Tracheostomy status
CPT/HCPCS: 36415; 36430; 36569; 36600; 71045; 74018; 74019; 74176; 74250; 76775; 76937; 78278; 80048; 80053; 80069; 80076; 80150; 80202; 81001; 81003; 82043; 82270; 82803; 82962; 83010; 83036; 83540; 83605; 83615; 83690; 83735; 84080; 84100; 84132; 84134; 84155; 84300; 84443; 84478; 84484; 85014; 85018; 85025; 85045; 85610; 86644; 86850; 86900; 86901; 86920; 87040; 87070; 87081; 87086; 88305; 89190; 89220; 93005; 94002; 94003; 94640; 94664; 94668; 94799; 96374; 96375; 99285-25

== ENCOUNTER 2018-01-20 17:15 | Inpatient (IN) | payer MEDICARE, MEDICAID ==
[2018-01-20] MEDS ORDERED: LORAZEPAM 2 MG INJ IV (18:00)
[2018-01-20] MEDS ORDERED: ACETAMINOPHEN 325 MG TAB PO (18:00)
[2018-01-20] MEDS ORDERED: ALBUTEROL/IPRATROPIUM (NEB) 3 ML AMP HHN (18:00)
[2018-01-20] MEDS ORDERED: NACL 0.9% 3 ML SYG IV (18:00)
[2018-01-20] MEDS: DEXTROSE 5%-0.45% NACL 1,000 ML IV (18:05)
[2018-01-20 18:39] LABS: PROTIME 14.4 Sec (11.9-14.9); PT RATIO 1.1
[2018-01-20 18:40] LABS: PARTIAL THROMBOPLASTIN TIME 35.2 Sec (23.0-35.0)
[2018-01-20] MEDS: PIPER-TAZO 3.375 GM IV (PMX) 100 ML IVPB (18:49)
[2018-01-20] MEDS: ALBUTEROL/IPRATROPIUM (NEB) 3 ML AMP HHN (20:00)
[2018-01-20] MEDS: PANTOPRAZOLE 40 MG INJ IV (20:59)
[2018-01-20 21:00] LABS: ALANINE AMINOTRANSFERASE 47 IU/L (13-69); ALBUMIN 2.6 g/dl (3.3-4.9); ALKALINE PHOSPHATASE 198 IU/L (42-121); ANION GAP 16 (8-16); ASPARTATE AMINO TRANSFERASE 20 IU/L (15-46); BILIRUBIN,INDIRECT 0.5 mg/dl (0-1.1); BILIRUBIN,TOTAL 0.5 mg/dl (0.2-1.3); BLOOD UREA NITROGEN 66 mg/dl (7-20); CALCIUM 8.1 mg/dl (8.4-10.2); CARBON DIOXIDE 20 mmol/L (21-31); CHLORIDE 104 mmol/L (97-110); CREATININE 1.81 mg/dl (0.61-1.24); GLUCOSE 99 mg/dl (70-220); MAGNESIUM 1.8 mg/dl (1.7-2.5); PHOSPHORUS 5.4 mg/dl (2.5-4.9); POTASSIUM 3.8 mmol/L (3.5-5.1); SODIUM 136 mmol/L (135-144); TOTAL PROTEIN 6.3 g/dl (6.1-8.1); TRIGLYCERIDES 96 mg/dl (0-149)
[2018-01-20 21:07] LABS: PREALBUMIN 21.1 mg/dl (17.6-36.0)
[2018-01-21] MEDS: PIPER-TAZO 3.375 GM IV (PMX) 100 ML IVPB ×5 (00:33→23:55)
[2018-01-21] MEDS: DEXTROSE 5%-0.45% NACL 1,000 ML IV (00:33)
[2018-01-21 06:13] LABS: ADD MAN DIFF? NO
[2018-01-21 06:29] LABS: WHITE BLOOD COUNT 11.4 10^3/ul (4.8-10.8)
[2018-01-21 06:29] LABS: ABNORMAL IP MESSAGE 1; BASOPHILS % 0.1 % (0.0-2.0); EOSINOPHILS # 0.1 10^3/ul (0.0-0.5); EOSINOPHILS % 0.4 % (0.0-7.0); HEMOGLOBIN 9.2 g/dl (14.0-18.0); LYMPHOCYTES # 0.5 10^3/ul (0.8-2.9); MEAN CORPUSCULAR HEMOGLOBIN 29.7 pg (29.0-33.0); MEAN CORPUSCULAR HGB CONC 32.9 g/dl (32.0-37.0); MEAN CORPUSCULAR VOLUME 90.3 fl (82.0-101.0); MEAN PLATELET VOLUME 12.5 fl (7.4-10.4); MONOCYTE # 1.1 10^3/ul (0.3-0.9); NEUTROPHIL # 9.6 10^3/ul (1.6-7.5); NEUTROPHILS % 84.4 % (39.0-77.0); PLATELET COUNT 196 10^3/UL (140-415); POSITIVE DIFF @See below; RED CELL DISTRIBUTION WIDTH 14.9 % (11.5-14.5)
[2018-01-21 06:48] LABS: PHOSPHORUS 3.9 mg/dl (2.5-4.9)
[2018-01-21 06:52] LABS: ALANINE AMINOTRANSFERASE 31 IU/L (13-69); ALBUMIN 2.8 g/dl (3.3-4.9); ALBUMIN/GLOBULIN RATIO 0.93; ALKALINE PHOSPHATASE 171 IU/L (42-121); ANION GAP 12 (8-16); ASPARTATE AMINO TRANSFERASE 17 IU/L (15-46); BILIRUBIN,INDIRECT 0.5 mg/dl (0-1.1); BILIRUBIN,TOTAL 0.5 mg/dl (0.2-1.3); BLOOD UREA NITROGEN 55 mg/dl (7-20); CALCIUM 7.5 mg/dl (8.4-10.2); CARBON DIOXIDE 22 mmol/L (21-31); CHLORIDE 107 mmol/L (97-110); CREATININE 1.54 mg/dl (0.61-1.24); GLUCOSE 93 mg/dl (70-220); MAGNESIUM 1.6 mg/dl (1.7-2.5); POTASSIUM 3.8 mmol/L (3.5-5.1); SODIUM 137 mmol/L (135-144); TOTAL PROTEIN 5.8 g/dl (6.1-8.1)
[2018-01-21 07:31] LABS: ADD UMIC YES; UR ASCORBIC ACID NEGATIVE (NEGATIVE); UR BACTERIA MODERATE /HPF (NONE SEEN); UR BILIRUBIN (Dip) NEGATIVE (NEGATIVE); UR BLOOD (Dip) 1+ mg/dL (NEGATIVE); UR CLARITY CLOUDY (CLEAR); UR COLOR YELLOW (YELLOW); UR GLUCOSE (Dip) NEGATIVE (NEGATIVE); UR KETONES (Dip) NEGATIVE (NEGATIVE); UR LEUKOCYTE ESTERASE (Dip) 3+ Leu/ul (NEGATIVE); UR NITRITE (Dip) NEGATIVE (NEGATIVE); UR RBC 12 /HPF (0-5); UR SPECIFIC GRAVITY (Dip) 1.014 (1.003-1.030); UR SQUAMOUS EPITHELIAL CELL FEW /HPF (FEW); UR TOTAL PROTEIN (Dip) NEGATIVE (NEGATIVE); UR UROBILINOGEN (Dip) NEGATIVE (NEGATIVE); UR WBC > 182 /HPF (0-5)
[2018-01-21] MEDS: PANTOPRAZOLE 40 MG INJ IV ×2 (08:27→23:55)
[2018-01-21] MEDS: MAGNESIUM SULFATE 1 GM/D5W 100 ML IVPB (10:20)
[2018-01-21] MEDS: ALBUTEROL/IPRATROPIUM (NEB) 3 ML AMP HHN ×3 (10:38→20:50)
[2018-01-21] MEDS: TPN 1,000 ML IV (12:23)
[2018-01-21] MEDS: ACCU-CHEK XX ×3 (13:00→21:00)
[2018-01-21] MEDS: DIATR MEGLU/DIATRIZOATE SODIUM 120 ML BTL (14:39)
[2018-01-22] MEDS: ACCU-CHEK XX ×6 (01:00→20:35)
[2018-01-22] MEDS: TPN 1,000 ML IV ×3 (05:11→23:10)
[2018-01-22 05:25] LABS: ADD MAN DIFF? NO
[2018-01-22] MEDS: PIPER-TAZO 3.375 GM IV (PMX) 100 ML IVPB ×2 (05:33→12:23)
[2018-01-22 05:34] LABS: ABNORMAL IP MESSAGE 1; BASOPHILS % 0.1 % (0.0-2.0); EOSINOPHILS # 0.1 10^3/ul (0.0-0.5); EOSINOPHILS % 0.7 % (0.0-7.0); HEMATOCRIT 29.4 % (42.0-52.0); HEMOGLOBIN 9.5 g/dl (14.0-18.0); LYMPHOCYTES # 0.5 10^3/ul (0.8-2.9); LYMPHOCYTES % 5.9 % (15.0-51.0); MEAN CORPUSCULAR HGB CONC 32.3 g/dl (32.0-37.0); MEAN CORPUSCULAR VOLUME 89.6 fl (82.0-101.0); MEAN PLATELET VOLUME 12.1 fl (7.4-10.4); MONOCYTE # 0.8 10^3/ul (0.3-0.9); MONOCYTES % 10.9 % (0.0-11.0); NEUTROPHIL # 6.2 10^3/ul (1.6-7.5); NEUTROPHILS % 81.9 % (39.0-77.0); PLATELET COUNT 210 10^3/UL (140-415); POSITIVE DIFF @See below; RED BLOOD COUNT 3.28 10^6/ul (4.70-6.10); RED CELL DISTRIBUTION WIDTH 14.8 % (11.5-14.5)
[2018-01-22 05:34] LABS: WHITE BLOOD COUNT 7.6 10^3/ul (4.8-10.8)
[2018-01-22 05:59] LABS: INR 1.05; PROTIME 13.8 Sec (11.9-14.9); PT RATIO 1.1
[2018-01-22 06:00] LABS: PARTIAL THROMBOPLASTIN TIME 29.7 Sec (23.0-35.0)
[2018-01-22 06:13] LABS: ALANINE AMINOTRANSFERASE 35 IU/L (13-69); ALBUMIN 2.6 g/dl (3.3-4.9); ALBUMIN/GLOBULIN RATIO 0.74; ALKALINE PHOSPHATASE 165 IU/L (42-121); ANION GAP 12 (8-16); ASPARTATE AMINO TRANSFERASE 17 IU/L (15-46); BILIRUBIN,INDIRECT 0.6 mg/dl (0-1.1); BILIRUBIN,TOTAL 0.6 mg/dl (0.2-1.3); BLOOD UREA NITROGEN 38 mg/dl (7-20); CARBON DIOXIDE 23 mmol/L (21-31); CHLORIDE 109 mmol/L (97-110); CREATININE 1.22 mg/dl (0.61-1.24); GLUCOSE 112 mg/dl (70-220); PHOSPHORUS 2.9 mg/dl (2.5-4.9); POTASSIUM 3.2 mmol/L (3.5-5.1); SODIUM 141 mmol/L (135-144); TOTAL PROTEIN 6.1 g/dl (6.1-8.1)
[2018-01-22] MEDS: ALBUTEROL/IPRATROPIUM (NEB) 3 ML AMP HHN ×3 (08:00→19:18)
[2018-01-22] MEDS: PANTOPRAZOLE 40 MG INJ IV ×2 (08:34→20:28)
[2018-01-22] MEDS: POTASSIUM CHLORIDE 50 ML IVPB ×3 (09:55→12:23)
[2018-01-22] MEDS ORDERED: ONDANSETRON 4 MG INJ IV (14:30)
[2018-01-22] MEDS ORDERED: morphine 2 MG INJ IV (14:30)
[2018-01-23] MEDS: ACCU-CHEK XX ×6 (01:00→21:10)
[2018-01-23 05:37] LABS: ADD MAN DIFF? NO
[2018-01-23 05:43] LABS: ABNORMAL IP MESSAGE 1; BASOPHILS % 0.1 % (0.0-2.0); EOSINOPHILS % 0.3 % (0.0-7.0); HEMATOCRIT 29.9 % (42.0-52.0); HEMOGLOBIN 9.6 g/dl (14.0-18.0); LYMPHOCYTES # 0.5 10^3/ul (0.8-2.9); LYMPHOCYTES % 5.9 % (15.0-51.0); MEAN CORPUSCULAR HEMOGLOBIN 29.2 pg (29.0-33.0); MEAN CORPUSCULAR HGB CONC 32.1 g/dl (32.0-37.0); MEAN CORPUSCULAR VOLUME 90.9 fl (82.0-101.0); MEAN PLATELET VOLUME 11.2 fl (7.4-10.4); MONOCYTES % 11.6 % (0.0-11.0); NEUTROPHIL # 7.2 10^3/ul (1.6-7.5); NEUTROPHILS % 81.6 % (39.0-77.0); PLATELET COUNT 208 10^3/UL (140-415); POSITIVE DIFF @See below; RED BLOOD COUNT 3.29 10^6/ul (4.70-6.10); RED CELL DISTRIBUTION WIDTH 14.6 % (11.5-14.5)
[2018-01-23 05:43] LABS: WHITE BLOOD COUNT 8.8 10^3/ul (4.8-10.8)
[2018-01-23 06:20] LABS: ALANINE AMINOTRANSFERASE 33 IU/L (13-69); ALBUMIN 2.7 g/dl (3.3-4.9); ALBUMIN/GLOBULIN RATIO 0.79; ALKALINE PHOSPHATASE 171 IU/L (42-121); ANION GAP 10 (8-16); ASPARTATE AMINO TRANSFERASE 18 IU/L (15-46); BILIRUBIN,INDIRECT 0.6 mg/dl (0-1.1); BILIRUBIN,TOTAL 0.6 mg/dl (0.2-1.3); BLOOD UREA NITROGEN 27 mg/dl (7-20); CALCIUM 8.3 mg/dl (8.4-10.2); CARBON DIOXIDE 25 mmol/L (21-31); CHLORIDE 110 mmol/L (97-110); CREATININE 0.94 mg/dl (0.61-1.24); GLUCOSE 117 mg/dl (70-220); PHOSPHORUS 2.2 mg/dl (2.5-4.9); POTASSIUM 3.1 mmol/L (3.5-5.1); SODIUM 142 mmol/L (135-144); TOTAL PROTEIN 6.1 g/dl (6.1-8.1)
[2018-01-23] MEDS: ALBUTEROL/IPRATROPIUM (NEB) 3 ML AMP HHN ×3 (07:35→20:16)
[2018-01-23] MEDS: PANTOPRAZOLE 40 MG INJ IV ×2 (08:50→21:05)
[2018-01-23] MEDS: POTASSIUM CHLORIDE 50 ML IVPB ×3 (11:03→15:10)
[2018-01-23] MEDS: SODIUM PHOSPHATE 15 MMOL in SOD CHLORIDE 0.9% 250 ML IV (13:04)
[2018-01-23] MEDS: TPN 1,000 ML IV (15:10)
[2018-01-23] MEDS: POTASSIUM CHLORIDE 20 MEQ POWDER FOR ORAL SOLN PO (15:10)
[2018-01-23] MEDS: BACLOFEN 10 MG TAB PO ×2 (17:28→21:05)
[2018-01-23] MEDS: SENNA/DOCUSATE NA (8.6MG/50MG) TAB GTB (21:00)
[2018-01-23] MEDS: OXYBUTYNIN 5 MG TAB PO (21:05)
[2018-01-24] MEDS: ACCU-CHEK XX ×4 (01:00→12:24)
[2018-01-24 06:13] LABS: ANION GAP 12 (8-16); BLOOD UREA NITROGEN 24 mg/dl (7-20); CALCIUM 7.9 mg/dl (8.4-10.2); CARBON DIOXIDE 25 mmol/L (21-31); CHLORIDE 105 mmol/L (97-110); CREATININE 0.82 mg/dl (0.61-1.24); GLUCOSE 112 mg/dl (70-220); MAGNESIUM 1.8 mg/dl (1.7-2.5); PHOSPHORUS 2.7 mg/dl (2.5-4.9); POTASSIUM 3.7 mmol/L (3.5-5.1); SODIUM 138 mmol/L (135-144)
[2018-01-24] MEDS: ALBUTEROL/IPRATROPIUM (NEB) 3 ML AMP HHN ×2 (08:15→14:00)
[2018-01-24] MEDS: BACLOFEN 10 MG TAB PO ×2 (10:02→13:22)
[2018-01-24] MEDS: PANTOPRAZOLE 40 MG INJ IV (10:02)
[2018-01-24] MEDS: POLYETHYLENE GLYCOL 17 GM PACKET GTB (10:02)
[2018-01-24] MEDS: OXYBUTYNIN 5 MG TAB PO (10:02)
[2018-01-24] MEDS: POTASSIUM CHLORIDE 20 MEQ POWDER FOR ORAL SOLN PO (10:03)
[2018-01-24] MEDS: MAGNESIUM SULFATE 1 GM/D5W 100 ML IVPB (13:21)
[2018-01-24] MEDS ORDERED: METHYLNALTREXONE 12 MG/0.6 ML VIAL SC (15:30)
[2018-01-24] MEDS ORDERED: PANTOPRAZOLE 40 MG INJ IV (21:00)
[2018-01-24] MEDS ORDERED: OXYBUTYNIN 5 MG TAB PO (21:00)
== END 2018-01-24 16:41 | DRG 388 ==
LOC: 6WM 17:15
PROC: 5A1945Z Respiratory Ventilation, 24-96 Consecutive Hours (ICD-10-PCS; principal; 2018-01-20)
PROC: 3E0336Z Introduction of Nutritional Substance into Peripheral Vein, Percutaneous Approach (ICD-10-PCS; 2018-01-20)
DX: K56.699 Other intestinal obstruction unspecified as to partial versus complete obstruction (principal); G82.50 Quadriplegia, unspecified; J96.10 Chronic respiratory failure, unspecified whether with hypoxia or hypercapnia; N17.9 Acute kidney failure, unspecified; E87.2 Acidosis; K59.09 Other constipation; R33.9 Retention of urine, unspecified; D50.0 Iron deficiency anemia secondary to blood loss (chronic); Z99.81 Dependence on supplemental oxygen; Z87.440 Personal history of urinary (tract) infections; Z87.01 Personal history of pneumonia (recurrent)
CPT/HCPCS: 74018; 74250; 80048; 80053; 81001; 82962; 83735; 84100; 84134; 84478; 85025; 85610; 85730; 86850; 86900; 86901; 87081; 92526; 92610; 94003; 94640

== ENCOUNTER 2018-07-10 13:24 | Inpatient (IN) | payer MEDICARE, MEDICAID ==
[2018-07-10 14:40] LABS: ADD MAN DIFF? NO
[2018-07-10 14:45] LABS: WHITE BLOOD COUNT 8.4 10^3/ul (4.8-10.8)
[2018-07-10 14:45] LABS: BASOPHILS % 0.1 % (0.0-2.0); EOSINOPHILS # 0.1 10^3/ul (0.0-0.5); EOSINOPHILS % 0.6 % (0.0-7.0); HEMATOCRIT 37.8 % (42.0-52.0); HEMOGLOBIN 12.1 g/dl (14.0-18.0); LYMPHOCYTES # 0.7 10^3/ul (0.8-2.9); LYMPHOCYTES % 8.3 % (15.0-51.0); MEAN CORPUSCULAR HEMOGLOBIN 25.6 pg (29.0-33.0); MEAN CORPUSCULAR VOLUME 80.1 fl (82.0-101.0); MONOCYTES % 11.8 % (0.0-11.0); NEUTROPHIL # 6.6 10^3/ul (1.6-7.5); NEUTROPHILS % 78.6 % (39.0-77.0); PLATELET COUNT 306 10^3/UL (140-415); RED BLOOD COUNT 4.72 10^6/ul (4.70-6.10); RED CELL DISTRIBUTION WIDTH 17.1 % (11.5-14.5)
[2018-07-10 15:08] LABS: ALBUMIN/GLOBULIN RATIO 0.79; ANION GAP 17 (5-13); BILIRUBIN,TOTAL 0.6 mg/dl (0.2-1.3); Estimated GFR > 60 mL/min (>60)
[2018-07-10 15:28] LABS: ALANINE AMINOTRANSFERASE 158 IU/L (13-69); ALBUMIN 4.3 g/dl (3.3-4.9); ALKALINE PHOSPHATASE 349 IU/L (42-121); ASPARTATE AMINO TRANSFERASE 38 IU/L (15-46); BILIRUBIN,INDIRECT 0.6 mg/dl (0-1.1); BLOOD UREA NITROGEN 36 mg/dl (7-20); CALCIUM 10.2 mg/dl (8.4-10.2); CARBON DIOXIDE 15 mmol/L (21-31); CHLORIDE 104 mmol/L (97-110); GLUCOSE 105 mg/dl (70-220); LIPASE 101 U/L (23-300); POTASSIUM 4.7 mmol/L (3.5-5.1); SODIUM 136 mmol/L (135-144); TOTAL PROTEIN 9.7 g/dl (6.1-8.1)
[2018-07-10 15:55] LABS: ADD UMIC YES; UR AMORPHOUS CRYSTAL FEW /HPF (NONE SEEN); UR ASCORBIC ACID NEGATIVE (NEGATIVE); UR BACTERIA FEW /HPF (NONE SEEN); UR BILIRUBIN (Dip) NEGATIVE (NEGATIVE); UR BLOOD (Dip) NEGATIVE (NEGATIVE); UR CLARITY CLOUDY (CLEAR); UR COLOR YELLOW (YELLOW); UR GLUCOSE (Dip) NEGATIVE (NEGATIVE); UR KETONES (Dip) NEGATIVE (NEGATIVE); UR LEUKOCYTE ESTERASE (Dip) 3+ Leu/ul (NEGATIVE); UR NITRITE (Dip) POSITIVE (NEGATIVE); UR RBC 3 /HPF (0-5); UR SPECIFIC GRAVITY (Dip) 1.009 (1.003-1.030); UR SQUAMOUS EPITHELIAL CELL FEW /HPF (FEW); UR TOTAL PROTEIN (Dip) 1+ mg/dl (NEGATIVE); UR UROBILINOGEN (Dip) NEGATIVE (NEGATIVE); UR WBC 26 /HPF (0-5)
[2018-07-10] MEDS: SOD CHLORIDE 0.9% 1,000 ML IV ×2 (18:11→23:36)
[2018-07-10] MEDS: PIPER-TAZO 3.375 GM IV (PMX) 100 ML IVPB ×2 (18:11→23:36)
[2018-07-10] MEDS ORDERED: NACL 0.9% 3 ML SYG IV (20:00)
[2018-07-10] MEDS ORDERED: morphine 2 MG INJ IV (20:00)
[2018-07-10] MEDS ORDERED: ONDANSETRON 4 MG INJ IV (20:00)
[2018-07-10] MEDS ORDERED: BISACODYL (EC) 5 MG TAB PO (20:00)
[2018-07-10] MEDS ORDERED: DOCUSATE SODIUM 100 MG CAP PO (20:00)
[2018-07-10] MEDS: BISACODYL 10 MG SUPP PR (23:36)
[2018-07-11] MEDS: PIPER-TAZO 3.375 GM IV (PMX) 100 ML IVPB ×3 (05:10→18:00)
[2018-07-11] MEDS: HEPARIN 5,000 UNIT/1 ML VIAL SC ×3 (05:11→22:27)
[2018-07-11 06:17] LABS: ADD MAN DIFF? NO
[2018-07-11 06:26] LABS: WHITE BLOOD COUNT 5.8 10^3/ul (4.8-10.8)
[2018-07-11 06:26] LABS: BASOPHILS % 0.3 % (0.0-2.0); EOSINOPHILS # 0.1 10^3/ul (0.0-0.5); EOSINOPHILS % 0.9 % (0.0-7.0); HEMATOCRIT 33.6 % (42.0-52.0); HEMOGLOBIN 10.9 g/dl (14.0-18.0); LYMPHOCYTES # 0.8 10^3/ul (0.8-2.9); LYMPHOCYTES % 13.5 % (15.0-51.0); MEAN CORPUSCULAR HEMOGLOBIN 25.5 pg (29.0-33.0); MEAN CORPUSCULAR HGB CONC 32.4 g/dl (32.0-37.0); MEAN CORPUSCULAR VOLUME 78.7 fl (82.0-101.0); MEAN PLATELET VOLUME 10.4 fl (7.4-10.4); MONOCYTE # 0.7 10^3/ul (0.3-0.9); MONOCYTES % 11.3 % (0.0-11.0); NEUTROPHIL # 4.2 10^3/ul (1.6-7.5); NEUTROPHILS % 72.8 % (39.0-77.0); PLATELET COUNT 270 10^3/UL (140-415); RED BLOOD COUNT 4.27 10^6/ul (4.70-6.10); RED CELL DISTRIBUTION WIDTH 17.1 % (11.5-14.5)
[2018-07-11 06:50] LABS: ALANINE AMINOTRANSFERASE 107 IU/L (13-69); ALBUMIN 3.6 g/dl (3.3-4.9); ALBUMIN/GLOBULIN RATIO 0.81; ALKALINE PHOSPHATASE 250 IU/L (42-121); ANION GAP 15 (5-13); ASPARTATE AMINO TRANSFERASE 26 IU/L (15-46); BLOOD UREA NITROGEN 31 mg/dl (7-20); CALCIUM 9.3 mg/dl (8.4-10.2); CARBON DIOXIDE 16 mmol/L (21-31); CHLORIDE 109 mmol/L (97-110); CHOL/HDL RATIO 6.1 RATIO; CHOLESTEROL 111 mg/dl (100-200); CREATININE 0.89 mg/dl (0.61-1.24); Estimated GFR > 60 mL/min (>60); GLUCOSE 86 mg/dl (70-220); HDL CHOLESTEROL 18 mg/dl (27-67); LDL CHOLESTEROL,CALCULATED 65 mg/dl; MAGNESIUM 1.9 mg/dl (1.7-2.5); POTASSIUM 3.5 mmol/L (3.5-5.1); SODIUM 140 mmol/L (135-144); TRIGLYCERIDES 142 mg/dl (0-149)
[2018-07-11 07:09] LABS: HEMOGLOBIN A1C 5.4 % (0-5.9)
[2018-07-11] MEDS ORDERED: NA PHOSPHATE/BIPHOS 133 ML ENEMA PR (09:30)
[2018-07-11] MEDS: SOD CHLORIDE 0.9% 1,000 ML IV (13:49)
[2018-07-11] MEDS: DIATR MEGLU/DIATRIZOATE SODIUM 120 ML BTL ×6 (19:55→19:56)
[2018-07-12] MEDS: PIPER-TAZO 3.375 GM IV (PMX) 100 ML IVPB ×4 (01:48→17:29)
[2018-07-12] MEDS: SOD CHLORIDE 0.9% 1,000 ML IV ×2 (02:32→15:22)
[2018-07-12] MEDS: HEPARIN 5,000 UNIT/1 ML VIAL SC ×3 (06:01→22:00)
[2018-07-12] MEDS: hydrALAzine 20 MG INJ IV ×2 (07:32→16:15)
[2018-07-12] MEDS: BISACODYL 10 MG SUPP PR (17:15)
[2018-07-12] MEDS: DIATR MEGLU/DIATRIZOATE SODIUM 120 ML BTL ×2 (19:45)
[2018-07-13] MEDS: PIPER-TAZO 3.375 GM IV (PMX) 100 ML IVPB ×5 (00:46→23:18)
[2018-07-13] MEDS: SOD CHLORIDE 0.9% 1,000 ML IV ×2 (04:50→11:22)
[2018-07-13] MEDS: HEPARIN 5,000 UNIT/1 ML VIAL SC ×3 (05:38→21:33)
[2018-07-13] MEDS: hydrALAzine 20 MG INJ IV ×2 (08:22→21:27)
[2018-07-13] MEDS: DIATR MEGLU/DIATRIZOATE SODIUM 120 ML BTL (12:26)
[2018-07-13] MEDS ORDERED: BISACODYL 10 MG SUPP PR (22:00)
[2018-07-13] MEDS ORDERED: BACLOFEN 10 MG TAB PO (22:00)
[2018-07-13] MEDS: BACLOFEN 10 MG TAB PO (22:19)
[2018-07-13] MEDS: ACETAMINOPHEN 325 MG TAB PO (22:19)
[2018-07-14] MEDS: ACETAMINOPHEN 325 MG TAB PO (05:25)
[2018-07-14] MEDS: PIPER-TAZO 3.375 GM IV (PMX) 100 ML IVPB ×3 (05:26→17:42)
[2018-07-14] MEDS: HEPARIN 5,000 UNIT/1 ML VIAL SC ×4 (05:26→21:42)
[2018-07-14] MEDS: hydrALAzine 20 MG INJ IV (05:26)
[2018-07-14 06:11] LABS: ADD MAN DIFF? NO
[2018-07-14 06:15] LABS: BASOPHILS % 0.2 % (0.0-2.0); EOSINOPHILS % 0.2 % (0.0-7.0); HEMATOCRIT 32.4 % (42.0-52.0); HEMOGLOBIN 10.5 g/dl (14.0-18.0); LYMPHOCYTES # 0.8 10^3/ul (0.8-2.9); LYMPHOCYTES % 9.1 % (15.0-51.0); MEAN CORPUSCULAR HEMOGLOBIN 25.5 pg (29.0-33.0); MEAN CORPUSCULAR HGB CONC 32.4 g/dl (32.0-37.0); MEAN CORPUSCULAR VOLUME 78.8 fl (82.0-101.0); MEAN PLATELET VOLUME 10.2 fl (7.4-10.4); MONOCYTE # 0.7 10^3/ul (0.3-0.9); MONOCYTES % 8.7 % (0.0-11.0); NEUTROPHIL # 6.6 10^3/ul (1.6-7.5); NEUTROPHILS % 79.7 % (39.0-77.0); PLATELET COUNT 316 10^3/UL (140-415); RED BLOOD COUNT 4.11 10^6/ul (4.70-6.10)
[2018-07-14 06:15] LABS: WHITE BLOOD COUNT 8.2 10^3/ul (4.8-10.8)
[2018-07-14 06:42] LABS: INR 1.12; PROTIME 14.5 Sec (11.9-14.9); PT RATIO 1.1
[2018-07-14] MEDS ORDERED: hydrALAzine 20 MG INJ IV (07:00)
[2018-07-14 07:10] LABS: ALANINE AMINOTRANSFERASE 44 IU/L (13-69); ALBUMIN 3.9 g/dl (3.3-4.9); ALBUMIN/GLOBULIN RATIO 0.81; ALKALINE PHOSPHATASE 235 IU/L (42-121); ANION GAP 24 (5-13); ASPARTATE AMINO TRANSFERASE 23 IU/L (15-46); BILIRUBIN,INDIRECT 0.6 mg/dl (0-1.1); BILIRUBIN,TOTAL 0.6 mg/dl (0.2-1.3); BLOOD UREA NITROGEN 20 mg/dl (7-20); CALCIUM 9.9 mg/dl (8.4-10.2); CARBON DIOXIDE 12 mmol/L (21-31); CHLORIDE 116 mmol/L (97-110); CREATININE 0.85 mg/dl (0.61-1.24); Estimated GFR > 60 mL/min (>60); GLUCOSE 77 mg/dl (70-220); SODIUM 152 mmol/L (135-144); TOTAL PROTEIN 8.7 g/dl (6.1-8.1)
[2018-07-14 07:19] LABS: POTASSIUM 2.9 mmol/L (3.5-5.1)
[2018-07-14] MEDS: BACLOFEN 10 MG TAB PO ×4 (08:05→20:59)
[2018-07-14] MEDS: AMLODIPINE 2.5 MG TAB PO ×2 (08:05→20:53)
[2018-07-14] MEDS: OXYBUTYNIN 5 MG TAB PO (08:06)
[2018-07-14] MEDS: SOD CHLORIDE 0.9% 1,000 ML IV (10:40)
[2018-07-14] MEDS: POLYETHYLENE GLYCOL 17 GM PACKET PO (11:31)
[2018-07-14] MEDS: POTASSIUM CHLORIDE 20 MEQ POWDER FOR ORAL SOLN PO ×2 (11:31→16:42)
[2018-07-14] MEDS: SOD CHLORIDE 0.45% 1,000 ML IV ×2 (11:31→20:53)
[2018-07-14] MEDS: BISACODYL (EC) 5 MG TAB PO (13:16)
[2018-07-14 16:33] LABS: ANION GAP 15 (5-13); BLOOD UREA NITROGEN 17 mg/dl (7-20); CARBON DIOXIDE 18 mmol/L (21-31); CHLORIDE 112 mmol/L (97-110); CREATININE 0.77 mg/dl (0.61-1.24); Estimated GFR > 60 mL/min (>60); GLUCOSE 100 mg/dl (70-220); POTASSIUM 3.2 mmol/L (3.5-5.1); SODIUM 145 mmol/L (135-144)
[2018-07-14] MEDS: MAGNESIUM CITRATE 300 ML BTL PO (16:52)
[2018-07-14] MEDS: POTASSIUM CHLORIDE (SR) 20 MEQ TAB PO (17:43)
[2018-07-14] MEDS: POLYETHYLENE GLYCOL 3350 119 GM POWDER PO (18:30)
[2018-07-14] MEDS ORDERED: ALBUTEROL/IPRATROPIUM (NEB) 3 ML AMP HHN (19:00)
[2018-07-14 19:24] LABS: AADO2 Arterial 646.9 mmHg (7.0-24.0); Arterial Base Excess -7.2 mmol/L (-3.0-3); Arterial Blood Gas Oxygen Sat 80.8 mmHG (95.0-98.0); Arterial COHb 0.3 % (0.0-3.0); Arterial Fraction of Oxyhgb 80.2 % (93.0-99.0); Arterial HCO3 17.4 mmol/L (22.0-26.0); Arterial MetHb 0.4 % (0.0-1.5); Arterial pCO2 29.7 mmhg (35-45); MODE VENT - AC; Site Left Radial
[2018-07-14] MEDS: ENOXAPARIN 100 MG/ML SYG SC (22:58)
[2018-07-14 23:45] LABS: AADO2 Arterial 319.6 mmHg (7.0-24.0); Arterial Blood Gas Oxygen Sat 93.9 mmHG (95.0-98.0); Arterial COHb 0.3 % (0.0-3.0); Arterial Fraction of Oxyhgb 93.3 % (93.0-99.0); Arterial HCO3 17.5 mmol/L (22.0-26.0); Arterial MetHb 0.3 % (0.0-1.5); Arterial pCO2 31.9 mmhg (35-45); MODE VENT - PC; Site Right Brachial
[2018-07-15] MEDS: PIPER-TAZO 3.375 GM IV (PMX) 100 ML IVPB ×4 (00:25→17:58)
[2018-07-15] MEDS: SOD CHLORIDE 0.45% 1,000 ML IV ×3 (00:26→11:19)
[2018-07-15] MEDS: POLYETHYLENE GLYCOL 3350 119 GM POWDER PO (05:23)
[2018-07-15 07:25] LABS: ANION GAP 14 (5-13); BLOOD UREA NITROGEN 13 mg/dl (7-20); CALCIUM 8.6 mg/dl (8.4-10.2); CARBON DIOXIDE 17 mmol/L (21-31); CHLORIDE 111 mmol/L (97-110); CREATININE 0.66 mg/dl (0.61-1.24); Estimated GFR > 60 mL/min (>60); GLUCOSE 91 mg/dl (70-220); POTASSIUM 3.4 mmol/L (3.5-5.1); SODIUM 142 mmol/L (135-144)
[2018-07-15] MEDS: BISACODYL (EC) 5 MG TAB PO (08:00)
[2018-07-15] MEDS: AMLODIPINE 2.5 MG TAB PO (09:00)
[2018-07-15] MEDS: POLYETHYLENE GLYCOL 17 GM PACKET PO (09:00)
[2018-07-15] MEDS: BACLOFEN 10 MG TAB PO ×3 (09:26→17:58)
[2018-07-15] MEDS: OXYBUTYNIN 5 MG TAB PO (09:26)
[2018-07-15] MEDS: ENOXAPARIN 100 MG/ML SYG SC (10:12)
[2018-07-15] MEDS: POTASSIUM CHLORIDE (SR) 20 MEQ TAB PO (15:43)
== END 2018-07-15 21:17 | DRG 388 ==
LOC: E/R 13:24 → TEL 18:07
PROC: 5A1955Z Respiratory Ventilation, Greater than 96 Consecutive Hours (ICD-10-PCS; principal; 2018-07-10)
DX: K56.0 Paralytic ileus (principal); G82.50 Quadriplegia, unspecified; T83.511A Infection and inflammatory reaction due to indwelling urethral catheter, initial encounter; N39.0 Urinary tract infection, site not specified; E87.0 Hyperosmolality and hypernatremia; J96.11 Chronic respiratory failure with hypoxia; Y73.2 Prosthetic and other implants, materials and accessory gastroenterology and urology devices associated with adverse incidents; S14.102S Unspecified injury at C2 level of cervical spinal cord, sequela; V89.2XXS Person injured in unspecified motor-vehicle accident, traffic, sequela; I10 Essential (primary) hypertension; Z87.81 Personal history of (healed) traumatic fracture; Z93.0 Tracheostomy status; Z93.3 Colostomy status; N31.9 Neuromuscular dysfunction of bladder, unspecified; N28.1 Cyst of kidney, acquired; N21.0 Calculus in bladder; E87.6 Hypokalemia; I95.89 Other hypotension
CPT/HCPCS: 36415; 36600; 71045; 74018; 74176; 74250; 74270; 76775; 80048; 80053; 80061; 81001; 82803; 83036; 83690; 83735; 84443; 85025; 85610; 87086; 93005; 94002; 94003; 99285-25

== ENCOUNTER 2018-10-31 03:18 | Inpatient (IN) | payer MEDICARE, MEDICAID ==
[2018-10-31 04:39] LABS: ADD MAN DIFF? NO
[2018-10-31 04:40] LABS: ABNORMAL IP MESSAGE 1; BASOPHILS % 0.2 % (0.0-2.0); HEMATOCRIT 36.3 % (42.0-52.0); HEMOGLOBIN 12.1 g/dl (14.0-18.0); LYMPHOCYTES # 0.2 10^3/ul (0.8-2.9); LYMPHOCYTES % 1.6 % (15.0-51.0); MEAN CORPUSCULAR HEMOGLOBIN 24.1 pg (29.0-33.0); MEAN CORPUSCULAR HGB CONC 33.3 g/dl (32.0-37.0); MEAN CORPUSCULAR VOLUME 72.3 fl (82.0-101.0); MEAN PLATELET VOLUME 10.3 fl (7.4-10.4); MONOCYTE # 0.9 10^3/ul (0.3-0.9); MONOCYTES % 6.6 % (0.0-11.0); NEUTROPHILS % 90.8 % (39.0-77.0); PLATELET COUNT 411 10^3/UL (140-415); POSITIVE DIFF @See below; RED BLOOD COUNT 5.02 10^6/ul (4.70-6.10); RED CELL DISTRIBUTION WIDTH 16.7 % (11.5-14.5)
[2018-10-31 04:40] LABS: WHITE BLOOD COUNT 13.2 10^3/ul (4.8-10.8)
[2018-10-31] MEDS ORDERED: ONDANSETRON 4 MG INJ ×2 (04:45→04:53)
[2018-10-31 04:53] LABS: ADD UMIC YES; UR ASCORBIC ACID NEGATIVE (NEGATIVE); UR BACTERIA FEW /HPF (NONE SEEN); UR BILIRUBIN (Dip) 1+ mg/dL (NEGATIVE); UR BLOOD (Dip) NEGATIVE (NEGATIVE); UR CLARITY TURBID (CLEAR); UR COLOR AMBER (YELLOW); UR GLUCOSE (Dip) NEGATIVE (NEGATIVE); UR KETONES (Dip) NEGATIVE (NEGATIVE); UR LEUKOCYTE ESTERASE (Dip) 3+ Leu/ul (NEGATIVE); UR MUCUS MANY /HPF (NONE SEEN); UR NITRITE (Dip) NEGATIVE (NEGATIVE); UR RBC 2 /HPF (0-5); UR SPECIFIC GRAVITY (Dip) 1.023 (1.003-1.030); UR SQUAMOUS EPITHELIAL CELL FEW /HPF (FEW); UR TOTAL PROTEIN (Dip) 3+ mg/dl (NEGATIVE); UR URIC ACID CRYSTAL MANY /HPF (NONE SEEN); UR UROBILINOGEN (Dip) NEGATIVE (NEGATIVE); UR WBC 121 /HPF (0-5)
[2018-10-31 05:03] LABS: ALANINE AMINOTRANSFERASE 35 IU/L (13-69); ALBUMIN 4.6 g/dl (3.3-4.9); ALBUMIN/GLOBULIN RATIO 0.73; ALKALINE PHOSPHATASE 374 IU/L (42-121); ANION GAP 22 (5-13); ASPARTATE AMINO TRANSFERASE 19 IU/L (15-46); BILIRUBIN,INDIRECT 0.5 mg/dl (0-1.1); BILIRUBIN,TOTAL 0.5 mg/dl (0.2-1.3); BLOOD UREA NITROGEN 40 mg/dl (7-20); CALCIUM 11.2 mg/dl (8.4-10.2); CARBON DIOXIDE 16 mmol/L (21-31); CHLORIDE 94 mmol/L (97-110); CREATININE 1.21 mg/dl (0.61-1.24); Estimated GFR > 60 mL/min (>60); GLUCOSE 132 mg/dl (70-220); LIPASE 32 U/L (23-300); POTASSIUM 4.6 mmol/L (3.5-5.1); SODIUM 132 mmol/L (135-144); TOTAL PROTEIN 10.9 g/dl (6.1-8.1)
[2018-10-31] MEDS: ONDANSETRON INJ 8 MG in DEXTROSE 5% 50 ML IV (05:13)
[2018-10-31 05:14] LABS: TROPONIN-I < 0.012 ng/ml (0.000-0.120)
[2018-10-31] MEDS: METOCLOPRAMIDE 10 MG INJ IV (05:42)
[2018-10-31 05:48] LABS: AADO2 Arterial 236.4 mmHg (7.0-24.0); Allen Test ACCEPTAB; Arterial Base Excess -4.8 mmol/L (-3.0-3); Arterial Blood Gas Oxygen Sat 97.6 mmHG (95.0-98.0); Arterial COHb 0.5 % (0.0-3.0); Arterial Fraction of Oxyhgb 96.6 % (93.0-99.0); Arterial HCO3 17.6 mmol/L (22.0-26.0); Arterial MetHb 0.5 % (0.0-1.5); MODE VENT - SIMV; Site Right Radial
[2018-10-31] MEDS ORDERED: NACL 0.9% 3 ML SYG IV ×2 (06:30→10:30)
[2018-10-31] MEDS ORDERED: morphine 2 MG INJ IV (06:30)
[2018-10-31] MEDS ORDERED: ONDANSETRON 4 MG INJ IV ×2 (06:30→10:30)
[2018-10-31] MEDS ORDERED: METOCLOPRAMIDE 10 MG INJ IV (06:30)
[2018-10-31] MEDS: SOD CHLORIDE 0.9% 1,000 ML IV ×3 (06:48→23:28)
[2018-10-31] MEDS ORDERED: VANCOMYCIN IV PER PHARMACY XX (10:30)
[2018-10-31] MEDS ORDERED: NITROGLYCERIN (SL) 0.4 MG TAB SL (10:30)
[2018-10-31] MEDS ORDERED: ACETAMINOPHEN 650 MG SUPP PR (10:30)
[2018-10-31 11:02] LABS: LACTIC ACID 1.4 mmol/L (0.5-2.0)
[2018-10-31] MEDS: PIPER-TAZO 3.375 GM IV (PMX) 100 ML IVPB ×2 (11:14→22:00)
[2018-10-31] MEDS: SOD CHLORIDE 0.9% 2,540 ML IV (11:48)
[2018-10-31] MEDS: IOHEXOL 300MG/ML 150 ML BTL ×2 (11:58→14:57)
[2018-10-31] MEDS ORDERED: ALBUTEROL/IPRATROPIUM (NEB) 3 ML AMP NEB (13:00)
[2018-10-31] MEDS: LIDOCAINE 1% (MPF) 5 ML VIAL SC (13:00)
[2018-10-31] MEDS: IPRATROPIUM (HFA) 12.9 GM INHALER INH ×2 (14:30→20:22)
[2018-10-31] MEDS: ALBUTEROL HFA 8 GM INHALER INH ×2 (17:00→20:22)
[2018-10-31] MEDS: BISACODYL 10 MG SUPP PR (18:21)
[2018-10-31] MEDS: metroNIDAZOLE 500 MG/NS (PMX) 100 ML IVPB ×2 (19:16→22:00)
[2018-10-31] MEDS: VANCOMYCIN HCL 1.5 GM in SOD CHLORIDE 0.9% 250 ML IVPB (21:30)
[2018-10-31] MEDS: FAMOTIDINE 20 MG INJ IV (21:33)
[2018-11-01] MEDS: IPRATROPIUM (HFA) 12.9 GM INHALER INH ×4 (01:04→19:30)
[2018-11-01] MEDS: ALBUTEROL HFA 8 GM INHALER INH ×5 (01:04→19:30)
[2018-11-01 04:40] LABS: ADD MAN DIFF? NO
[2018-11-01 04:47] LABS: WHITE BLOOD COUNT 11.8 10^3/ul (4.8-10.8)
[2018-11-01 04:47] LABS: ABNORMAL IP MESSAGE 1; BASOPHILS % 0.2 % (0.0-2.0); HEMATOCRIT 32.1 % (42.0-52.0); HEMOGLOBIN 10.5 g/dl (14.0-18.0); LYMPHOCYTES # 0.4 10^3/ul (0.8-2.9); LYMPHOCYTES % 3.4 % (15.0-51.0); MEAN CORPUSCULAR HGB CONC 32.7 g/dl (32.0-37.0); MEAN CORPUSCULAR VOLUME 73.5 fl (82.0-101.0); MEAN PLATELET VOLUME 10.8 fl (7.4-10.4); MONOCYTE # 1.5 10^3/ul (0.3-0.9); MONOCYTES % 12.4 % (0.0-11.0); NEUTROPHIL # 9.9 10^3/ul (1.6-7.5); NEUTROPHILS % 83.5 % (39.0-77.0); PLATELET COUNT 376 10^3/UL (140-415); POSITIVE DIFF @See below; RED BLOOD COUNT 4.37 10^6/ul (4.70-6.10); RED CELL DISTRIBUTION WIDTH 16.9 % (11.5-14.5)
[2018-11-01 06:00] LABS: ALANINE AMINOTRANSFERASE 16 IU/L (13-69); ALBUMIN 4.1 g/dl (3.3-4.9); ALBUMIN/GLOBULIN RATIO 0.71; ALKALINE PHOSPHATASE 283 IU/L (42-121); ANION GAP 20 (5-13); ASPARTATE AMINO TRANSFERASE 17 IU/L (15-46); BILIRUBIN,INDIRECT 0.5 mg/dl (0-1.1); BILIRUBIN,TOTAL 0.5 mg/dl (0.2-1.3); BLOOD UREA NITROGEN 63 mg/dl (7-20); CALCIUM 9.7 mg/dl (8.4-10.2); CARBON DIOXIDE 18 mmol/L (21-31); CHLORIDE 101 mmol/L (97-110); CREATININE 2.17 mg/dl (0.61-1.24); Estimated GFR 39 mL/min (>60); GLUCOSE 116 mg/dl (70-220); MAGNESIUM 2.1 mg/dl (1.7-2.5); POTASSIUM 3.6 mmol/L (3.5-5.1); SODIUM 139 mmol/L (135-144); TOTAL PROTEIN 9.8 g/dl (6.1-8.1)
[2018-11-01] MEDS: PIPER-TAZO 3.375 GM IV (PMX) 100 ML IVPB ×3 (06:22→21:09)
[2018-11-01] MEDS: metroNIDAZOLE 500 MG/NS (PMX) 100 ML IVPB ×3 (06:22→21:09)
[2018-11-01 07:09] LABS: HEMOGLOBIN A1C 5.3 % (0-5.9)
[2018-11-01] MEDS: FAMOTIDINE 20 MG INJ IV ×2 (08:28→21:09)
[2018-11-01] MEDS: ENOXAPARIN 40 MG/0.4 ML SYG SC (08:31)
[2018-11-01] MEDS: ACETYLCYSTEINE 20% 4 ML VIAL NEB ×3 (10:00→19:30)
[2018-11-01 11:02] LABS: TRIGLYCERIDES 130 mg/dl (0-149)
[2018-11-01 11:02] LABS: PHOSPHORUS 7.7 mg/dl (2.5-4.9)
[2018-11-01] MEDS: SOD CHLORIDE 0.9% 1,000 ML IV ×3 (11:02→17:42)
[2018-11-01 11:09] LABS: PREALBUMIN 12.5 mg/dl (17.6-36.0)
[2018-11-01] MEDS: ACCU-CHEK XX ×6 (13:22→21:00)
[2018-11-01 13:50] LABS: ALANINE AMINOTRANSFERASE 14 IU/L (13-69); ALBUMIN 3.7 g/dl (3.3-4.9); ALBUMIN/GLOBULIN RATIO 0.72; ALKALINE PHOSPHATASE 233 IU/L (42-121); ANION GAP 18 (5-13); ASPARTATE AMINO TRANSFERASE 14 IU/L (15-46); BILIRUBIN,INDIRECT 0.6 mg/dl (0-1.1); BILIRUBIN,TOTAL 0.6 mg/dl (0.2-1.3); BLOOD UREA NITROGEN 61 mg/dl (7-20); CALCIUM 9.1 mg/dl (8.4-10.2); CARBON DIOXIDE 17 mmol/L (21-31); CHLORIDE 106 mmol/L (97-110); CREATININE 1.84 mg/dl (0.61-1.24); Estimated GFR 48 mL/min (>60); GLUCOSE 98 mg/dl (70-220); POTASSIUM 3.2 mmol/L (3.5-5.1); SODIUM 141 mmol/L (135-144); TOTAL PROTEIN 8.8 g/dl (6.1-8.1); TRIGLYCERIDES 120 mg/dl (0-149)
[2018-11-01] MEDS ORDERED: METOCLOPRAMIDE 10 MG INJ IV ×2 (18:00)
[2018-11-01] MEDS: METOCLOPRAMIDE 10 MG INJ IV (18:02)
[2018-11-01 20:43] LABS: UR BILIRUBIN (Dip) NEGATIVE (NEGATIVE); UR BLOOD (Dip) 1+ mg/dL (NEGATIVE); UR CLARITY CLOUDY (CLEAR); UR COLOR YELLOW (YELLOW); UR GLUCOSE (Dip) NEGATIVE (NEGATIVE); UR KETONES (Dip) TRACE mg/dL (NEGATIVE); UR NITRITE (Dip) NEGATIVE (NEGATIVE); UR SPECIFIC GRAVITY (Dip) 1.018 (1.003-1.030); UR TOTAL PROTEIN (Dip) 1+ mg/dl (NEGATIVE)
[2018-11-01 20:44] LABS: ADD UMIC YES; UR ASCORBIC ACID NEGATIVE (NEGATIVE); UR LEUKOCYTE ESTERASE (Dip) 3+ Leu/ul (NEGATIVE); UR RBC 4 /HPF (0-5); UR SQUAMOUS EPITHELIAL CELL FEW /HPF (FEW); UR UROBILINOGEN (Dip) NEGATIVE (NEGATIVE); UR WBC 128 /HPF (0-5)
[2018-11-01] MEDS: HEPARIN 5,000 UNIT/1 ML VIAL SC (21:14)
[2018-11-01 23:24] LABS: SODIUM,URINE RANDOM 54 mmol/L (30-90)
[2018-11-02] MEDS: METOCLOPRAMIDE 10 MG INJ IV ×2 (00:42→05:11)
[2018-11-02] MEDS: SOD CHLORIDE 0.9% 1,000 ML IV (00:43)
[2018-11-02] MEDS: ACCU-CHEK XX ×7 (01:00→21:52)
[2018-11-02] MEDS: IPRATROPIUM (HFA) 12.9 GM INHALER INH ×4 (01:21→20:06)
[2018-11-02] MEDS: ACETYLCYSTEINE 20% 4 ML VIAL NEB ×4 (01:21→20:06)
[2018-11-02] MEDS: ALBUTEROL HFA 8 GM INHALER INH ×4 (01:21→20:06)
[2018-11-02] MEDS: DEXTROSE 5%-0.9% NACL 1,000 ML IV (01:39)
[2018-11-02] MEDS: PIPER-TAZO 3.375 GM IV (PMX) 100 ML IVPB ×3 (05:11→20:40)
[2018-11-02] MEDS: metroNIDAZOLE 500 MG/NS (PMX) 100 ML IVPB ×3 (05:11→21:49)
[2018-11-02 06:55] LABS: ANION GAP 15 (5-13); BLOOD UREA NITROGEN 47 mg/dl (7-20); CARBON DIOXIDE 16 mmol/L (21-31); CHLORIDE 115 mmol/L (97-110); Estimated GFR > 60 mL/min (>60); GLUCOSE 88 mg/dl (70-220); MAGNESIUM 2.1 mg/dl (1.7-2.5); PHOSPHORUS 2.4 mg/dl (2.5-4.9); SODIUM 146 mmol/L (135-144)
[2018-11-02 07:17] LABS: POTASSIUM 2.8 mmol/L (3.5-5.1)
[2018-11-02] MEDS ORDERED: SOD CHLORIDE 0.45% 1,000 ML IV (09:00)
[2018-11-02] MEDS ORDERED: POTASSIUM CHLORIDE 50 ML IVPB ×2 (09:00→19:00)
[2018-11-02] MEDS: FAMOTIDINE 20 MG INJ IV ×2 (09:57→20:40)
[2018-11-02] MEDS: POTASSIUM CHLORIDE 20 MEQ/SW 100 ML IVPB ×2 (10:03→12:54)
[2018-11-02] MEDS: HEPARIN 5,000 UNIT/1 ML VIAL SC ×2 (10:28→20:42)
[2018-11-02] MEDS: VANCOMYCIN HCL 1.25 GM in SOD CHLORIDE 0.9% 250 ML IVPB (11:22)
[2018-11-02] MEDS: DEXTROSE 5%-0.45% NACL 1,000 ML IV (11:23)
[2018-11-02 18:12] LABS: POTASSIUM 2.7 mmol/L (3.5-5.1)
[2018-11-02] MEDS: POTASSIUM CHLORIDE 100 ML IVPB ×4 (20:28→23:19)
[2018-11-03] MEDS: ALBUTEROL HFA 8 GM INHALER INH ×4 (00:43→20:00)
[2018-11-03] MEDS: ACETYLCYSTEINE 20% 4 ML VIAL NEB ×4 (00:43→20:49)
[2018-11-03] MEDS: IPRATROPIUM (HFA) 12.9 GM INHALER INH ×4 (00:43→21:12)
[2018-11-03] MEDS: ACCU-CHEK XX ×6 (01:00→21:20)
[2018-11-03] MEDS: DEXTROSE 5%-0.45% NACL 1,000 ML IV (03:19)
[2018-11-03] MEDS: PIPER-TAZO 3.375 GM IV (PMX) 100 ML IVPB ×3 (05:56→21:19)
[2018-11-03] MEDS: metroNIDAZOLE 500 MG/NS (PMX) 100 ML IVPB ×3 (05:56→21:19)
[2018-11-03 06:32] LABS: ANION GAP 10 (5-13); BLOOD UREA NITROGEN 23 mg/dl (7-20); CALCIUM 8.2 mg/dl (8.4-10.2); CARBON DIOXIDE 17 mmol/L (21-31); CHLORIDE 112 mmol/L (97-110); CREATININE 0.77 mg/dl (0.61-1.24); Estimated GFR > 60 mL/min (>60); MAGNESIUM 1.6 mg/dl (1.7-2.5); PHOSPHORUS 1.6 mg/dl (2.5-4.9); POTASSIUM 3.5 mmol/L (3.5-5.1); SODIUM 139 mmol/L (135-144)
[2018-11-03 06:35] LABS: GLUCOSE 443 mg/dl (70-220)
[2018-11-03] MEDS: FAMOTIDINE 20 MG INJ IV ×2 (08:23→21:19)
[2018-11-03] MEDS: MAGNESIUM SULFATE 2 GM/50 ML 50 ML IVPB (08:23)
[2018-11-03 08:27] LABS: GLUCOSE 91 mg/dl (70-220)
[2018-11-03] MEDS: HEPARIN 5,000 UNIT/1 ML VIAL SC ×2 (09:38→21:00)
[2018-11-03] MEDS: POTASSIUM PHOSPHATE 20 MEQ in SOD CHLORIDE 0.9% 250 ML IVPB (10:47)
[2018-11-03] MEDS ORDERED: VANCOMYCIN HCL 1.25 GM in SOD CHLORIDE 0.9% 250 ML IVPB (11:00)
[2018-11-03] MEDS: BACLOFEN 10 MG TAB NGT ×2 (13:02→21:18)
[2018-11-03] MEDS: BALSAM PERU/CASTOR OIL 60 GM TUBE TOP (21:00)
[2018-11-04] MEDS: ACETYLCYSTEINE 20% 4 ML VIAL NEB ×4 (01:46→19:18)
[2018-11-04] MEDS: ACCU-CHEK XX ×6 (01:49→21:27)
[2018-11-04] MEDS: ALBUTEROL HFA 8 GM INHALER INH ×4 (01:53→19:18)
[2018-11-04] MEDS: IPRATROPIUM (HFA) 12.9 GM INHALER INH ×4 (01:53→19:18)
[2018-11-04] MEDS: metroNIDAZOLE 500 MG/NS (PMX) 100 ML IVPB ×3 (05:04→21:29)
[2018-11-04] MEDS: PIPER-TAZO 3.375 GM IV (PMX) 100 ML IVPB ×2 (05:05→13:17)
[2018-11-04 06:34] LABS: ADD MAN DIFF? NO
[2018-11-04 06:46] LABS: WHITE BLOOD COUNT 8.7 10^3/ul (4.8-10.8)
[2018-11-04 06:46] LABS: BASOPHILS % 0.3 % (0.0-2.0); EOSINOPHILS # 0.2 10^3/ul (0.0-0.5); EOSINOPHILS % 1.7 % (0.0-7.0); HEMATOCRIT 33.3 % (42.0-52.0); HEMOGLOBIN 9.8 g/dl (14.0-18.0); LYMPHOCYTES # 0.8 10^3/ul (0.8-2.9); LYMPHOCYTES % 9.4 % (15.0-51.0); MEAN CORPUSCULAR HEMOGLOBIN 23.6 pg (29.0-33.0); MEAN CORPUSCULAR HGB CONC 29.4 g/dl (32.0-37.0); MEAN PLATELET VOLUME 11.3 fl (7.4-10.4); MONOCYTE # 0.7 10^3/ul (0.3-0.9); MONOCYTES % 8.5 % (0.0-11.0); NEUTROPHIL # 6.6 10^3/ul (1.6-7.5); NEUTROPHILS % 76.4 % (39.0-77.0); PLATELET COUNT 288 10^3/UL (140-415); RED BLOOD COUNT 4.16 10^6/ul (4.70-6.10); RED CELL DISTRIBUTION WIDTH 17.8 % (11.5-14.5)
[2018-11-04 07:22] LABS: ANION GAP 11 (5-13); BLOOD UREA NITROGEN 19 mg/dl (7-20); CALCIUM 8.5 mg/dl (8.4-10.2); CARBON DIOXIDE 17 mmol/L (21-31); CHLORIDE 111 mmol/L (97-110); CREATININE 0.68 mg/dl (0.61-1.24); Estimated GFR > 60 mL/min (>60); GLUCOSE 83 mg/dl (70-220); MAGNESIUM 1.9 mg/dl (1.7-2.5); PHOSPHORUS 2.8 mg/dl (2.5-4.9); POTASSIUM 3.7 mmol/L (3.5-5.1); SODIUM 139 mmol/L (135-144)
[2018-11-04] MEDS: HEPARIN 5,000 UNIT/1 ML VIAL SC ×2 (08:46→21:00)
[2018-11-04] MEDS: BACLOFEN 10 MG TAB NGT ×3 (08:46→21:29)
[2018-11-04] MEDS: FAMOTIDINE 20 MG INJ IV ×2 (08:46→21:28)
[2018-11-04] MEDS: BALSAM PERU/CASTOR OIL 60 GM TUBE TOP ×2 (08:47→21:29)
[2018-11-04] MEDS: BISACODYL 10 MG SUPP PR (08:57)
[2018-11-04] MEDS: hydrALAzine 20 MG INJ IV (08:58)
[2018-11-04 15:04] LABS: CREATININE, RANDOM URINE 56 mg/dL (20-320); MICROALBUMIN 9.6 mg/dL; MICROALBUMIN/CREATININE RATIO 171 (<30)
[2018-11-04] MEDS: CEFEPIME 1GM/50 ML (PMX) 50 ML IVPB (21:28)
[2018-11-05] MEDS: ACCU-CHEK XX ×5 (01:30→17:08)
[2018-11-05] MEDS: IPRATROPIUM (HFA) 12.9 GM INHALER INH ×4 (01:41→19:44)
[2018-11-05] MEDS: ALBUTEROL HFA 8 GM INHALER INH ×4 (01:41→19:43)
[2018-11-05] MEDS: ACETYLCYSTEINE 20% 4 ML VIAL NEB ×4 (01:41→19:44)
[2018-11-05] MEDS: metroNIDAZOLE 500 MG/NS (PMX) 100 ML IVPB ×3 (05:35→22:41)
[2018-11-05] MEDS: ONDANSETRON 4 MG INJ IV ×2 (06:04→14:31)
[2018-11-05 06:34] LABS: ABNORMAL IP MESSAGE 1; HEMATOCRIT 33.9 % (42.0-52.0); HEMOGLOBIN 10.6 g/dl (14.0-18.0); MEAN CORPUSCULAR HEMOGLOBIN 23.8 pg (29.0-33.0); MEAN CORPUSCULAR HGB CONC 31.3 g/dl (32.0-37.0); MEAN PLATELET VOLUME 10.5 fl (7.4-10.4); PLATELET COUNT 405 10^3/UL (140-415); POSITIVE DIFF @See below; RED BLOOD COUNT 4.46 10^6/ul (4.70-6.10); RED CELL DISTRIBUTION WIDTH 17.5 % (11.5-14.5)
[2018-11-05 06:34] LABS: WHITE BLOOD COUNT 10.4 10^3/ul (4.8-10.8)
[2018-11-05 06:56] LABS: ADD MAN DIFF? YES
[2018-11-05 07:02] LABS: Estimated GFR > 60 mL/min (>60)
[2018-11-05 07:22] LABS: CARBON DIOXIDE 18 mmol/L (21-31); CHLORIDE 107 mmol/L (97-110); SODIUM 139 mmol/L (135-144)
[2018-11-05 07:23] LABS: ANION GAP 14 (5-13); BLOOD UREA NITROGEN 20 mg/dl (7-20); CALCIUM 9.1 mg/dl (8.4-10.2); CREATININE 0.69 mg/dl (0.61-1.24); GLUCOSE 82 mg/dl (70-220)
[2018-11-05 07:28] LABS: POTASSIUM 2.9 mmol/L (3.5-5.1)
[2018-11-05 07:52] LABS: ANISOCYTOSIS 1+ (0-0); BAND NEUTROPHILS #M 0.3 10^3/ul (0.0-0.6); BAND NEUTROPHILS % (M) 3 % (0-4); BURR CELLS 1+ (0-0); GIANT THROMBO% (M) 3 % (0-0); LYMPHOCYTES #M 0.9 10^3/ul (0.8-2.9); LYMPHOCYTES % (M) 9 % (15-51); METAMYELOCYTES #M 0.2 10^3/ul (0.0-0.0); METAMYELOCYTES %M 2 % (0-0); MICROCYTOSIS 1+ (0-0); MONOCYTE #M 0.8 10^3/ul (0.3-0.9); MONOCYTES % (M) 8 % (0-11); MYELOCYTES #M 0.1 10^3/ul (0.0-0.0); MYELOCYTES % (M) 1 % (0-0); PLATELET ESTIMATE NORMAL; POIKILOCYTOSIS 3+ (0-0); POLYCHROMASIA 3+ (0-0); REACTIVE LYMPHOCYTES #M 0.1 10^3/ul (0.0-0.0); REACTIVE LYMPHOCYTES% (M) 1 % (0-0); SEG NEUT #M 7.9 10^3/ul (1.6-7.5); SEGMENTED NEUTROPHILS (M) % 76 % (39-77); TARGET CELLS 1+ (0-0)
[2018-11-05] MEDS: POTASSIUM CHLORIDE 100 ML IVPB ×3 (08:45→14:38)
[2018-11-05] MEDS: CEFEPIME 1GM/50 ML (PMX) 50 ML IVPB ×2 (08:45→20:51)
[2018-11-05] MEDS: FAMOTIDINE 20 MG INJ IV ×2 (08:46→20:51)
[2018-11-05 08:47] LABS: MAGNESIUM 1.9 mg/dl (1.7-2.5)
[2018-11-05] MEDS: BALSAM PERU/CASTOR OIL 60 GM TUBE TOP ×2 (08:47→20:51)
[2018-11-05] MEDS: metroNIDAZOLE 500 MG TAB PO ×2 (08:47→14:00)
[2018-11-05] MEDS: BACLOFEN 10 MG TAB NGT ×3 (08:47→20:51)
[2018-11-05] MEDS ORDERED: POTASSIUM CHLORIDE 100 ML IVPB (09:00)
[2018-11-05] MEDS: PROPOFOL 20 ML (19:32)
[2018-11-06] MEDS: ACCU-CHEK XX ×5 (00:32→22:04)
[2018-11-06] MEDS: DEXTROSE 5%-0.45% NACL 1,000 ML IV (01:02)
[2018-11-06] MEDS: IPRATROPIUM (HFA) 12.9 GM INHALER INH ×4 (01:33→20:25)
[2018-11-06] MEDS: ACETYLCYSTEINE 20% 4 ML VIAL NEB ×4 (01:33→20:25)
[2018-11-06] MEDS: ALBUTEROL HFA 8 GM INHALER INH ×4 (01:33→20:25)
[2018-11-06] MEDS: morphine 2 MG INJ IV (02:17)
[2018-11-06 06:34] LABS: Estimated GFR > 60 mL/min (>60)
[2018-11-06 07:01] LABS: ANION GAP 12 (5-13); BLOOD UREA NITROGEN 19 mg/dl (7-20); CALCIUM 7.8 mg/dl (8.4-10.2); CARBON DIOXIDE 15 mmol/L (21-31); CHLORIDE 104 mmol/L (97-110); CREATININE 0.66 mg/dl (0.61-1.24); MAGNESIUM 1.5 mg/dl (1.7-2.5); POTASSIUM 3.3 mmol/L (3.5-5.1); SODIUM 131 mmol/L (135-144)
[2018-11-06 07:14] LABS: GLUCOSE 492 mg/dl (70-220)
[2018-11-06 08:55] LABS: GLUCOSE 87 mg/dl (70-220)
[2018-11-06] MEDS: BACLOFEN 10 MG TAB NGT ×3 (08:56→21:00)
[2018-11-06] MEDS: FAMOTIDINE 20 MG INJ IV ×2 (08:57→22:05)
[2018-11-06] MEDS: BALSAM PERU/CASTOR OIL 60 GM TUBE TOP ×2 (08:58→21:00)
[2018-11-06] MEDS: HEPARIN 5,000 UNIT/1 ML VIAL SC ×2 (08:58→22:48)
[2018-11-06] MEDS: CEFEPIME 1GM/50 ML (PMX) 50 ML IVPB ×2 (08:58→22:05)
[2018-11-06] MEDS: POTASSIUM CHLORIDE 100 ML IVPB (10:30)
[2018-11-06] MEDS: SOD CHLORIDE 0.9% 1,000 ML IV (10:30)
[2018-11-06] MEDS: MAGNESIUM SULFATE 3 GM in DEXTROSE 5% 100 ML IVPB (14:06)
[2018-11-06] MEDS: ACETAMINOPHEN 325 MG TAB PO (15:36)
[2018-11-07] MEDS: IPRATROPIUM (HFA) 12.9 GM INHALER INH ×4 (01:27→21:12)
[2018-11-07] MEDS: ACETYLCYSTEINE 20% 4 ML VIAL NEB ×4 (01:27→21:13)
[2018-11-07] MEDS: ALBUTEROL HFA 8 GM INHALER INH ×4 (01:28→21:13)
[2018-11-07] MEDS: SOD CHLORIDE 0.9% 1,000 ML IV ×2 (05:30→12:26)
[2018-11-07] MEDS: ACCU-CHEK XX ×3 (06:21→18:00)
[2018-11-07 06:24] LABS: WHITE BLOOD COUNT 40.3 10^3/ul (4.8-10.8)
[2018-11-07 06:24] LABS: ABNORMAL IP MESSAGE 1; HEMATOCRIT 37.6 % (42.0-52.0); HEMOGLOBIN 11.8 g/dl (14.0-18.0); MEAN CORPUSCULAR HEMOGLOBIN 23.7 pg (29.0-33.0); MEAN CORPUSCULAR HGB CONC 31.4 g/dl (32.0-37.0); MEAN CORPUSCULAR VOLUME 75.7 fl (82.0-101.0); MEAN PLATELET VOLUME 10.4 fl (7.4-10.4); PLATELET COUNT 423 10^3/UL (140-415); POSITIVE DIFF @See below; RED BLOOD COUNT 4.97 10^6/ul (4.70-6.10); RED CELL DISTRIBUTION WIDTH 18.6 % (11.5-14.5)
[2018-11-07 06:31] LABS: ADD MAN DIFF? YES
[2018-11-07 06:45] LABS: ANION GAP 13 (5-13); BLOOD UREA NITROGEN 29 mg/dl (7-20); CALCIUM 9.1 mg/dl (8.4-10.2); CARBON DIOXIDE 14 mmol/L (21-31); CHLORIDE 109 mmol/L (97-110); CREATININE 1.51 mg/dl (0.61-1.24); Estimated GFR 60 mL/min (>60); GLUCOSE 84 mg/dl (70-220); MAGNESIUM 2.6 mg/dl (1.7-2.5); POTASSIUM 4.2 mmol/L (3.5-5.1); SODIUM 136 mmol/L (135-144)
[2018-11-07 09:21] LABS: ANISOCYTOSIS 1+ (0-0); BAND NEUTROPHILS #M 8.4 10^3/ul (0.0-0.6); BAND NEUTROPHILS % (M) 21 % (0-4); BURR CELLS 1+ (0-0); MONOCYTE #M 2.4 10^3/ul (0.3-0.9); MONOCYTES % (M) 6 % (0-11); MYELOCYTES #M 0.4 10^3/ul (0.0-0.0); MYELOCYTES % (M) 1 % (0-0); PLATELET ESTIMATE NORMAL; POIKILOCYTOSIS 3+ (0-0); PROMYELOCYTES #M 0.8 10^3/ul (0-0); PROMYELOCYTES % (M) 2 % (0-0); REACTIVE LYMPHOCYTES #M 0.8 10^3/ul (0.0-0.0); REACTIVE LYMPHOCYTES% (M) 2 % (0-0); SEG NEUT #M 30.8 10^3/ul (1.6-7.5); SEGMENTED NEUTROPHILS (M) % 68 % (39-77); SMUDGE%M 27 % (0-0)
[2018-11-07] MEDS: FAMOTIDINE 20 MG INJ IV ×2 (09:53→21:29)
[2018-11-07] MEDS: CEFEPIME 1GM/50 ML (PMX) 50 ML IVPB (09:53)
[2018-11-07] MEDS: BALSAM PERU/CASTOR OIL 60 GM TUBE TOP (09:56)
[2018-11-07] MEDS: BACLOFEN 10 MG TAB NGT ×3 (09:58→21:00)
[2018-11-07] MEDS: HEPARIN 5,000 UNIT/1 ML VIAL SC ×2 (10:29→21:35)
[2018-11-07] MEDS ORDERED: VANCOMYCIN IV PER PHARMACY XX (11:00)
[2018-11-07] MEDS: MEROPENEM 1 GM/50ML(PMX) 50 ML IVPB ×2 (12:29→21:30)
[2018-11-07] MEDS: IOHEXOL 14.3 MG(I)/ML (ADULT) BTL PO (13:50)
[2018-11-07] MEDS: VANCOMYCIN HCL 1.5 GM in SOD CHLORIDE 0.9% 250 ML IVPB (14:27)
[2018-11-07] MEDS: ALTEPLASE (CATHFLO) 2 MG INJ CATHETER (16:33)
[2018-11-07] MEDS: DEXTROSE 50% 50 ML SYRINGE IV (18:20)
[2018-11-07] MEDS ORDERED: GLUCAGON 1 MG INJ IM (18:30)
[2018-11-07] MEDS ORDERED: GLUCOSE GEL 15 GRAM TUBE PO ×2 (18:30)
[2018-11-07] MEDS ORDERED: GLUCOSE GEL 15 GRAM TUBE BUCCAL (18:30)
[2018-11-07] MEDS ORDERED: DEXTROSE 50% 50 ML SYRINGE IV ×2 (18:30)
[2018-11-07] MEDS ORDERED: ROCURONIUM 50 MG INJ (19:12)
[2018-11-07] MEDS ORDERED: PHENYLephrine (100 MCG/ML) 10ML SYG (19:45)
[2018-11-07] MEDS ORDERED: VASOPRESSIN 20 UNITS INJ (19:45)
[2018-11-07] MEDS ORDERED: NEOSTIGMINE 3 MG/3 ML SYRINGE (19:53)
[2018-11-07] MEDS ORDERED: GLYCOPYRROLATE 0.4 MG INJ (19:53)
[2018-11-07 20:25] LABS: WHITE BLOOD COUNT 43.1 10^3/ul (4.8-10.8)
[2018-11-07 20:25] LABS: ABNORMAL IP MESSAGE 1; HEMATOCRIT 38.3 % (42.0-52.0); HEMOGLOBIN 12.1 g/dl (14.0-18.0); MEAN CORPUSCULAR HEMOGLOBIN 24.1 pg (29.0-33.0); MEAN CORPUSCULAR HGB CONC 31.6 g/dl (32.0-37.0); MEAN CORPUSCULAR VOLUME 76.3 fl (82.0-101.0); MEAN PLATELET VOLUME 9.7 fl (7.4-10.4); PLATELET COUNT 486 10^3/UL (140-415); POSITIVE DIFF @See below; RED BLOOD COUNT 5.02 10^6/ul (4.70-6.10); RED CELL DISTRIBUTION WIDTH 18.6 % (11.5-14.5)
[2018-11-07 20:28] LABS: ADD MAN DIFF? YES
[2018-11-07] MEDS ORDERED: morphine 2 MG INJ IV (20:30)
[2018-11-07] MEDS ORDERED: FENTAnyl 50 MCG/ML VIAL IV (20:30)
[2018-11-07] MEDS ORDERED: EPHEDrine 25 MG/5 ML SYG IV (20:30)
[2018-11-07] MEDS ORDERED: HYDROmorphONE 0.5 MG/0.5 ML SYG IV (20:30)
[2018-11-07] MEDS ORDERED: ONDANSETRON 4 MG INJ IV (20:30)
[2018-11-07] MEDS: morphine 2 MG INJ IV (20:32)
[2018-11-07 21:55] LABS: ANISOCYTOSIS 1+ (0-0); BAND NEUTROPHILS #M 1.7 10^3/ul (0.0-0.6); BAND NEUTROPHILS % (M) 4 % (0-4); BURR CELLS 2+ (0-0); MONOCYTE #M 1.2 10^3/ul (0.3-0.9); MONOCYTES % (M) 3 % (0-11); MYELOCYTES #M 0.4 10^3/ul (0.0-0.0); MYELOCYTES % (M) 1 % (0-0); PLATELET ESTIMATE NORMAL; POIKILOCYTOSIS 3+ (0-0); PROMYELOCYTES #M 0.8 10^3/ul (0-0); PROMYELOCYTES % (M) 2 % (0-0); SEG NEUT #M 39.5 10^3/ul (1.6-7.5); SEGMENTED NEUTROPHILS (M) % 90 % (39-77)
[2018-11-07] MEDS: NORepinephrine 8MG/250 ML (PMX 250 ML IV (23:27)
[2018-11-07 23:28] LABS: AADO2 Arterial 444.5 mmHg (7.0-24.0); Arterial Base Excess -15.6 mmol/L (-3.0-3); Arterial Blood Gas Oxygen Sat 99.3 mmHG (95.0-98.0); Arterial COHb 0 % (0.0-3.0); Arterial Fraction of Oxyhgb 98.7 % (93.0-99.0); Arterial HCO3 12.3 mmol/L (22.0-26.0); Arterial MetHb 0.6 % (0.0-1.5); MODE VENT - AC; Site A-Line
[2018-11-08] MEDS: BALSAM PERU/CASTOR OIL 60 GM TUBE TOP ×3 (01:29→21:30)
[2018-11-08 01:59] LABS: Arterial Base Excess -16.9 mmol/L (-3.0-3); Arterial Blood Gas Oxygen Sat 99.5 mmHG (95.0-98.0); Arterial COHb 0.3 % (0.0-3.0); Arterial Fraction of Oxyhgb 98.6 % (93.0-99.0); Arterial HCO3 10.8 mmol/L (22.0-26.0); Arterial MetHb 0.6 % (0.0-1.5); Arterial pCO2 31.7 mmhg (35-45); MODE VENT - AC/VC+; Site A-Line
[2018-11-08] MEDS: ALBUTEROL HFA 8 GM INHALER INH ×4 (02:10→19:39)
[2018-11-08] MEDS: IPRATROPIUM (HFA) 12.9 GM INHALER INH ×4 (02:10→19:39)
[2018-11-08] MEDS: ACETYLCYSTEINE 20% 4 ML VIAL NEB ×4 (02:10→19:40)
[2018-11-08] MEDS: NA BICARBONATE 8.4% 50 ML SYG IV (02:22)
[2018-11-08] MEDS: SOD CHLORIDE 0.9% 1,000 ML IV (02:23)
[2018-11-08 02:32] LABS: ABNORMAL IP MESSAGE 1; HEMATOCRIT 42.3 % (42.0-52.0); HEMOGLOBIN 13.1 g/dl (14.0-18.0); MEAN CORPUSCULAR VOLUME 77.5 fl (82.0-101.0); MEAN PLATELET VOLUME 10.1 fl (7.4-10.4); PLATELET COUNT 596 10^3/UL (140-415); POSITIVE DIFF @See below; RED BLOOD COUNT 5.46 10^6/ul (4.70-6.10); RED CELL DISTRIBUTION WIDTH 19.3 % (11.5-14.5)
[2018-11-08 02:32] LABS: WHITE BLOOD COUNT 61.8 10^3/ul (4.8-10.8)
[2018-11-08 02:50] LABS: MAGNESIUM 2.3 mg/dl (1.7-2.5)
[2018-11-08 02:50] LABS: ANION GAP 11 (5-13); Estimated GFR > 60 mL/min (>60)
[2018-11-08 02:51] LABS: BLOOD UREA NITROGEN 35 mg/dl (7-20); CALCIUM 8.1 mg/dl (8.4-10.2); CARBON DIOXIDE 12 mmol/L (21-31); CHLORIDE 114 mmol/L (97-110); CREATININE 1.27 mg/dl (0.61-1.24); GLUCOSE 76 mg/dl (70-220); POTASSIUM 4.4 mmol/L (3.5-5.1); SODIUM 137 mmol/L (135-144)
[2018-11-08 02:57] LABS: ADD MAN DIFF? YES
[2018-11-08 03:25] LABS: PREALBUMIN 8.2 mg/dl (17.6-36.0)
[2018-11-08 03:29] LABS: ANISOCYTOSIS 1+ (0-0); BAND NEUTROPHILS #M 9.2 10^3/ul (0.0-0.6); BAND NEUTROPHILS % (M) 15 % (0-4); BURR CELLS 1+ (0-0); GIANT THROMBO% (M) 1 % (0-0); LYMPHOCYTES #M 1.2 10^3/ul (0.8-2.9); LYMPHOCYTES % (M) 2 % (15-51); MONOCYTE #M 1.8 10^3/ul (0.3-0.9); MONOCYTES % (M) 3 % (0-11); PLATELET ESTIMATE INCREASED; POIKILOCYTOSIS 3+ (0-0); SEG NEUT #M 55.1 10^3/ul (1.6-7.5); SEGMENTED NEUTROPHILS (M) % 80 % (39-77); SMUDGE%M 24 % (0-0)
[2018-11-08 03:40] LABS: LACTIC ACID 0.9 mmol/L (0.5-2.0)
[2018-11-08 03:45] LABS: INR 1.48; PARTIAL THROMBOPLASTIN TIME 33.8 Sec (23.0-35.0); PT RATIO 1.4; THROMBIN TIME 16.7 SEC (13.8-19.1)
[2018-11-08 04:05] LABS: PLATELET COUNT 542 10^3/UL (140-415)
[2018-11-08 05:34] LABS: AADO2 Arterial 296.2 mmHg (7.0-24.0); Arterial Base Excess -11.3 mmol/L (-3.0-3); Arterial Blood Gas Oxygen Sat 96.8 mmHG (95.0-98.0); Arterial COHb 0.4 % (0.0-3.0); Arterial Fraction of Oxyhgb 95.9 % (93.0-99.0); Arterial HCO3 15.4 mmol/L (22.0-26.0); Arterial MetHb 0.5 % (0.0-1.5); Arterial pCO2 37.6 mmhg (35-45); MODE VENT - AC; Site A-Line
[2018-11-08] MEDS: ACCU-CHEK XX ×4 (06:00→21:00)
[2018-11-08] MEDS ORDERED: SODIUM BICARBONATE (IV ADD) 150 MEQ in DEXTROSE 5% 850 ML IV (08:00)
[2018-11-08] MEDS: SODIUM BICARBONATE IN D5W 1,000 ML IV (08:47)
[2018-11-08] MEDS: FAMOTIDINE 20 MG INJ IV ×2 (08:47→21:29)
[2018-11-08] MEDS: MEROPENEM 1 GM/50ML(PMX) 50 ML IVPB ×2 (08:47→20:14)
[2018-11-08] MEDS: BACLOFEN 10 MG TAB NGT ×3 (09:00→20:15)
[2018-11-08] MEDS: HEPARIN 5,000 UNIT/1 ML VIAL SC ×2 (09:06→20:17)
[2018-11-08 09:55] LABS: ALANINE AMINOTRANSFERASE 37 IU/L (13-69); ALBUMIN 2.5 g/dl (3.3-4.9); ALBUMIN/GLOBULIN RATIO 0.75; ALKALINE PHOSPHATASE 152 IU/L (42-121); ANION GAP 9 (5-13); ASPARTATE AMINO TRANSFERASE 24 IU/L (15-46); BILIRUBIN,INDIRECT 0.3 mg/dl (0-1.1); BILIRUBIN,TOTAL 0.3 mg/dl (0.2-1.3); BLOOD UREA NITROGEN 35 mg/dl (7-20); CALCIUM 9.6 mg/dl (8.4-10.2); CARBON DIOXIDE 19 mmol/L (21-31); CHLORIDE 115 mmol/L (97-110); CREATININE 1.08 mg/dl (0.61-1.24); Estimated GFR > 60 mL/min (>60); GLUCOSE 103 mg/dl (70-220); MAGNESIUM 2.2 mg/dl (1.7-2.5); PHOSPHORUS 3.9 mg/dl (2.5-4.9); POTASSIUM 4.1 mmol/L (3.5-5.1); SODIUM 143 mmol/L (135-144); TOTAL PROTEIN 5.8 g/dl (6.1-8.1); TRIGLYCERIDES 84 mg/dl (0-149)
[2018-11-08 10:14] LABS: PREALBUMIN 6.6 mg/dl (17.6-36.0)
[2018-11-08] MEDS: NORepinephrine 8MG/250 ML (PMX 250 ML IV (12:15)
[2018-11-08] MEDS: PHENYLephrine 80 MG in DEXTROSE 5% 242 ML IV ×2 (13:38→21:13)
[2018-11-08] MEDS: ALBUMIN HUMAN 25% 100 ML IV (14:04)
[2018-11-08] MEDS: metroNIDAZOLE 500 MG/NS (PMX) 100 ML IVPB ×2 (14:09→21:29)
[2018-11-08] MEDS: VANCOMYCIN 1.25 GM/NS 250 ML 250 ML IVPB (14:09)
[2018-11-08] MEDS: CASPOFUNGIN 70 MG in SOD CHLORIDE 0.9% 250 ML IVPB (15:42)
[2018-11-08] MEDS ORDERED: TPN 1,000 ML IV (16:00)
[2018-11-08] MEDS: TPN 1,000 ML IV (16:17)
[2018-11-08] MEDS: NORepinephrine 32 MG in DEXTROSE 5% 218 ML IV (18:18)
[2018-11-08] MEDS: VASOPRESSIN 60 UNIT in DEXTROSE 5% 57 ML IV (20:00)
[2018-11-09] MEDS: ACCU-CHEK XX ×6 (01:00→20:50)
[2018-11-09] MEDS: ALBUTEROL HFA 8 GM INHALER INH ×4 (01:22→19:43)
[2018-11-09] MEDS: ACETYLCYSTEINE 20% 4 ML VIAL NEB ×4 (01:22→19:46)
[2018-11-09] MEDS: IPRATROPIUM (HFA) 12.9 GM INHALER INH ×4 (01:22→19:44)
[2018-11-09] MEDS: PHENYLephrine 80 MG in DEXTROSE 5% 242 ML IV ×2 (03:49→14:04)
[2018-11-09] MEDS: metroNIDAZOLE 500 MG/NS (PMX) 100 ML IVPB ×2 (05:43→14:08)
[2018-11-09 05:58] LABS: ANION GAP 11 (5-13); BLOOD UREA NITROGEN 44 mg/dl (7-20); CALCIUM 7.7 mg/dl (8.4-10.2); CARBON DIOXIDE 20 mmol/L (21-31); CHLORIDE 108 mmol/L (97-110); CREATININE 1.62 mg/dl (0.61-1.24); Estimated GFR 55 mL/min (>60); GLUCOSE 142 mg/dl (70-220); MAGNESIUM 2.2 mg/dl (1.7-2.5); PHOSPHORUS 3.7 mg/dl (2.5-4.9); POTASSIUM 3.4 mmol/L (3.5-5.1); SODIUM 139 mmol/L (135-144)
[2018-11-09] MEDS: VASOPRESSIN 60 UNIT in DEXTROSE 5% 57 ML IV ×2 (08:00→20:00)
[2018-11-09] MEDS: FAMOTIDINE 20 MG INJ IV ×2 (08:43→20:50)
[2018-11-09] MEDS: BACLOFEN 10 MG TAB NGT ×5 (08:43→20:37)
[2018-11-09] MEDS: MEROPENEM 1 GM/50ML(PMX) 50 ML IVPB ×2 (08:44→20:50)
[2018-11-09] MEDS: HEPARIN 5,000 UNIT/1 ML VIAL SC ×2 (08:45→20:57)
[2018-11-09] MEDS: BALSAM PERU/CASTOR OIL 60 GM TUBE TOP ×2 (08:46→20:50)
[2018-11-09] MEDS: TPN 1,000 ML IV (08:48)
[2018-11-09 10:36] LABS: ADD MAN DIFF? NO
[2018-11-09 10:38] LABS: WHITE BLOOD COUNT 33.1 10^3/ul (4.8-10.8)
[2018-11-09 10:38] LABS: ABNORMAL IP MESSAGE 1; BASOPHIL # 0.1 10^3/ul (0.0-0.1); BASOPHILS % 0.2 % (0.0-2.0); LYMPHOCYTES # 1.4 10^3/ul (0.8-2.9); LYMPHOCYTES % 4.2 % (15.0-51.0); MEAN CORPUSCULAR HEMOGLOBIN 24.3 pg (29.0-33.0); MEAN CORPUSCULAR HGB CONC 32.5 g/dl (32.0-37.0); MEAN CORPUSCULAR VOLUME 74.8 fl (82.0-101.0); MEAN PLATELET VOLUME 10.4 fl (7.4-10.4); MONOCYTES % 9.1 % (0.0-11.0); NEUTROPHIL # 27.6 10^3/ul (1.6-7.5); NEUTROPHILS % 83.3 % (39.0-77.0); PLATELET COUNT 356 10^3/UL (140-415); POSITIVE DIFF @See below; RED BLOOD COUNT 2.14 10^6/ul (4.70-6.10); RED CELL DISTRIBUTION WIDTH 18.4 % (11.5-14.5)
[2018-11-09 10:49] LABS: HEMOGLOBIN 5.2 g/dl (14.0-18.0)
[2018-11-09] MEDS: POTASSIUM CHLORIDE 100 ML IVPB (11:24)
[2018-11-09 11:49] LABS: ANISOCYTOSIS 1+ (0-0); BAND NEUTROPHILS #M 2.6 10^3/ul (0.0-0.6); BAND NEUTROPHILS % (M) 8 % (0-4); BURR CELLS 1+ (0-0); GIANT THROMBO% (M) 2 % (0-0); HYPOCHROMASIA 1+ (0-0); LYMPHOCYTES #M 1.3 10^3/ul (0.8-2.9); LYMPHOCYTES % (M) 4 % (15-51); MONOCYTE #M 1.9 10^3/ul (0.3-0.9); MONOCYTES % (M) 6 % (0-11); PLATELET ESTIMATE NORMAL; POIKILOCYTOSIS 1+ (0-0); POLYCHROMASIA 3+ (0-0); SEGMENTED NEUTROPHILS (M) % 82 % (39-77); TARGET CELLS 1+ (0-0)
[2018-11-09] MEDS: DEXTROSE 5%-0.45% NACL 1,000 ML IV (13:06)
[2018-11-09] MEDS: VANCOMYCIN 1.25 GM/NS 250 ML 250 ML IVPB (14:07)
[2018-11-09] MEDS: CASPOFUNGIN 50 MG in SOD CHLORIDE 0.9% 250 ML IVPB (15:50)
[2018-11-09 17:57] LABS: ADD MAN DIFF? NO
[2018-11-09 17:59] LABS: ABNORMAL IP MESSAGE 1; BASOPHIL # 0.1 10^3/ul (0.0-0.1); BASOPHILS % 0.2 % (0.0-2.0); HEMATOCRIT 20.1 % (42.0-52.0); LYMPHOCYTES # 1.2 10^3/ul (0.8-2.9); LYMPHOCYTES % 4.2 % (15.0-51.0); MEAN CORPUSCULAR HEMOGLOBIN 26.5 pg (29.0-33.0); MEAN CORPUSCULAR HGB CONC 34.3 g/dl (32.0-37.0); MEAN CORPUSCULAR VOLUME 77.3 fl (82.0-101.0); MONOCYTE # 2.5 10^3/ul (0.3-0.9); MONOCYTES % 8.5 % (0.0-11.0); NEUTROPHIL # 24.6 10^3/ul (1.6-7.5); NEUTROPHILS % 83.8 % (39.0-77.0); PLATELET COUNT 256 10^3/UL (140-415); POSITIVE DIFF @See below; RED CELL DISTRIBUTION WIDTH 17.6 % (11.5-14.5)
[2018-11-09 17:59] LABS: WHITE BLOOD COUNT 29.3 10^3/ul (4.8-10.8)
[2018-11-09 18:05] LABS: HEMOGLOBIN 6.9 g/dl (14.0-18.0)
[2018-11-09 21:04] LABS: IMMEDIATE SPIN CROSSMATCH 1 4
[2018-11-10] MEDS: ACCU-CHEK XX ×6 (01:00→21:00)
[2018-11-10] MEDS: TPN 1,000 ML IV ×2 (01:36→17:16)
[2018-11-10] MEDS: ACETYLCYSTEINE 20% 4 ML VIAL NEB ×4 (01:43→19:25)
[2018-11-10] MEDS: ALBUTEROL HFA 8 GM INHALER INH ×4 (01:43→19:24)
[2018-11-10] MEDS: IPRATROPIUM (HFA) 12.9 GM INHALER INH ×4 (01:43→19:24)
[2018-11-10 04:51] LABS: ADD MAN DIFF? NO
[2018-11-10 05:01] LABS: WHITE BLOOD COUNT 27.6 10^3/ul (4.8-10.8)
[2018-11-10 05:01] LABS: ABNORMAL IP MESSAGE 1; BASOPHIL # 0.1 10^3/ul (0.0-0.1); BASOPHILS % 0.3 % (0.0-2.0); EOSINOPHILS % 0.1 % (0.0-7.0); HEMATOCRIT 24.1 % (42.0-52.0); HEMOGLOBIN 8.4 g/dl (14.0-18.0); LYMPHOCYTES % 3.6 % (15.0-51.0); MEAN CORPUSCULAR HEMOGLOBIN 27.5 pg (29.0-33.0); MEAN CORPUSCULAR HGB CONC 34.9 g/dl (32.0-37.0); MEAN CORPUSCULAR VOLUME 78.8 fl (82.0-101.0); MEAN PLATELET VOLUME 10.3 fl (7.4-10.4); MONOCYTES % 7.3 % (0.0-11.0); NEUTROPHIL # 23.9 10^3/ul (1.6-7.5); NEUTROPHILS % 86.7 % (39.0-77.0); PLATELET COUNT 225 10^3/UL (140-415); POSITIVE DIFF @See below; RED BLOOD COUNT 3.06 10^6/ul (4.70-6.10); RED CELL DISTRIBUTION WIDTH 17.3 % (11.5-14.5)
[2018-11-10 05:08] LABS: ANION GAP 9 (5-13); BLOOD UREA NITROGEN 44 mg/dl (7-20); CALCIUM 7.6 mg/dl (8.4-10.2); CARBON DIOXIDE 25 mmol/L (21-31); CHLORIDE 108 mmol/L (97-110); CREATININE 1.08 mg/dl (0.61-1.24); Estimated GFR > 60 mL/min (>60); GLUCOSE 128 mg/dl (70-220); MAGNESIUM 2.1 mg/dl (1.7-2.5); PHOSPHORUS 2.1 mg/dl (2.5-4.9); POTASSIUM 3.1 mmol/L (3.5-5.1); SODIUM 142 mmol/L (135-144)
[2018-11-10] MEDS: VASOPRESSIN 60 UNIT in DEXTROSE 5% 57 ML IV ×2 (07:56→19:14)
[2018-11-10] MEDS: DEXTROSE 5%-0.45% NACL 1,000 ML IV ×2 (07:57→21:15)
[2018-11-10] MEDS: BACLOFEN 10 MG TAB NGT ×3 (07:58→20:57)
[2018-11-10] MEDS: MEROPENEM 1 GM/50ML(PMX) 50 ML IVPB ×2 (08:00→20:57)
[2018-11-10] MEDS: FAMOTIDINE 20 MG INJ IV ×2 (08:00→20:57)
[2018-11-10] MEDS: HEPARIN 5,000 UNIT/1 ML VIAL SC ×2 (08:01→21:02)
[2018-11-10] MEDS: BALSAM PERU/CASTOR OIL 60 GM TUBE TOP ×2 (08:05→20:57)
[2018-11-10] MEDS: POTASSIUM PHOSPHATE 15 MM in SOD CHLORIDE 0.9% 250 ML IVPB (11:33)
[2018-11-10] MEDS: VANCOMYCIN 1.25 GM/NS 250 ML 250 ML IVPB (13:00)
[2018-11-10 13:22] LABS: VANCOMYCIN,TROUGH 20.9 ug/ml (10.0-20.0)
[2018-11-10] MEDS: CASPOFUNGIN 50 MG in SOD CHLORIDE 0.9% 250 ML IVPB (14:29)
[2018-11-10] MEDS: VANCOMYCIN 1 GM 250 ML IVPB (22:48)
[2018-11-11] MEDS: ACCU-CHEK XX ×6 (01:00→21:00)
[2018-11-11] MEDS: IPRATROPIUM (HFA) 12.9 GM INHALER INH ×5 (01:25→20:02)
[2018-11-11] MEDS: ALBUTEROL HFA 8 GM INHALER INH ×5 (01:25→20:02)
[2018-11-11] MEDS: ACETYLCYSTEINE 20% 4 ML VIAL NEB ×4 (01:25→20:00)
[2018-11-11 05:23] LABS: ADD MAN DIFF? NO
[2018-11-11 05:27] LABS: WHITE BLOOD COUNT 26.4 10^3/ul (4.8-10.8)
[2018-11-11 05:27] LABS: ABNORMAL IP MESSAGE 1; BASOPHIL # 0.1 10^3/ul (0.0-0.1); BASOPHILS % 0.2 % (0.0-2.0); HEMATOCRIT 23.2 % (42.0-52.0); HEMOGLOBIN 8.1 g/dl (14.0-18.0); LYMPHOCYTES % 3.9 % (15.0-51.0); MEAN CORPUSCULAR HEMOGLOBIN 27.6 pg (29.0-33.0); MEAN CORPUSCULAR HGB CONC 34.9 g/dl (32.0-37.0); MEAN CORPUSCULAR VOLUME 79.2 fl (82.0-101.0); MEAN PLATELET VOLUME 10.1 fl (7.4-10.4); MONOCYTE # 1.9 10^3/ul (0.3-0.9); MONOCYTES % 7.1 % (0.0-11.0); NEUTROPHILS % 86.9 % (39.0-77.0); PLATELET COUNT 191 10^3/UL (140-415); POSITIVE DIFF @See below; RED BLOOD COUNT 2.93 10^6/ul (4.70-6.10); RED CELL DISTRIBUTION WIDTH 17.5 % (11.5-14.5)
[2018-11-11 05:49] LABS: ANION GAP 7 (5-13); BLOOD UREA NITROGEN 39 mg/dl (7-20); CALCIUM 7.6 mg/dl (8.4-10.2); CARBON DIOXIDE 32 mmol/L (21-31); CHLORIDE 107 mmol/L (97-110); CREATININE 0.83 mg/dl (0.61-1.24); Estimated GFR > 60 mL/min (>60); GLUCOSE 120 mg/dl (70-220); MAGNESIUM 1.9 mg/dl (1.7-2.5); PHOSPHORUS 2.3 mg/dl (2.5-4.9); SODIUM 146 mmol/L (135-144)
[2018-11-11 06:24] LABS: POTASSIUM 2.8 mmol/L (3.5-5.1)
[2018-11-11] MEDS: POTASSIUM CHLORIDE 50 ML IVPB ×3 (06:45→11:47)
[2018-11-11] MEDS: VASOPRESSIN 60 UNIT in DEXTROSE 5% 57 ML IV ×2 (08:00→20:00)
[2018-11-11] MEDS: FAMOTIDINE 20 MG INJ IV ×2 (08:30→21:20)
[2018-11-11] MEDS: BACLOFEN 10 MG TAB NGT ×3 (08:30→21:20)
[2018-11-11] MEDS: BALSAM PERU/CASTOR OIL 60 GM TUBE TOP ×2 (08:35→21:22)
[2018-11-11] MEDS: MEROPENEM 1 GM/50ML(PMX) 50 ML IVPB ×2 (08:35→21:21)
[2018-11-11] MEDS: HEPARIN 5,000 UNIT/1 ML VIAL SC ×2 (08:35→21:32)
[2018-11-11] MEDS: TPN 1,000 ML IV (11:47)
[2018-11-11] MEDS: DEXTROSE 5%-0.45% NACL 1,000 ML IV (11:48)
[2018-11-11] MEDS: CASPOFUNGIN 50 MG in SOD CHLORIDE 0.9% 250 ML IVPB (14:59)
[2018-11-11] MEDS: VANCOMYCIN 1 GM 250 ML IVPB (22:53)
[2018-11-12] MEDS: ACCU-CHEK XX ×6 (00:32→20:56)
[2018-11-12] MEDS: ALBUTEROL HFA 8 GM INHALER INH ×4 (01:55→19:58)
[2018-11-12] MEDS: IPRATROPIUM (HFA) 12.9 GM INHALER INH ×4 (01:55→19:58)
[2018-11-12] MEDS: ACETYLCYSTEINE 20% 4 ML VIAL NEB ×4 (02:00→20:00)
[2018-11-12] MEDS: TPN 1,000 ML IV ×2 (03:17→20:57)
[2018-11-12] MEDS: DEXTROSE 5%-0.45% NACL 1,000 ML IV (05:15)
[2018-11-12 05:44] LABS: ANION GAP 5 (5-13); BLOOD UREA NITROGEN 34 mg/dl (7-20); CALCIUM 7.7 mg/dl (8.4-10.2); CARBON DIOXIDE 36 mmol/L (21-31); CHLORIDE 107 mmol/L (97-110); CREATININE 0.76 mg/dl (0.61-1.24); Estimated GFR > 60 mL/min (>60); GLUCOSE 101 mg/dl (70-220); MAGNESIUM 1.8 mg/dl (1.7-2.5); PHOSPHORUS 2.1 mg/dl (2.5-4.9); SODIUM 148 mmol/L (135-144)
[2018-11-12 06:03] LABS: POTASSIUM 2.7 mmol/L (3.5-5.1)
[2018-11-12] MEDS: POTASSIUM CHLORIDE 50 ML IVPB ×3 (07:08→12:22)
[2018-11-12] MEDS: VASOPRESSIN 60 UNIT in DEXTROSE 5% 57 ML IV ×2 (08:00→20:00)
[2018-11-12] MEDS: FAMOTIDINE 20 MG INJ IV ×2 (08:38→20:56)
[2018-11-12] MEDS: MEROPENEM 1 GM/50ML(PMX) 50 ML IVPB ×2 (08:38→20:57)
[2018-11-12] MEDS: HEPARIN 5,000 UNIT/1 ML VIAL SC ×2 (08:47→21:00)
[2018-11-12] MEDS: BALSAM PERU/CASTOR OIL 60 GM TUBE TOP ×2 (08:48→21:02)
[2018-11-12] MEDS: BACLOFEN 10 MG TAB NGT ×3 (08:48→20:56)
[2018-11-12 10:51] LABS: ADD MAN DIFF? NO
[2018-11-12 10:54] LABS: WHITE BLOOD COUNT 22.1 10^3/ul (4.8-10.8)
[2018-11-12 10:54] LABS: ABNORMAL IP MESSAGE 1; BASOPHIL # 0.1 10^3/ul (0.0-0.1); BASOPHILS % 0.2 % (0.0-2.0); HEMATOCRIT 24.7 % (42.0-52.0); LYMPHOCYTES # 1.2 10^3/ul (0.8-2.9); LYMPHOCYTES % 5.6 % (15.0-51.0); MEAN CORPUSCULAR HEMOGLOBIN 26.9 pg (29.0-33.0); MEAN CORPUSCULAR HGB CONC 32.4 g/dl (32.0-37.0); MEAN CORPUSCULAR VOLUME 83.2 fl (82.0-101.0); MEAN PLATELET VOLUME 10.4 fl (7.4-10.4); MONOCYTE # 1.9 10^3/ul (0.3-0.9); MONOCYTES % 8.5 % (0.0-11.0); NEUTROPHIL # 18.5 10^3/ul (1.6-7.5); NEUTROPHILS % 83.7 % (39.0-77.0); PLATELET COUNT 201 10^3/UL (140-415); POSITIVE DIFF @See below; RED BLOOD COUNT 2.97 10^6/ul (4.70-6.10); RED CELL DISTRIBUTION WIDTH 18.5 % (11.5-14.5)
[2018-11-12] MEDS ORDERED: VANCOMYCIN IV PER PHARMACY XX (13:00)
[2018-11-12] MEDS: CASPOFUNGIN 50 MG in SOD CHLORIDE 0.9% 250 ML IVPB (15:09)
[2018-11-12] MEDS: VANCOMYCIN 1 GM 250 ML IVPB (22:51)
[2018-11-13] MEDS: ACCU-CHEK XX ×5 (00:28→21:00)
[2018-11-13] MEDS: ALBUTEROL HFA 8 GM INHALER INH ×2 (01:24→07:41)
[2018-11-13] MEDS: IPRATROPIUM (HFA) 12.9 GM INHALER INH ×2 (01:24→07:42)
[2018-11-13] MEDS: ACETYLCYSTEINE 20% 4 ML VIAL NEB ×2 (01:46→07:42)
[2018-11-13 05:00] LABS: ADD MAN DIFF? NO
[2018-11-13 05:02] LABS: WHITE BLOOD COUNT 18.3 10^3/ul (4.8-10.8)
[2018-11-13 05:02] LABS: BASOPHILS % 0.1 % (0.0-2.0); EOSINOPHILS % 0.1 % (0.0-7.0); HEMATOCRIT 26.3 % (42.0-52.0); HEMOGLOBIN 8.1 g/dl (14.0-18.0); LYMPHOCYTES # 1.2 10^3/ul (0.8-2.9); LYMPHOCYTES % 6.6 % (15.0-51.0); MEAN CORPUSCULAR HEMOGLOBIN 26.5 pg (29.0-33.0); MEAN CORPUSCULAR HGB CONC 30.8 g/dl (32.0-37.0); MEAN CORPUSCULAR VOLUME 85.9 fl (82.0-101.0); MEAN PLATELET VOLUME 11.1 fl (7.4-10.4); MONOCYTE # 1.4 10^3/ul (0.3-0.9); MONOCYTES % 7.9 % (0.0-11.0); NEUTROPHIL # 15.1 10^3/ul (1.6-7.5); NEUTROPHILS % 82.4 % (39.0-77.0); PLATELET COUNT 230 10^3/UL (140-415); RED BLOOD COUNT 3.06 10^6/ul (4.70-6.10); RED CELL DISTRIBUTION WIDTH 19.7 % (11.5-14.5)
[2018-11-13 05:20] LABS: ANION GAP 6 (5-13); BLOOD UREA NITROGEN 32 mg/dl (7-20); CALCIUM 7.6 mg/dl (8.4-10.2); CARBON DIOXIDE 32 mmol/L (21-31); CHLORIDE 110 mmol/L (97-110); CREATININE 0.71 mg/dl (0.61-1.24); Estimated GFR > 60 mL/min (>60); GLUCOSE 109 mg/dl (70-220); MAGNESIUM 1.7 mg/dl (1.7-2.5); PHOSPHORUS 2.7 mg/dl (2.5-4.9); POTASSIUM 3.4 mmol/L (3.5-5.1); SODIUM 148 mmol/L (135-144)
[2018-11-13] MEDS: VASOPRESSIN 60 UNIT in DEXTROSE 5% 57 ML IV ×2 (08:00→20:00)
[2018-11-13] MEDS: BALSAM PERU/CASTOR OIL 60 GM TUBE TOP ×2 (08:33→21:00)
[2018-11-13] MEDS: MEROPENEM 1 GM/50ML(PMX) 50 ML IVPB ×2 (08:33→22:10)
[2018-11-13] MEDS: FAMOTIDINE 20 MG INJ IV (08:33)
[2018-11-13] MEDS: BACLOFEN 10 MG TAB NGT ×3 (08:33→21:00)
[2018-11-13] MEDS: HEPARIN 5,000 UNIT/1 ML VIAL SC ×2 (08:47→22:14)
[2018-11-13] MEDS: POLYETHYLENE GLYCOL 17 GM PACKET PO ×2 (10:00→21:00)
[2018-11-13] MEDS ORDERED: NA PHOSPHATE/BIPHOS 133 ML ENEMA PR (10:00)
[2018-11-13] MEDS: POTASSIUM CHLORIDE 20 MEQ /SW 100 ML IVPB (11:36)
[2018-11-13] MEDS: CASPOFUNGIN 50 MG in SOD CHLORIDE 0.9% 250 ML IVPB (16:32)
[2018-11-13] MEDS: TPN 1,000 ML IV (16:52)
[2018-11-13 22:41] LABS: VANCOMYCIN,TROUGH 15.7 ug/ml (10.0-20.0)
[2018-11-14] MEDS: VANCOMYCIN 1 GM 250 ML IVPB (00:47)
[2018-11-14] MEDS: ACCU-CHEK XX ×2 (03:00→09:30)
[2018-11-14] MEDS: TPN 1,000 ML IV (05:20)
[2018-11-14 06:12] LABS: ANION GAP 6 (5-13); BLOOD UREA NITROGEN 30 mg/dl (7-20); CALCIUM 7.4 mg/dl (8.4-10.2); CARBON DIOXIDE 28 mmol/L (21-31); CHLORIDE 117 mmol/L (97-110); CREATININE 0.73 mg/dl (0.61-1.24); Estimated GFR > 60 mL/min (>60); GLUCOSE 81 mg/dl (70-220); MAGNESIUM 1.8 mg/dl (1.7-2.5); PHOSPHORUS 2.7 mg/dl (2.5-4.9); POTASSIUM 3.5 mmol/L (3.5-5.1); SODIUM 151 mmol/L (135-144)
[2018-11-14] MEDS: BACLOFEN 10 MG TAB NGT ×4 (09:00→20:43)
[2018-11-14 09:15] LABS: ADD MAN DIFF? NO
[2018-11-14 09:21] LABS: BASOPHILS % 0.1 % (0.0-2.0); EOSINOPHILS % 0.1 % (0.0-7.0); HEMATOCRIT 27.7 % (42.0-52.0); HEMOGLOBIN 8.4 g/dl (14.0-18.0); LYMPHOCYTES # 1.4 10^3/ul (0.8-2.9); LYMPHOCYTES % 6.8 % (15.0-51.0); MEAN CORPUSCULAR HEMOGLOBIN 26.2 pg (29.0-33.0); MEAN CORPUSCULAR HGB CONC 30.3 g/dl (32.0-37.0); MEAN CORPUSCULAR VOLUME 86.3 fl (82.0-101.0); MEAN PLATELET VOLUME 11.5 fl (7.4-10.4); MONOCYTE # 1.4 10^3/ul (0.3-0.9); MONOCYTES % 6.7 % (0.0-11.0); NEUTROPHIL # 17.1 10^3/ul (1.6-7.5); NEUTROPHILS % 83.9 % (39.0-77.0); PLATELET COUNT 271 10^3/UL (140-415); RED BLOOD COUNT 3.21 10^6/ul (4.70-6.10)
[2018-11-14 09:21] LABS: WHITE BLOOD COUNT 20.4 10^3/ul (4.8-10.8)
[2018-11-14] MEDS: MEROPENEM 1 GM/50ML(PMX) 50 ML IVPB ×2 (09:31→20:43)
[2018-11-14] MEDS: HEPARIN 5,000 UNIT/1 ML VIAL SC ×2 (09:36→20:44)
[2018-11-14] MEDS: DEXTROSE 5% 1,000 ML IV (11:21)
[2018-11-14] MEDS: POLYETHYLENE GLYCOL 17 GM PACKET PO ×2 (13:48→20:43)
[2018-11-14] MEDS: BALSAM PERU/CASTOR OIL 60 GM TUBE TOP ×2 (13:49→20:45)
[2018-11-14] MEDS: CASPOFUNGIN 50 MG in SOD CHLORIDE 0.9% 250 ML IVPB (15:31)
[2018-11-15] MEDS: VANCOMYCIN 1 GM 250 ML IVPB ×2 (00:20→22:40)
[2018-11-15] MEDS: LORAZEPAM 2 MG INJ IV (03:28)
[2018-11-15 06:07] LABS: ADD MAN DIFF? NO
[2018-11-15 06:12] LABS: WHITE BLOOD COUNT 21.4 10^3/ul (4.8-10.8)
[2018-11-15 06:12] LABS: BASOPHILS % 0.1 % (0.0-2.0); EOSINOPHILS # 0.1 10^3/ul (0.0-0.5); EOSINOPHILS % 0.4 % (0.0-7.0); HEMATOCRIT 25.8 % (42.0-52.0); LYMPHOCYTES # 1.4 10^3/ul (0.8-2.9); LYMPHOCYTES % 6.6 % (15.0-51.0); MEAN CORPUSCULAR HEMOGLOBIN 26.6 pg (29.0-33.0); MEAN CORPUSCULAR VOLUME 85.7 fl (82.0-101.0); MEAN PLATELET VOLUME 11.5 fl (7.4-10.4); MONOCYTE # 1.4 10^3/ul (0.3-0.9); MONOCYTES % 6.3 % (0.0-11.0); NEUTROPHIL # 18.1 10^3/ul (1.6-7.5); NEUTROPHILS % 84.4 % (39.0-77.0); PLATELET COUNT 303 10^3/UL (140-415); RED BLOOD COUNT 3.01 10^6/ul (4.70-6.10); RED CELL DISTRIBUTION WIDTH 21.2 % (11.5-14.5)
[2018-11-15 07:21] LABS: PREALBUMIN 8.7 mg/dl (17.6-36.0)
[2018-11-15] MEDS: MEROPENEM 1 GM/50ML(PMX) 50 ML IVPB ×2 (09:42→22:13)
[2018-11-15] MEDS: POLYETHYLENE GLYCOL 17 GM PACKET PO ×2 (09:43→22:14)
[2018-11-15] MEDS: BACLOFEN 10 MG TAB NGT ×3 (09:43→22:14)
[2018-11-15] MEDS: HEPARIN 5,000 UNIT/1 ML VIAL SC ×2 (09:49→23:17)
[2018-11-15] MEDS: BALSAM PERU/CASTOR OIL 60 GM TUBE TOP ×2 (12:39→22:13)
[2018-11-15] MEDS: CASPOFUNGIN 50 MG in SOD CHLORIDE 0.9% 250 ML IVPB (14:23)
[2018-11-15] MEDS: FAMOTIDINE 20 MG INJ IV (22:14)
[2018-11-16 06:03] LABS: ADD MAN DIFF? NO
[2018-11-16 06:06] LABS: BASOPHILS % 0.1 % (0.0-2.0); EOSINOPHILS % 0.2 % (0.0-7.0); HEMATOCRIT 24.7 % (42.0-52.0); HEMOGLOBIN 7.7 g/dl (14.0-18.0); LYMPHOCYTES # 1.2 10^3/ul (0.8-2.9); LYMPHOCYTES % 5.9 % (15.0-51.0); MEAN CORPUSCULAR HEMOGLOBIN 26.9 pg (29.0-33.0); MEAN CORPUSCULAR HGB CONC 31.2 g/dl (32.0-37.0); MEAN CORPUSCULAR VOLUME 86.4 fl (82.0-101.0); MEAN PLATELET VOLUME 11.2 fl (7.4-10.4); MONOCYTE # 1.2 10^3/ul (0.3-0.9); MONOCYTES % 6.4 % (0.0-11.0); NEUTROPHIL # 16.6 10^3/ul (1.6-7.5); NEUTROPHILS % 85.9 % (39.0-77.0); PLATELET COUNT 306 10^3/UL (140-415); RED BLOOD COUNT 2.86 10^6/ul (4.70-6.10); RED CELL DISTRIBUTION WIDTH 21.3 % (11.5-14.5)
[2018-11-16 06:06] LABS: WHITE BLOOD COUNT 19.4 10^3/ul (4.8-10.8)
[2018-11-16 06:27] LABS: ALANINE AMINOTRANSFERASE 17 IU/L (13-69); ALBUMIN 2.5 g/dl (3.3-4.9); ALKALINE PHOSPHATASE 210 IU/L (42-121); ANION GAP 6 (5-13); ASPARTATE AMINO TRANSFERASE 21 IU/L (15-46); BLOOD UREA NITROGEN 21 mg/dl (7-20); CALCIUM 7.3 mg/dl (8.4-10.2); CARBON DIOXIDE 24 mmol/L (21-31); CHLORIDE 113 mmol/L (97-110); CREATININE 0.73 mg/dl (0.61-1.24); Estimated GFR > 60 mL/min (>60); GLUCOSE 94 mg/dl (70-220); POTASSIUM 3.7 mmol/L (3.5-5.1); SODIUM 143 mmol/L (135-144); TOTAL PROTEIN 6.6 g/dl (6.1-8.1)
[2018-11-16 06:28] LABS: PHOSPHORUS 2.6 mg/dl (2.5-4.9)
[2018-11-16 06:28] LABS: MAGNESIUM 1.6 mg/dl (1.7-2.5)
[2018-11-16] MEDS: FAMOTIDINE 20 MG INJ IV ×2 (08:57→21:57)
[2018-11-16] MEDS: POLYETHYLENE GLYCOL 17 GM PACKET PO ×2 (08:57→21:57)
[2018-11-16] MEDS: BACLOFEN 10 MG TAB NGT ×3 (08:57→21:57)
[2018-11-16] MEDS: MEROPENEM 1 GM/50ML(PMX) 50 ML IVPB ×2 (08:57→22:39)
[2018-11-16] MEDS: BALSAM PERU/CASTOR OIL 60 GM TUBE TOP ×2 (08:57→21:58)
[2018-11-16] MEDS: HEPARIN 5,000 UNIT/1 ML VIAL SC ×2 (09:27→22:36)
[2018-11-16] MEDS ORDERED: PETROLATUM 5 GM OINT TOP (10:50)
[2018-11-16] MEDS: BISACODYL 10 MG SUPP PR (11:05)
[2018-11-16] MEDS: MAGNESIUM SULFATE 3 GM in DEXTROSE 5% 100 ML IVPB (12:57)
[2018-11-16] MEDS: CASPOFUNGIN 50 MG in SOD CHLORIDE 0.9% 250 ML IVPB (14:51)
[2018-11-16 14:53] LABS: PROCALCITONIN 0.42 ng/mL (0.00-0.10)
[2018-11-17] MEDS: MEROPENEM 1 GM/50ML(PMX) 50 ML IVPB ×2 (08:29→22:25)
[2018-11-17] MEDS: BACLOFEN 10 MG TAB NGT ×3 (08:29→22:25)
[2018-11-17] MEDS: BALSAM PERU/CASTOR OIL 60 GM TUBE TOP ×2 (08:29→22:26)
[2018-11-17] MEDS: POLYETHYLENE GLYCOL 17 GM PACKET PO ×2 (08:29→22:24)
[2018-11-17] MEDS: FAMOTIDINE 20 MG INJ IV ×2 (08:29→22:24)
[2018-11-17] MEDS: HEPARIN 5,000 UNIT/1 ML VIAL SC ×2 (08:40→23:10)
[2018-11-17 11:28] LABS: ADD MAN DIFF? NO
[2018-11-17 11:33] LABS: ABNORMAL IP MESSAGE 1; BASOPHILS % 0.1 % (0.0-2.0); EOSINOPHILS # 0.1 10^3/ul (0.0-0.5); EOSINOPHILS % 0.4 % (0.0-7.0); LYMPHOCYTES # 0.8 10^3/ul (0.8-2.9); MEAN CORPUSCULAR HEMOGLOBIN 27.2 pg (29.0-33.0); MEAN CORPUSCULAR HGB CONC 31.4 g/dl (32.0-37.0); MEAN CORPUSCULAR VOLUME 86.6 fl (82.0-101.0); MEAN PLATELET VOLUME 11.9 fl (7.4-10.4); MONOCYTE # 1.1 10^3/ul (0.3-0.9); MONOCYTES % 6.9 % (0.0-11.0); NEUTROPHIL # 13.9 10^3/ul (1.6-7.5); NEUTROPHILS % 86.2 % (39.0-77.0); PLATELET COUNT 305 10^3/UL (140-415); POSITIVE DIFF @See below; RED BLOOD COUNT 2.54 10^6/ul (4.70-6.10); RED CELL DISTRIBUTION WIDTH 20.8 % (11.5-14.5)
[2018-11-17 11:33] LABS: WHITE BLOOD COUNT 16.1 10^3/ul (4.8-10.8)
[2018-11-17 11:43] LABS: HEMOGLOBIN 6.9 g/dl (14.0-18.0)
[2018-11-17 11:50] LABS: ALANINE AMINOTRANSFERASE 18 IU/L (13-69); ALBUMIN 2.5 g/dl (3.3-4.9); ALKALINE PHOSPHATASE 239 IU/L (42-121); ANION GAP 5 (5-13); ASPARTATE AMINO TRANSFERASE 19 IU/L (15-46); BILIRUBIN,INDIRECT 0.9 mg/dl (0-1.1); BILIRUBIN,TOTAL 0.9 mg/dl (0.2-1.3); BLOOD UREA NITROGEN 16 mg/dl (7-20); CALCIUM 7.4 mg/dl (8.4-10.2); CARBON DIOXIDE 23 mmol/L (21-31); CHLORIDE 109 mmol/L (97-110); Estimated GFR > 60 mL/min (>60); GLUCOSE 96 mg/dl (70-220); POTASSIUM 3.4 mmol/L (3.5-5.1); SODIUM 137 mmol/L (135-144); TOTAL PROTEIN 6.6 g/dl (6.1-8.1)
[2018-11-17 11:51] LABS: PHOSPHORUS 2.6 mg/dl (2.5-4.9)
[2018-11-17 11:51] LABS: MAGNESIUM 1.9 mg/dl (1.7-2.5)
[2018-11-17] MEDS: CASPOFUNGIN 50 MG in SOD CHLORIDE 0.9% 250 ML IVPB (15:37)
[2018-11-17] MEDS: SOD CHLORIDE 0.9% 250 ML IV* (18:56)
[2018-11-17] MEDS: BISACODYL 10 MG SUPP PR (22:24)
[2018-11-17] MEDS: ACETAMINOPHEN 325 MG TAB PO (22:25)
[2018-11-18 05:13] LABS: ADD MAN DIFF? NO
[2018-11-18 05:16] LABS: ABNORMAL IP MESSAGE 1; BASOPHILS % 0.1 % (0.0-2.0); EOSINOPHILS # 0.1 10^3/ul (0.0-0.5); EOSINOPHILS % 0.3 % (0.0-7.0); HEMATOCRIT 19.6 % (42.0-52.0); LYMPHOCYTES % 4.7 % (15.0-51.0); MEAN CORPUSCULAR HEMOGLOBIN 28.1 pg (29.0-33.0); MEAN CORPUSCULAR HGB CONC 32.1 g/dl (32.0-37.0); MEAN CORPUSCULAR VOLUME 87.5 fl (82.0-101.0); MEAN PLATELET VOLUME 11.8 fl (7.4-10.4); MONOCYTE # 1.4 10^3/ul (0.3-0.9); MONOCYTES % 6.9 % (0.0-11.0); NEUTROPHIL # 17.8 10^3/ul (1.6-7.5); NEUTROPHILS % 86.5 % (39.0-77.0); PLATELET COUNT 345 10^3/UL (140-415); POSITIVE DIFF @See below; RED BLOOD COUNT 2.24 10^6/ul (4.70-6.10); RED CELL DISTRIBUTION WIDTH 19.7 % (11.5-14.5)
[2018-11-18 05:16] LABS: WHITE BLOOD COUNT 20.7 10^3/ul (4.8-10.8)
[2018-11-18 05:28] LABS: HEMOGLOBIN 6.3 g/dl (14.0-18.0)
[2018-11-18 05:33] LABS: ALANINE AMINOTRANSFERASE 17 IU/L (13-69); ALBUMIN 2.4 g/dl (3.3-4.9); ALBUMIN/GLOBULIN RATIO 0.55; ALKALINE PHOSPHATASE 271 IU/L (42-121); ANION GAP 6 (5-13); ASPARTATE AMINO TRANSFERASE 21 IU/L (15-46); BILIRUBIN,INDIRECT 1.3 mg/dl (0-1.1); BILIRUBIN,TOTAL 1.3 mg/dl (0.2-1.3); BLOOD UREA NITROGEN 15 mg/dl (7-20); CALCIUM 7.6 mg/dl (8.4-10.2); CARBON DIOXIDE 24 mmol/L (21-31); CHLORIDE 111 mmol/L (97-110); CREATININE 0.67 mg/dl (0.61-1.24); Estimated GFR > 60 mL/min (>60); GLUCOSE 100 mg/dl (70-220); POTASSIUM 3.3 mmol/L (3.5-5.1); SODIUM 141 mmol/L (135-144); TOTAL PROTEIN 6.7 g/dl (6.1-8.1)
[2018-11-18 05:39] LABS: INR 1.18; PROTIME 15.1 Sec (11.9-14.9); PT RATIO 1.2
[2018-11-18] MEDS: SOD CHLORIDE 0.9% 250 ML IV* (05:46)
[2018-11-18 06:05] LABS: IRON 11 ug/dl (35-150)
[2018-11-18 06:14] LABS: % IRON SATURATION 7 % SAT (22-52); TOTAL IRON BINDING CAPACITY 169 ug/dl (241-421)
[2018-11-18 06:26] LABS: IMMEDIATE SPIN CROSSMATCH 1 2
[2018-11-18 06:48] LABS: MAGNESIUM 1.8 mg/dl (1.7-2.5)
[2018-11-18 06:48] LABS: PHOSPHORUS 2.5 mg/dl (2.5-4.9)
[2018-11-18 07:13] LABS: OCCULT BLOOD STOOL NEGATIVE (NEGATIVE)
[2018-11-18] MEDS: POTASSIUM CHLORIDE 20 MEQ POWDER FOR ORAL SOLN GTB (08:42)
[2018-11-18] MEDS: FAMOTIDINE 20 MG INJ IV ×2 (08:43→20:57)
[2018-11-18] MEDS: POLYETHYLENE GLYCOL 17 GM PACKET PO ×2 (08:43→20:50)
[2018-11-18] MEDS: MEROPENEM 1 GM/50ML(PMX) 50 ML IVPB ×2 (08:43→20:49)
[2018-11-18] MEDS: BACLOFEN 10 MG TAB NGT ×3 (08:43→20:49)
[2018-11-18] MEDS: BALSAM PERU/CASTOR OIL 60 GM TUBE TOP ×2 (08:44→20:57)
[2018-11-18] MEDS: HEPARIN 5,000 UNIT/1 ML VIAL SC ×2 (08:49→20:51)
[2018-11-18] MEDS: ACETAMINOPHEN 325 MG TAB PO (08:51)
[2018-11-18] MEDS ORDERED: OXYBUTYNIN (XL) 5 MG TAB PO (12:57)
[2018-11-18 13:16] LABS: HEMATOCRIT 28.1 % (42.0-52.0); HEMOGLOBIN 9.2 g/dl (14.0-18.0)
[2018-11-18] MEDS: OXYBUTYNIN 5 MG TAB PO ×2 (13:27→20:49)
[2018-11-18] MEDS: SOD CHLORIDE 0.9% 100 ML (16:11)
[2018-11-18] MEDS: IOHEXOL 300MG/ML 150 ML BTL (16:11)
[2018-11-18] MEDS: CASPOFUNGIN 50 MG in SOD CHLORIDE 0.9% 250 ML IVPB (17:42)
[2018-11-19 05:47] LABS: ADD MAN DIFF? NO
[2018-11-19 06:05] LABS: BASOPHIL # 0.1 10^3/ul (0.0-0.1); BASOPHILS % 0.3 % (0.0-2.0); EOSINOPHILS # 0.1 10^3/ul (0.0-0.5); EOSINOPHILS % 0.3 % (0.0-7.0); HEMATOCRIT 27.8 % (42.0-52.0); HEMOGLOBIN 8.9 g/dl (14.0-18.0); LYMPHOCYTES # 0.8 10^3/ul (0.8-2.9); LYMPHOCYTES % 4.1 % (15.0-51.0); MEAN CORPUSCULAR HEMOGLOBIN 27.2 pg (29.0-33.0); MEAN PLATELET VOLUME 12.7 fl (7.4-10.4); MONOCYTE # 1.4 10^3/ul (0.3-0.9); MONOCYTES % 7.5 % (0.0-11.0); NEUTROPHIL # 16.6 10^3/ul (1.6-7.5); NEUTROPHILS % 86.9 % (39.0-77.0); PLATELET COUNT 326 10^3/UL (140-415); RED BLOOD COUNT 3.27 10^6/ul (4.70-6.10); RED CELL DISTRIBUTION WIDTH 19.3 % (11.5-14.5)
[2018-11-19 06:05] LABS: WHITE BLOOD COUNT 19.1 10^3/ul (4.8-10.8)
[2018-11-19 06:32] LABS: ANION GAP 6 (5-13); BLOOD UREA NITROGEN 14 mg/dl (7-20); CALCIUM 7.7 mg/dl (8.4-10.2); CARBON DIOXIDE 23 mmol/L (21-31); CHLORIDE 110 mmol/L (97-110); CREATININE 0.62 mg/dl (0.61-1.24); Estimated GFR > 60 mL/min (>60); GLUCOSE 92 mg/dl (70-220); MAGNESIUM 1.8 mg/dl (1.7-2.5); PHOSPHORUS 2.6 mg/dl (2.5-4.9); POTASSIUM 3.6 mmol/L (3.5-5.1); SODIUM 139 mmol/L (135-144)
[2018-11-19] MEDS: *CONTINUE SAME TPN IV (07:00)
[2018-11-19] MEDS: OXYBUTYNIN 5 MG TAB PO ×3 (08:14→21:00)
[2018-11-19] MEDS: BACLOFEN 10 MG TAB NGT ×3 (08:14→21:00)
[2018-11-19] MEDS: POLYETHYLENE GLYCOL 17 GM PACKET PO ×2 (08:14→21:00)
[2018-11-19] MEDS: FAMOTIDINE 20 MG INJ IV ×2 (08:28→21:19)
[2018-11-19] MEDS: hydrALAzine 20 MG INJ IV (08:28)
[2018-11-19] MEDS: HEPARIN 5,000 UNIT/1 ML VIAL SC ×2 (08:31→22:20)
[2018-11-19] MEDS: MEROPENEM 1 GM/50ML(PMX) 50 ML IVPB ×2 (08:31→21:19)
[2018-11-19] MEDS: BALSAM PERU/CASTOR OIL 60 GM TUBE TOP ×2 (08:32→21:20)
[2018-11-19 11:05] LABS: ALANINE AMINOTRANSFERASE 17 IU/L (13-69); ALBUMIN 2.5 g/dl (3.3-4.9); ALBUMIN/GLOBULIN RATIO 0.56; ALKALINE PHOSPHATASE 287 IU/L (42-121); ANION GAP 6 (5-13); ASPARTATE AMINO TRANSFERASE 22 IU/L (15-46); BILIRUBIN,INDIRECT 1.1 mg/dl (0-1.1); BILIRUBIN,TOTAL 1.1 mg/dl (0.2-1.3); BLOOD UREA NITROGEN 14 mg/dl (7-20); CALCIUM 7.7 mg/dl (8.4-10.2); CARBON DIOXIDE 23 mmol/L (21-31); CHLORIDE 110 mmol/L (97-110); CREATININE 0.63 mg/dl (0.61-1.24); Estimated GFR > 60 mL/min (>60); GLUCOSE 77 mg/dl (70-220); MAGNESIUM 1.7 mg/dl (1.7-2.5); PHOSPHORUS 2.7 mg/dl (2.5-4.9); POTASSIUM 3.5 mmol/L (3.5-5.1); SODIUM 139 mmol/L (135-144); TOTAL PROTEIN 6.9 g/dl (6.1-8.1); TRIGLYCERIDES 89 mg/dl (0-149)
[2018-11-19 12:08] LABS: PREALBUMIN 5.8 mg/dl (17.6-36.0)
[2018-11-19] MEDS: LIDOCAINE 1% (MDV) 20 ML INJ (13:37)
[2018-11-19] MEDS: FENTAnyl 50 MCG/ML VIAL (14:39)
[2018-11-19] MEDS: CASPOFUNGIN 50 MG in SOD CHLORIDE 0.9% 250 ML IVPB (15:52)
[2018-11-19] MEDS: ACCU-CHEK XX ×2 (17:00→21:18)
[2018-11-19] MEDS: TPN 1,000 ML IV (17:56)
[2018-11-20] MEDS: ACCU-CHEK XX ×6 (01:37→21:47)
[2018-11-20 06:16] LABS: ADD MAN DIFF? NO
[2018-11-20 06:24] LABS: WHITE BLOOD COUNT 12.6 10^3/ul (4.8-10.8)
[2018-11-20 06:24] LABS: BASOPHILS % 0.2 % (0.0-2.0); EOSINOPHILS % 0.2 % (0.0-7.0); HEMATOCRIT 26.1 % (42.0-52.0); HEMOGLOBIN 8.3 g/dl (14.0-18.0); LYMPHOCYTES # 0.6 10^3/ul (0.8-2.9); MEAN CORPUSCULAR HEMOGLOBIN 27.4 pg (29.0-33.0); MEAN CORPUSCULAR HGB CONC 31.8 g/dl (32.0-37.0); MEAN CORPUSCULAR VOLUME 86.1 fl (82.0-101.0); MONOCYTES % 7.8 % (0.0-11.0); NEUTROPHIL # 10.8 10^3/ul (1.6-7.5); NEUTROPHILS % 85.8 % (39.0-77.0); PLATELET COUNT 360 10^3/UL (140-415); RED BLOOD COUNT 3.03 10^6/ul (4.70-6.10); RED CELL DISTRIBUTION WIDTH 19.2 % (11.5-14.5)
[2018-11-20 06:48] LABS: ANION GAP 4 (5-13); BLOOD UREA NITROGEN 15 mg/dl (7-20); CALCIUM 7.8 mg/dl (8.4-10.2); CARBON DIOXIDE 24 mmol/L (21-31); CHLORIDE 108 mmol/L (97-110); CREATININE 0.63 mg/dl (0.61-1.24); Estimated GFR > 60 mL/min (>60); GLUCOSE 110 mg/dl (70-220); MAGNESIUM 1.9 mg/dl (1.7-2.5); PHOSPHORUS 2.7 mg/dl (2.5-4.9); POTASSIUM 3.4 mmol/L (3.5-5.1); SODIUM 136 mmol/L (135-144)
[2018-11-20] MEDS: ALBUTEROL/IPRATROPIUM (NEB) 3 ML AMP NEB (07:16)
[2018-11-20] MEDS: POTASSIUM CHLORIDE 100 ML IVPB ×2 (07:38→10:15)
[2018-11-20] MEDS: TPN 1,000 ML IV ×2 (07:40→21:58)
[2018-11-20] MEDS: OXYBUTYNIN 5 MG TAB PO ×3 (07:55→21:05)
[2018-11-20] MEDS: BACLOFEN 10 MG TAB NGT ×3 (07:55→21:04)
[2018-11-20] MEDS: POLYETHYLENE GLYCOL 17 GM PACKET PO ×2 (07:56→21:04)
[2018-11-20] MEDS: BALSAM PERU/CASTOR OIL 60 GM TUBE TOP ×2 (09:04→21:05)
[2018-11-20] MEDS: FAMOTIDINE 20 MG INJ IV ×2 (09:04→21:04)
[2018-11-20] MEDS: MEROPENEM 1 GM/50ML(PMX) 50 ML IVPB ×2 (09:04→21:04)
[2018-11-20] MEDS: HEPARIN 5,000 UNIT/1 ML VIAL SC ×2 (09:10→21:27)
[2018-11-20] MEDS: CASPOFUNGIN 50 MG in SOD CHLORIDE 0.9% 250 ML IVPB (14:22)
[2018-11-21] MEDS: ACCU-CHEK XX ×5 (01:00→17:38)
[2018-11-21 06:30] LABS: ANION GAP 5 (5-13); BLOOD UREA NITROGEN 16 mg/dl (7-20); CALCIUM 7.7 mg/dl (8.4-10.2); CARBON DIOXIDE 24 mmol/L (21-31); CHLORIDE 109 mmol/L (97-110); CREATININE 0.58 mg/dl (0.61-1.24); Estimated GFR > 60 mL/min (>60); GLUCOSE 103 mg/dl (70-220); MAGNESIUM 1.9 mg/dl (1.7-2.5); PHOSPHORUS 2.4 mg/dl (2.5-4.9); POTASSIUM 3.8 mmol/L (3.5-5.1); SODIUM 138 mmol/L (135-144)
[2018-11-21] MEDS: OXYBUTYNIN 5 MG TAB PO ×2 (09:00→12:35)
[2018-11-21] MEDS: POLYETHYLENE GLYCOL 17 GM PACKET PO (09:00)
[2018-11-21] MEDS: FAMOTIDINE 20 MG INJ IV (09:00)
[2018-11-21] MEDS: BACLOFEN 10 MG TAB NGT ×2 (09:00→12:35)
[2018-11-21] MEDS: HEPARIN 5,000 UNIT/1 ML VIAL SC (09:01)
[2018-11-21] MEDS: BALSAM PERU/CASTOR OIL 60 GM TUBE TOP (09:02)
[2018-11-21] MEDS: MEROPENEM 1 GM/50ML(PMX) 50 ML IVPB (09:31)
[2018-11-21] MEDS: POTASSIUM PHOSPHATE 15 MM in SOD CHLORIDE 0.9% 250 ML IVPB (11:08)
[2018-11-21] MEDS: TPN 1,000 ML IV (12:45)
[2018-11-21] MEDS: CASPOFUNGIN 50 MG in SOD CHLORIDE 0.9% 250 ML IVPB (15:45)
== END 2018-11-21 20:16 | DRG 329 ==
LOC: 6WM 11-14 05:45 → E/R 03:18 → 6WM 11-01 14:08 → ICU 11-07 11:58 → 6WM 13:51 → ICU 06:21
PROC: 0DH63UZ Insertion of Feeding Device into Stomach, Percutaneous Approach (ICD-10-PCS; principal; 2018-11-05 18:50)
PROC: 0DQ80ZZ Repair Small Intestine, Open Approach (ICD-10-PCS; 2018-11-05 18:50)
PROC: 0DB80ZZ Excision of Small Intestine, Open Approach (ICD-10-PCS; 2018-11-05 18:50)
PROC: 0DTJ0ZZ Resection of Appendix, Open Approach (ICD-10-PCS; 2018-11-05 18:50)
PROC: 30233N1 Transfusion of Nonautologous Red Blood Cells into Peripheral Vein, Percutaneous Approach (ICD-10-PCS; 2018-11-05 18:50)
PROC: 0W9G30Z Drainage of Peritoneal Cavity with Drainage Device, Percutaneous Approach (ICD-10-PCS; 2018-11-05 18:50)
PROC: 5A1955Z Respiratory Ventilation, Greater than 96 Consecutive Hours (ICD-10-PCS; 2018-11-05 18:50)
PROC: 02HV33Z Insertion of Infusion Device into Superior Vena Cava, Percutaneous Approach (ICD-10-PCS; 2018-11-05 18:50)
PROC: 0TPB70Z Removal of Drainage Device from Bladder, Via Natural or Artificial Opening (ICD-10-PCS; 2018-11-05 18:50)
PROC: 0T9B70Z Drainage of Bladder with Drainage Device, Via Natural or Artificial Opening (ICD-10-PCS; 2018-11-05 18:50)
DX: K56.691 Other complete intestinal obstruction (principal); K63.1 Perforation of intestine (nontraumatic); L89.313 Pressure ulcer of right buttock, stage 3; J96.20 Acute and chronic respiratory failure, unspecified whether with hypoxia or hypercapnia; J69.0 Pneumonitis due to inhalation of food and vomit; G82.50 Quadriplegia, unspecified; R65.21 Severe sepsis with septic shock; A41.9 Sepsis, unspecified organism; N17.0 Acute kidney failure with tubular necrosis; K35.32 Acute appendicitis with perforation, localized peritonitis, and gangrene, without abscess; K65.1 Peritoneal abscess; Z99.11 Dependence on respirator [ventilator] status; J90 Pleural effusion, not elsewhere classified; E87.1 Hypo-osmolality and hyponatremia; N39.0 Urinary tract infection, site not specified; N17.9 Acute kidney failure, unspecified; R64 Cachexia; Z68.1 Body mass index [BMI] 19.9 or less, adult; E44.0 Moderate protein-calorie malnutrition; J98.11 Atelectasis; K46.0 Unspecified abdominal hernia with obstruction, without gangrene; E27.40 Unspecified adrenocortical insufficiency; K56.0 Paralytic ileus; B96.89 Other specified bacterial agents as the cause of diseases classified elsewhere; D72.829 Elevated white blood cell count, unspecified; D63.8 Anemia in other chronic diseases classified elsewhere; E87.6 Hypokalemia; E86.9 Volume depletion, unspecified; I95.9 Hypotension, unspecified; I10 Essential (primary) hypertension; N31.9 Neuromuscular dysfunction of bladder, unspecified; N28.1 Cyst of kidney, acquired; R62.7 Adult failure to thrive; Q43.0 Meckel's diverticulum (displaced) (hypertrophic); Z93.0 Tracheostomy status; Z93.51 Cutaneous-vesicostomy status
CPT/HCPCS: 36430; 36569; 36600; 71045; 74018; 74176; 74177; 74230; 74250; 76604; 76775; 77012; 80048; 80053; 80202; 81001; 81003; 82043; 82270; 82533; 82803; 82947; 82962; 83036; 83540; 83605; 83690; 83735; 84100; 84132; 84134; 84145; 84155; 84300; 84443; 84478; 84484; 85014; 85018; 85025; 85049; 85610; 85670; 85730; 86850; 86900; 86901; 86920; 87040-91; 87070; 87081; 87086; 88304; 92526; 92610; 92611; 93005; 94002; 94003; 94640; 94664; 96365; 96375; 99285-25